=== PATIENT | male | born 1950 | race Caucasian/White ===

== ENCOUNTER 2017-10-25 11:18 | Emergency (ER) | payer MEDICARE ==
[2017-10-25 12:11] LABS: Hemoglobin 14.7 g/dL (14.0-18.0); Mean Corpuscular HGB CONC 34.3 g/dL (32.0-36.0); Mean Corpuscular Hemoglobin 34.5 pg (27.0-31.0); Mean Platelet Volume 6.7 fL (7.4-10.4); Platelet Count 216 thou/uL (130-400); RBC Distribution Width 11.9 % (11.5-14.5); Red Blood Cell (RBC) Count 4.26 mill/uL (4.70-6.10); White Blood Cell (WBC) Count 5.3 thou/uL (4.8-10.8)
[2017-10-25 12:29] LABS: ALT (SGPT) 52 U/L (8-55); AST (SGOT) 54 U/L (5-34); Albumin 4.1 g/dL (3.4-4.8); Alkaline Phosphatase 128 U/L (40-150); Anion Gap 13 mmol/L (10-20); BUN (Urea Nitrogen) 9 mg/dL (8.4-25.7); Bilirubin, Total 0.4 mg/dL (0.2-1.2); Calc. Creatinine Clearance 0 mL/min (70-130); Calcium 9.4 mg/dL (7.8-10.44); Carbon Dioxide 24 mmol/L (23-31); Chloride 93 mmol/L (98-107); Estimated GFR-MDRD 83; Globulin 3.2 g/dL (2.4-3.5); Glucose 189 mg/dL (80-115); Magnesium 1.8 mg/dL (1.6-2.6); Potassium 4.7 mmol/L (3.5-5.1); Protein, Total 7.3 g/dL (5.8-8.1); Sodium 125 mmol/L (136-145)
[2017-10-25 12:52] LABS: Lymphocytes 16 % (21-51); MDiff Complete? YES; Metamyelocyte 1 % (0-0); Monocytes 14 % (0-10); Neutrophil 69 % (42-75); PLT Morphology Comment Appears Adequate
== END 2017-10-25 14:40 | disposition home or self-care (01) ==
LOC: ERS 11:18
DX: E87.1 Hypo-osmolality and hyponatremia (principal); G62.9 Polyneuropathy, unspecified; E78.5 Hyperlipidemia, unspecified; I10 Essential (primary) hypertension; F41.9 Anxiety disorder, unspecified; F17.210 Nicotine dependence, cigarettes, uncomplicated; Z71.6 Tobacco abuse counseling
CPT/HCPCS: 36415; 80053; 83735; 84100; 85025; 99406

== ENCOUNTER 2018-05-11 00:42 | Inpatient (IN) | payer MEDICARE ==
[2018-05-11] MEDS ORDERED: Albuterol Sulfate 2.5 mg/3 ml Neb ONE ×2 (01:03→01:23)
[2018-05-11] MEDS ORDERED: Sodium Chloride 0.9% 100 ML ONE (01:07)
[2018-05-11] MEDS ORDERED: cefTRIAXone\\ROCEPHIN 2 GM VIAL ONE (01:07)
[2018-05-11] MEDS ORDERED: Azithromycin 500 MG VIAL ONE (01:07)
[2018-05-11 01:20] LABS: #Basophils 0.1 thou/uL (0.0-0.2); #Eosinphils 0.1 thou/uL (0.0-0.7); #Lymphocytes 1.9 thou/uL (1.20-3.40); #Monocytes 1.1 thou/uL (0.11-0.59); #Neutrophils 4.1 thou/uL (1.40-6.50); %Lymphocytes 25.8 % (21.0-51.0); %Monocytes 14.7 % (0.0-10.0); %Neutrophils 57.5 % (42.0-75.0); Hemoglobin 13.9 g/dL (14.0-18.0); Mean Corpuscular HGB CONC 33.2 g/dL (32.0-36.0); Mean Corpuscular Hemoglobin 33.2 pg (27.0-31.0); Mean Corpuscular Volume 99.9 fL (78.0-98.0); Mean Platelet Volume 7.8 fL (7.4-10.4); Platelet Count 311 thou/uL (130-400); RBC Distribution Width 11.7 % (11.5-14.5); White Blood Cell (WBC) Count 7.2 thou/uL (4.8-10.8)
[2018-05-11] MEDS ORDERED: Magnesium 2 GM/50 ML BAG (IN WATER) ONE (01:30)
[2018-05-11] MEDS ORDERED: methylPREDNISolone Sod Succ/PF 125 MG/2 ML VIAL ONE (01:30)
[2018-05-11 01:38] LABS: ALT (SGPT) 24 U/L (8-55); AST (SGOT) 27 U/L (5-34); Alkaline Phosphatase 88 U/L (40-150); Anion Gap 12 mmol/L (10-20); BUN (Urea Nitrogen) 11 mg/dL (8.4-25.7); Bilirubin, Total 0.6 mg/dL (0.2-1.2); Calc. Creatinine Clearance 0 mL/min (70-130); Calcium 9.2 mg/dL (7.8-10.44); Carbon Dioxide 26 mmol/L (23-31); Chloride 91 mmol/L (98-107); Estimated GFR-MDRD 79; Globulin 3.5 g/dL (2.4-3.5); Glucose 156 mg/dL (80-115); Potassium 4.1 mmol/L (3.5-5.1); Protein, Total 7.5 g/dL (5.8-8.1); Sodium 125 mmol/L (136-145)
[2018-05-11 01:43] LABS: CKMB 3.8 ng/mL (0-6.6)
[2018-05-11 01:45] LABS: Troponin I 6.238 ng/mL (< 0.028)
[2018-05-11] MEDS ORDERED: Furosemide 20 MG/2 ML VIAL ONE (01:55)
[2018-05-11] MEDS ORDERED: Enoxaparin Sodium 80 MG/0.8 ML SYRINGE ONE (02:02)
[2018-05-11] MEDS ORDERED: Enoxaparin Sodium 100 MG/ML SYRINGE ONE (02:06)
[2018-05-11] MEDS ORDERED: Albuterol Sulfate 2.5 mg/0.5 ml Neb ONE (02:13)
[2018-05-11] MEDS ORDERED: Sodium Chloride For Inhalation 0.9% 3 ML NEB ONE (02:20)
[2018-05-11] MEDS ORDERED: Dextrose 50% Abboject 50 ML SYRINGE SLOW IVP PRN (02:47)
[2018-05-11] MEDS ORDERED: Dextrose 5% in Water 1,000 ML IV PRN (02:47)
[2018-05-11] MEDS ORDERED: Ondansetron PF 4 MG/2 ML Vial IVP PRN (02:56)
[2018-05-11] MEDS ORDERED: Acetaminophen 325 MG TAB PO PRN (02:56)
[2018-05-11] MEDS ORDERED: Ondansetron ODT 4 MG TAB PO PRN (02:56)
[2018-05-11] MEDS ORDERED: Nicotine 14 MG PATCH TD SCH (03:00)
[2018-05-11 03:45] VITALS: BMI 28.3
--- NOTE | 2018-05-11 04:38 | HP ---
CHIEF COMPLAINT: Shortness of breath. HISTORY OF PRESENT ILLNESS: This is a 68-year-old male with past medical history of hyperlipidemia, hypertension, diabetes mellitus type 2, presenting with shortness of breath, chest discomfort and lower leg extremity numbness. Per patient, he has been having shortness of breath for the past 10 days and he states that his shortness of breath has been getting progressively worse and also patient has been stating that he has been having associated symptoms of left lower extremity numbness and patient has been dragging his foot while he walks. Per the patient, he has never had this type of symptoms in the past. The patient states that he last saw his primary care doctor 6 months ago and workup that was done for him was normal. The patient states that PCP is Dr. Davies. Per the patient, when he started having his symptoms of lower extremity numbness, shortness of breath, he contacted his primary care doctor and primary care doctor advised the patient to come to the ED. Per electronic medical records, the patient has been eating a lot of salts, patient does not take care of himself. Per the , the patient is noncompliant with some of his medications. The patient denies any fever, dizziness, chills, palpitations , abdominal pain; however, admits to shortness of breath for the past 10 days, chest discomfort and numbness in the left lower extremity. REVIEW OF SYSTEMS: Positive for shortness of breath, chest discomfort, left lower extremity numbness. Otherwise as documented in the HPI, all other systems reviewed and are negative PAST MEDICAL HISTORY: Hyperlipidemia, diabetes mellitus type 2, hypertension. FAMILY HISTORY: Reviewed and noncontributory. PAST SURGICAL HISTORY: No surgical history. PSYCHIATRIC HISTORY: Anxiety. SOCIAL HISTORY: The patient lives at home with . The patient is a chronic drinker. Per patient, he quit drinking 10 days ago. The patient drinks more than 10 drinks per day. The patient is also currently a tobacco smoker. The patient chews tobacco. The patient states that he quit smoking 10 days ago. The patient denies any illicit drug use. ALLERGIES: No known drug allergies. CURRENT MEDICATIONS: Per , patient takes lisinopril, atenolol. The patient is supposed to take atorvastatin, but patient does not take it and patient does not take his metformin. PHYSICAL EXAMINATION: VITAL SIGNS: Blood pressure is 167/84, pulse of 88, respiratory rate of 16, temperature of 98.6, oxygen saturation of 96 on room air. GENERAL: The patient is sitting in bed in mild distress. The patient has a nasal cannula on and patient is satting at 94 on 2 liters. The patient is able to speak in full sentences. The patient is not using accessory muscles to breathe. HEENT: Normocephalic, atraumatic. Pupils are equally round and reactive to light. Extraocular movements are intact. No scleral icterus. No conjunctival pallor. Mucous membranes are moist. Trachea is midline. Full range of motion. NECK: Supple. LUNGS: The patient has wheezes bilaterally at the anterior lung colón and posterior lung colón. The patient also has some rales that can be appreciated in the posterior lung colón at the bases bilaterally. CARDIOVASCULAR: The patient is tachycardic. No murmurs can be appreciated. ABDOMEN: Soft, nontender, nondistended. No peritoneal signs, no rigidity, no guarding. Positive bowel sounds in all quadrants. EXTREMITIES: Upper extremity, patient has good upper extremity strength and good radial pulses bilaterally. Lower extremity, patient has a rash noted at the posterior aspect around the heel, which looked as psoriasis. There are some scaly white lesions noted and some erythema around and at the knees, the white scaly lesions. The patient has 2+ pitting edema. The patient is having difficulty with range of motion at the ankle region; however, patient is able to move lower extremities bilaterally. NEUROLOGIC: Cranial nerves II-XII grossly intact. No neurologic deficits noted. SKIN: Refer to description of the lower extremity. PSYCHIATRIC: Normal affect. Alert and oriented x3. LABORATORY DATA: Chest x-ray shows bilateral pleural effusion and patchy infiltrates noted. WBC 7.2, hemoglobin is 13.9, hematocrit is 41.9, platelet count is 311. Sodium 125, potassium is 4.1, chloride is 91, carbon dioxide 26, anion gap of 12, BUN is 11, creatinine is 0.95, GFR is 79, glucose is 159, lactic acid of 2.1, calcium of 9.2, AST of 27, ALT of 24, alkaline phosphatase is 88. Troponin is 6.238. BNP is 2196. ASSESSMENT AND PLAN: This is a 68-year-old male being admitted for: 1. New onset acute congestive heart failure. The patient has been given Lasix in the ED. We are going to continue patient on Lasix. We have consulted Cardiology, we will follow up with their recommendations. We will start the patient on congestive heart failure protocol. 2. Shortness of breath likely due to overloaded state. The patient has infiltrated bilaterally on chest x-ray. The patient has been given Lasix. We will continue to diurese the patient. We will continue to monitor the patient. We will give DuoNeb treatments. We will give Solu-Medrol. We will put BiPAP p.r.n. to be given when patient is desaturating. We are going to admit the patient to the [facility] to be observed closely. We have consulted Pulmonology to see the patient. We will follow up with their recommendations. 3. Non ST elevation myocardial infarction. The patient had a troponin of 6.1. At this point, we are going to treat the patient for non ST elevation myocardial infarction. We have consulted Cardiology. We will continue patient on current management. 4. Hyponatremia, most likely due to hypervolemic state. The patient has acute congestive heart failure, most likely causing patient to have hyponatremia. At this point, the patient is being diuresed. We will continue to monitor the patient's sodium closely. We will follow up in the morning electrolytes. 5. History of diabetes mellitus type 2. We will do insulin sliding scale. 6. Hyperlipidemia. We will continue patient on atorvastatin. 7. Hypertension. We will monitor patient's blood pressure closely. We will give the patient blood pressure medications as needed. 8. Deep venous thrombosis and gastrointestinal prophylaxis. The patient is currently on therapeutic Lovenox. We will continue to monitor the patient. NEENAD
[2018-05-11 04:53] LABS: ALT (SGPT) 23 U/L (8-55); AST (SGOT) 22 U/L (5-34); Albumin 3.7 g/dL (3.4-4.8); Alkaline Phosphatase 79 U/L (40-150); Anion Gap 14 mmol/L (10-20); BUN (Urea Nitrogen) 11 mg/dL (8.4-25.7); Bilirubin, Total 0.4 mg/dL (0.2-1.2); Calc. Creatinine Clearance 105 mL/min (70-130); Calcium 8.7 mg/dL (7.8-10.44); Carbon Dioxide 26 mmol/L (23-31); Cardiac Risk 3.7 (Less than 4.5); Chloride 91 mmol/L (98-107); Cholesterol 139 mg/dl (< 200 Desired); Estimated GFR-MDRD 87; Globulin 3.2 g/dL (2.4-3.5); Glucose 176 mg/dL (80-115); HDL Cholesterol 38 mg/dL (>60 Neg Risk); LDL Cholesterol, Calculated 88 mg/dL; Magnesium 1.8 mg/dL (1.6-2.6); Potassium 4.2 mmol/L (3.5-5.1); Protein, Total 6.9 g/dL (5.8-8.1); Sodium 127 mmol/L (136-145); Triglycerides 67 mg/dL (Less than 150)
[2018-05-11 04:59] LABS: #Lymphocytes 0.4 thou/uL (1.20-3.40); #Monocytes 0.4 thou/uL (0.11-0.59); #Neutrophils 7.2 thou/uL (1.40-6.50); %Eosinophils 0.3 % (0.0-10.0); %Lymphocytes 4.9 % (21.0-51.0); %Monocytes 4.7 % (0.0-10.0); Critical Call Chem Troponin I RESULT DECREASING; Mean Corpuscular HGB CONC 33.7 g/dL (32.0-36.0); Mean Corpuscular Hemoglobin 33.5 pg (27.0-31.0); Mean Corpuscular Volume 99.3 fL (78.0-98.0); Mean Platelet Volume 8.1 fL (7.4-10.4); Platelet Count 271 thou/uL (130-400); RBC Distribution Width 11.7 % (11.5-14.5); Red Blood Cell (RBC) Count 3.88 mill/uL (4.70-6.10); Troponin I 4.554 ng/mL (< 0.028)
[2018-05-11 05:18] LABS: Lactic Acid 1.8 mmol/L (0.5-2.2)
[2018-05-11] MEDS: Nicotine 14 MG PATCH TD SCH (05:40)
[2018-05-11] MEDS: Furosemide 40 MG/4 ML VIAL SLOW IVP SCH ×2 (05:43→13:14)
[2018-05-11] MEDS: Nitroglycerin 2% Ointment 1 INCH/1 GM Packet TOP SCH ×3 (05:44→22:23)
[2018-05-11] MEDS: HumaLOG 300 UNITS/3 ML VIAL SC PRN (06:00)
[2018-05-11] MEDS ORDERED: cefTRIAXone\\ROCEPHIN 1 GM in Sodium Chloride 0.9% 100 ML IVPB SCH (07:00)
--- NOTE | 2018-05-11 07:48 | RAD ---
CHEST 1 VIEW: Date: 05/11/18 INDICATION: History of shortness of breath, chest pain. COMPARISON: None. FINDINGS: There is cardiomegaly with prominent perihilar interstitial and air space opacities. There are small bilateral pleural effusions. No pneumothorax is evident. No acute osseous abnormality is evident. IMPRESSION: Cardiomegaly with pulmonary vascular congestion, perihilar opacities, and bilateral pleural effusions , suspicious for CHF. Prominent perihilar infiltrates from pneumonia is not excluded. Recommend mendoza nued radiographic follow-up. POS: HEIDE
[2018-05-11] MEDS ORDERED: Azithromycin 500 MG in Sodium Chloride 0.9% 250 ML 250 ML IVPB SCH (08:00)
[2018-05-11 08:51] LABS: Troponin I 4.879 ng/mL (< 0.028)
--- NOTE | 2018-05-11 09:19 | RAD ---
PORTABLE CHEST 1 VIEW: Date: 05/11/18 Time: 0524 hours HISTORY: Congestive heart failure. FINDINGS/IMPRESSION: Comparison made with exam at 0058 hours from the same date. There has been interval worsening of pulmonary vascular congestion since the earlier exam. POS: LANDRY
[2018-05-11] MEDS: Clopidogrel Bisulfate 75 MG TAB PO SCH (09:55)
[2018-05-11] MEDS: Aspirin 325 MG TAB PO SCH (09:55)
[2018-05-11] MEDS: Enoxaparin Sodium 100 MG/ML SYRINGE SC SCH ×2 (09:55→20:37)
[2018-05-11] MEDS: Lisinopril 10 MG TAB PO SCH (09:56)
--- NOTE | 2018-05-11 16:11 | PDOC.EVN ---
Event Note - Event Note Event Note: Pt seen & examined.Chart reviewed.care discussed wpt and at bedside.care discussed w RN Smokes like a chimey and drinks 14-18 beers daily. FH of Stroke in both parents One brother had PPM. Cont diuresis. Cont BID lovenox and ASA,plavix,BB,JESSICA-I..Await ECHO results.Cardiology consulted cont nebs,steroids,ABx. HD stable. Will fiordaliza need cardiac Catheterization
[2018-05-11] MEDS ORDERED: Communication Order-Pharmacy FS SCH (16:15)
[2018-05-11] MEDS: Carvedilol 3.125 MG TAB PO SCH (17:38)
[2018-05-11] MEDS: Atorvastatin Calcium 40 MG TAB PO SCH (20:37)
--- NOTE | 2018-05-11 21:39 | CON ---
DATE OF CONSULTATION: 05/11/2018 DATE OF ADMISSION: 05/11/2018 INDICATION FOR CONSULTATION: A 68-year-old patient with a history of congestive heart failure, new o nset. HISTORY OF PRESENT ILLNESS: This is a very unfortunate 68-year-old gentleman who has had no signific ant cardiac history in the past, but does have risk factors of coronary artery disease, which include hypertension, diabetes, hyperlipidemia, significant tobacco abuse. He smoked he said all of his lif e and he has also drank heavily. He drinks up to a case of beers or 30 beers a day sometimes and smo ked 1.5 to 2 packs a day. He stopped smoking about 10 days ago. He has been drinking heavily the ni ght before on Wednesday night. He went to bed and Wednesday morning when he woke up, he was having chest pain. He just thought he felt badly and thought he was coming down with something, but did not repo rt to the hospital, but then he developed shortness of breath, which continued to worsen. He then pr esented to the emergency room and was admitted to the hospital, where he was found to have positive c ardiac enzymes. They have been trending downwards. It appears that he has suffered a myocardial inf arction on Wednesday and waited about 10 days before coming to the hospital. He has had EKGs, which vidhi wed evidence of a large anterior myocardial infarction. Echocardiogram shows ejection fraction of ab out 10%-15%. The entire anterior wall, apex, and septum are akinetic and ejection fraction is about 10%-15%. He has been given diuresis and has actually diuresed quite a bit and is feeling better. He denied any lower extremity edema. His chest x-ray did show what appeared to be acute pulmonary cindi a. At this time, he is very comfortable. He denies any chest pain or shortness of breath, but does feel fatigued or tired and when he tried to do things even in and around the room, he does feel fatig ued. PAST MEDICAL HISTORY: Significant for the diabetes type 2, hypertension, and dyslipidemia. He has s ome degree of claudication, but it is not significant. He has had no other significant operations or illnesses. FAMILY HISTORY: Noncontributory. ALLERGIES: None. MEDICATIONS AT HOME: He was taking medicines for he said for his hypertension. He was taking lisino pril 20 mg b.i.d., aspirin 81 mg a day, citalopram, and atenolol 25 mg a day. At this time, he has been given azithromycin. He is on ceftriaxone for possible pneumonia angel ears to be heart failure. He has been given prednisolone. He is on nitroglycerin paste. He has a N icoderm patch. He is on aspirin 325 mg a day, atorvastatin 40 mg q.p.m. He has been given Plavix 75 mg a day; as well as Lovenox, he is on a therapeutic dose of 90 mg b.i.d. Lasix is 40 mg b.i.d. He is on albuterol inhalers, lisinopril 10 mg a day. He is on insulin with a sliding scale. LABORATORY DATA: Shows a troponin I on admission of 6.23, which has trended down to 4.5 and now 4.8. His MB was 3.8. BNP was 2196. His WBC was 8, hemoglobin is 13, creatinine is 0.88 with a BUN of 1 1. Sodium is 127, blood sugar was 176. EKG shows a sinus rhythm with evidence of a probable large anterior myocardial infarction with decrea sed R-wave progression in V1 through V5 with evidence of what appears to be chronic ST changes or archie vation in the lateral leads, most likely compatible with aneurysmal type formation and T-wave inversi ons in I and aVL. REVIEW OF SYSTEMS: Twelve-point review of systems is unremarkable except as noted in the history of the present illness except for some discomfort in his legs if he over exerts himself. SOCIAL HISTORY: Please note that he does drink and smoke heavily. 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 PHYSICAL EXAMINATION: GENERAL: Reveals an elderly gentleman who is in no acute distress. He is alert. He is oriented. VITAL SIGNS: Blood pressure 91/40, respiratory rate 20, heart rates in the 80s and shows a sinus rhy thm. He is afebrile. HEENT: Shows the head to be normocephalic and atraumatic. I cannot hear any bruits. CHEST: Actually appears to be clear to auscultation, but no rales, rhonchi, or wheezing are noted at this time. CARDIOVASCULAR: Reveals a regular rhythm. He has S1 and S2. I cannot hear any significant S3 or S4 at this time. ABDOMEN: Soft and nontender. Positive bowel sounds are present. EXTREMITIES: No clubbing, cyanosis, or edema. Pedal pulses are present, but are decreased. NEUROLOGIC: The patient appears to be fully intact. SKIN: Warm and dry. PSYCHOSOCIAL: He appears to be normal. Echocardiogram as noted showed ejection fraction of 10%-15% with anterior wall, septum, and apex to b e completely akinetic. The left atrium was moderately dilated. He also has some mild aortic valve s clerosis and [id number] mitral valve regurgitation. Ejection fraction of 15%-20%. IMPRESSION: 1. The patient probably suffered a myocardial infarction 10 days ago at home on a Wednesday and did not seek medical treatment until now. It is unlikely that there will be any viable myocardium in this a guera. He has suffered a large anterior myocardial infarction is my suspicion. Once he is stable in t he next 1-2 days, he will need to be taken to the cardiac catheterization lab to undergo cardiac cath eterization for evaluation of the remaining coronary arteries to see whether or not he is at risk of further myocardial infarction. I did not see that he is on beta-blockers at this time. His heart ra te is not significant. I will start him on a low dose of Coreg to see whether or not he tolerates th is. We will continue the diuretics as well as JESSICA inhibitors. When he is discharged, he will most c ertainly will need to either have LifeVest and then he will need to have repeat echocardiogram in abo ut 3 months to determine whether or not ejection fraction has improved with medical management. If n ot, he will need to undergo an implantation of a permanent device. 2. Cardiomyopathy, which is as noted above. 3. Recent anterior myocardial infarction. We will continue to monitor this and as noted, will need to have cardiac catheterization. 4. Hyponatremia. We will need to fluid restrict him and then hopefully the sodium will correct itse lf. 5. Type 2 diabetes. He is on a sliding scale. This will be dealt with by the primary care physicia ns. 6. Ethanol abuse. I have strongly encouraged him to stop drinking altogether as also the alcohol is toxic to the myocardium. 7. Tobacco abuse. He was also strongly encouraged to stop smoking altogether. We would be more [place] n happy to continue to follow the patient with you, but he will need to undergo cardiac catheterizati on as a method to determine the degree of his coronary artery disease and the possible extent of the damage caused by the recent myocardial infarction.
--- NOTE | 2018-05-11 22:03 | CON ---
DATE OF CONSULTATION: 05/11/2018 HISTORY OF PRESENT ILLNESS: Mr. Lebron is a 68-year-old male. He has history of hypertension. He says he takes his blood pressure medicine and has not noticed blood pressure being out of control. For the last week, he is complaining of a cough and chest congestion. He denies ever being in the hospital for this and denies ever being told he has congestive heart fail ure. He is a smoker and he also chews tobacco. He denies having anginal type chest pain, but says his chest has been uncomfortable during this entir e time. PAST MEDICAL HISTORY: Remarkable for lipid disorder, hypertension, and anxiety. SOCIAL HISTORY: As mentioned, he is a smoker and chews tobacco. He also drinks every day, sometimes significant amounts. ALLERGIES: Has no reported drug allergies. MEDICATIONS: Prior to admission, he was on aspirin, citalopram, atenolol and lisinopril. PHYSICAL EXAMINATION: GENERAL: He is in no distress. Surprisingly, he was lying about 30 degrees and totally comfortable. HEENT: He is afebrile, heart rate is 90, respiratory rate is 20, oximetry is 96 on room air, blood p ressure 91/40. HEENT: Pupils are equal. Sclerae are anicteric. NECK: Supple, no lymphadenopathy. LUNGS: Remarkable for crackles, really audible diffusely posteriorly. HEART: Regular rhythm. No S3. ABDOMEN: Soft and nontender. EXTREMITIES: Without clubbing, cyanosis or edema. LABORATORY DATA AND IMAGING: White count 8, hemoglobin 13, platelets 271. Sodium 127, potassium 4.2 , chloride 91, bicarbonate 26, BUN 11, creatinine 0.8. Troponin was 4.8. Liver enzymes were normal. BNP was 2196. Chest radiograph shows diffuse alveolar infiltrates. Intake and output is negative 970 mL. IMPRESSION AND PLAN: Diffuse infiltrates consistent with congestive heart failure. I doubt he has p neumonia. He will need to be worked up with a positive troponin and also will probably need to have his coronar ies looked out. He certainly could have an ischemic cardiomyopathy or could just simply have an alcohol-induced cardi omyopathy. His steroid dosing can be decreased tomorrow. We can probably simplify antibiotics tomorrow. I woul d recommend repeating a chest radiograph in the morning. This is a 50-minute consult, 50% of the time was spent coordinating care on the unit.
[2018-05-12] MEDS: Azithromycin 500 MG in Sodium Chloride 0.9% 250 ML 250 ML IVPB SCH (00:25)
[2018-05-12] MEDS: cefTRIAXone\\ROCEPHIN 1 GM in Sodium Chloride 0.9% 100 ML IVPB SCH (01:38)
[2018-05-12] MEDS: Furosemide 40 MG/4 ML VIAL SLOW IVP SCH ×2 (06:06→13:59)
[2018-05-12] MEDS: Carvedilol 3.125 MG TAB PO SCH ×2 (06:06→17:28)
[2018-05-12] MEDS: Nitroglycerin 2% Ointment 1 INCH/1 GM Packet TOP SCH ×3 (06:07→21:49)
[2018-05-12] MEDS: Lisinopril 10 MG TAB PO SCH (06:07)
[2018-05-12] MEDS: Nicotine 14 MG PATCH TD SCH (06:18)
--- NOTE | 2018-05-12 09:02 | RAD ---
AP VIEW CHEST: HISTORY: Ventilator-dependent patient. FINDINGS: AP view chest was obtained on 05/12/2018. Comparison is made to previous exam from 05/11/2018. AP view chest demonstrates pulmonary vascular congestion. There is diffuse airspace opacity seen thr oughout the lungs. Prominent interstitial markings are also seen. No evidence of nasogastric or endotracheal tube seen. Bilateral pleural effusions noted. No signifi cant interval change is seen since the previous exam. IMPRESSION: Pulmonary vascular congestion and bilateral pleural effusions. Radiographic appearance of the chest is stable. POS: [facility]
[2018-05-12] MEDS ORDERED: Lisinopril 10 MG TAB PO SCH (09:04)
[2018-05-12] MEDS ORDERED: Lidocaine 1% (PF) 30 ML VIAL ONE (09:13)
[2018-05-12 09:42] LABS: Anion Gap 17 mmol/L (10-20); BUN (Urea Nitrogen) 12 mg/dL (8.4-25.7); Calc. Creatinine Clearance 106 mL/min (70-130); Calcium 8.7 mg/dL (7.8-10.44); Carbon Dioxide 23 mmol/L (23-31); Chloride 91 mmol/L (98-107); Estimated GFR-MDRD 89; Glucose 165 mg/dL (80-115); Potassium 5.8 mmol/L (3.5-5.1); Sodium 125 mmol/L (136-145)
[2018-05-12] MEDS: Aspirin 325 MG TAB PO SCH (09:42)
[2018-05-12] MEDS: Lisinopril 2.5 MG TAB PO SCH (09:42)
[2018-05-12] MEDS: Clopidogrel Bisulfate 75 MG TAB PO SCH (09:42)
--- NOTE | 2018-05-12 09:46 | PRG ---
DATE OF SERVICE: 05/12/2018 He feels much better. PHYSICAL EXAMINATION: VITAL SIGNS: He is afebrile, heart rate 82, respiratory rate 17, oximetry is 97 on room air, blood p ressure 180/72. LUNGS: Crackles at his bases. His chest exam is improved. HEART: Regular rhythm. He has a grade 2/6 systolic murmur. ABDOMEN: Soft and nontender. EXTREMITIES: Without clubbing, cyanosis, or edema. Echocardiogram showed an ejection fraction of 15-20%. He had mild to moderate mitral regurgitation with a dilated left atrium. Chest radiograph reviewed by me shows improvement of his pulmonary edema. LABORATORY DATA: There is no new lab today. IMPRESSION: 1. Congestive heart failure associated with myocardial infarction. 2. Heavy alcohol abuse. 3. Heavy tobacco use. PLAN: Cardiac catheterization is planned by the color receiver. He is clinically stable at this time.
[2018-05-12] MEDS ORDERED: Sodium Chloride 0.9% 200 ML IV SCH (10:26)
[2018-05-12] MEDS ORDERED: traMADol HCl 50 MG TAB PO PRN (10:26)
[2018-05-12] MEDS ORDERED: Acetaminophen/Codeine 30-300mg Tablet PO PRN ×2 (10:26)
[2018-05-12] MEDS ORDERED: Nitroglycerin 0.4 MG TAB (25 Tab Bottle) SL PRN (10:26)
[2018-05-12] MEDS ORDERED: Iopamidol 370 76% 100 ML VIAL ONE (13:27)
--- NOTE | 2018-05-12 14:44 | PDOC.PN ---
- Subjective Encounter Start Date: 05/12/18 Encounter Start Time: 19:31 Subjective: s/p cardiac Cath earlier today and feels well -: no CP/SOB - Objective Resuscitation Status: Resuscitation Status FULL:Full Resuscitation MAR Reviewed: Yes Vital Signs & Weight: Vital Signs (12 hours) Temp Pulse Resp BP BP BP BP 05/12/18 13:55 115 H 16 05/12/18 12:00 05/12/18 11:18 97.8 F 96 15 113/79 05/12/18 10:26 87 18 108/87 05/12/18 09:42 92 05/12/18 08:00 05/12/18 07:34 98.3 F 92 17 108/72 05/12/18 06:25 102 H 20 05/12/18 06:07 112/71 05/12/18 03:56 98.4 F 93 20 103/69 Pulse Ox 05/12/18 13:55 93 L 05/12/18 12:00 91 L 05/12/18 11:18 90 L 05/12/18 10:26 05/12/18 09:42 05/12/18 08:00 97 05/12/18 07:34 97 05/12/18 06:25 95 05/12/18 06:07 05/12/18 03:56 92 L Weight Weight 194 lb 12.8 oz I&O: 05/11/18 05/12/18 05/13/18 06:59 06:59 06:59 Intake Total 30 700 Output Total 1000 2700 Balance -970 -2000 Result Diagrams: 05/11/18 04:18 05/12/18 05:30 Additional Labs: Accuchecks 05/12/18 05/12/18 05/11/18 11:16 05:20 20:38 POC Glucose 149 H 169 H 226 H 05/11/18 17:42 POC Glucose 168 H Microbiology 05/11/18 01:06 Venous blood - Left Arm Blood Culture - Preliminary Specimen has been received and culture in progress. No Growth to date. 05/11/18 00:57 Venous blood - Right Arm Blood Culture - Preliminary Specimen has been received and culture in progress. No Growth to date. Laboratory Tests 05/11/18 05/11/18 05/11/18 00:57 04:18 04:18 Troponin I 6.238 H* 4.554 H* Triglycerides 67 Cholesterol 139 LDL Cholesterol, Calc 88 HDL Cholesterol 38 05/11/18 08:10 Troponin I 4.879 H* Triglycerides Cholesterol LDL Cholesterol, Calc HDL Cholesterol Phys Exam - Physical Examination Constitutional: NAD HEENT: PERRLA, moist MMs, sclera anicteric, oral pharynx no lesions Neck: no nodes, no JVD, supple, full ROM Respiratory: no wheezing, no rales, no rhonchi, clear to auscultation bilateral Cardiovascular: RRR, no significant murmur, no rub Gastrointestinal: soft, non-tender, no distention, positive bowel sounds Musculoskeletal: no edema, pulses present Neurological: non-focal, normal sensation, moves all 4 limbs Psychiatric: normal affect, A&O x 3 Skin: no rash Dx/Plan (1) NSTEMI (non-ST elevated myocardial infarction) Code(s): I21.4 - NON-ST ELEVATION (NSTEMI) MYOCARDIAL INFARCTION Status: Acute Comment: large Anterior MO accd to Cath (2) Acute systolic CHF (congestive heart failure) Code(s): I50.21 - ACUTE SYSTOLIC (CONGESTIVE) HEART FAILURE Status: Acute (3) Hyponatremia Code(s): E87.1 - HYPO-OSMOLALITY AND HYPONATREMIA Status: Acute Comment: Likley due to Beer potomania and CHF.Suspect Chronic (4) Hyperkalemia Code(s): E87.5 - HYPERKALEMIA Status: Acute (5) COPD (chronic obstructive pulmonary disease) Status: Acute (6) Alcohol abuse Code(s): F10.10 - ALCOHOL ABUSE, UNCOMPLICATED Status: Chronic (7) Tobacco abuse Code(s): Z72.0 - TOBACCO USE Status: Chronic (8) Cardiomyopathy Code(s): I42.9 - CARDIOMYOPATHY, UNSPECIFIED Status: Chronic (9) HTN (hypertension) Code(s): I10 - ESSENTIAL (PRIMARY) HYPERTENSION Status: Chronic (10) DM2 (diabetes mellitus, type 2) Status: Chronic (11) HLD (hyperlipidemia) Code(s): E78.5 - HYPERLIPIDEMIA, UNSPECIFIED Status: Chronic - Plan continue antibiotics, PT/OT, respiratory therapy, incentive spirometry, out of bed/ambulate, DVT proph w/SCDs Change solumedrol to BID. taper .change ABx to PO after last dose today -: cont diuresis -: reduce Lisinopril as BP low.DC Nitro paste and increase lisinopril tomorrow -: cont ASA,plavix,BB,statin.LifeVest to be fitted -: HD stable. * . labs in am Review of Systems - Review of Systems Constitutional: weakness ENT: negative: Ear Pain, Ear Discharge, Nose Pain, Nose Discharge, Nose Congestion, Mouth Pain, Mouth Swelling, Throat Pain, Throat Swelling, Other Respiratory: negative: Cough, Dry, Shortness of Breath, Hemoptysis, SOB with Excertion, Pleuritic Pain, Sputum, Wheezing Cardiovascular: negative: chest pain, palpitations, orthopnea, paroxysmal nocturnal dyspnea, edema, light headedness, other Gastrointestinal: negative: Nausea, Vomiting, Abdominal Pain, Diarrhea, Constipation, Melena, Hematochezia, Other Genitourinary: negative: Dysuria, Frequency, Incontinence, Hematuria, Retention , Other Musculoskeletal: negative: Neck Pain, Shoulder Pain, Arm Pain, Back Pain, Hand Pain, Leg Pain, Foot Pain, Other Skin: negative: Rash, Lesions, Av, Bruising, Other Neurological: negative: Weakness, Numbness, Incoordination, Change in Speech, Confusion, Seizures, Other - Medications/Allergies Allergies/Adverse Reactions: Allergies Allergy/AdvReac Type Severity Reaction Status Date / Time No Known Allergies Allergy Verified 05/11/18 03:45 Medications: Current Medications Acetaminophen (Tylenol) 650 mg PO Q4H PRN PRN Reason: Headache/Fever/Mild Pain (1-3) Acetaminophen/Codeine Phosphate (Tylenol #3) 1 tab PO Q4H PRN PRN Reason: Mild Pain (1-3) Acetaminophen/Codeine Phosphate (Tylenol #3) 2 tab PO Q4H PRN PRN Reason: Moderate Pain (4-6) Albuterol/Ipratropium (Duoneb) 3 ml NEB [id number] [facility] Last Admin: 05/12/18 13:55 Dose: 3 ml Aspirin (Aspirin) 325 mg PO DAILY [facility] Last Admin: 05/12/18 09:42 Dose: Not Given Atorvastatin Calcium (Lipitor) 40 mg PO HS [facility] Last Admin: 05/11/18 20:37 Dose: 40 mg Carvedilol (Coreg) 1.566 mg PO BID-[facility] Last Admin: 05/12/18 06:06 Dose: 1.566 mg Clopidogrel Bisulfate (Plavix) 75 mg PO QAM [facility] Last Admin: 05/12/18 09:42 Dose: Not Given Dextrose/Water (Dextrose 50%) 25 gm SLOW IVP PRN PRN PRN Reason: Hypoglycemia Furosemide (Lasix) 40 mg SLOW IVP 0600,1400 [facility] Last Admin: 05/12/18 13:59 Dose: 40 mg Glucagon (Glucagon) 1 mg IM PRN PRN PRN Reason: Hypoglycemia Dextrose/Water (D5w) 1,000 mls @ 0 mls/hr IV .Q0M PRN PRN Reason: Hypoglycemia Azithromycin 500 mg/ Sodium (Chloride) 250 mls @ 250 mls/hr IVPB Q24HR [facility] Last Admin: 05/12/18 00:25 Dose: 250 mls Ceftriaxone Sodium 1 gm/ (Sodium Chloride) 100 mls @ 200 mls/hr IVPB Q24HR [facility] Last Admin: 05/12/18 01:38 Dose: 100 mls Insulin Human Lispro (Humalog) 0 units SC .MILD SLIDING SCALE PRN PRN Reason: Mild Correctional Scale Last Admin: 05/11/18 06:00 Dose: 2 unit Lisinopril (Zestril) 2.5 mg PO DAILY [facility] Last Admin: 05/12/18 09:42 Dose: Not Given Methylprednisolone Sodium Succinate (Solu-Medrol) 40 mg IVP Q6HR [facility] Last Admin: 05/12/18 12:13 Dose: 40 mg Miscellaneous Medication (Pharmacy To Dose) 1 each IVPB ASDIR [facility] Nicotine (Nicoderm Patch) 14 mg TD 0600 [facility] Last Admin: 05/12/18 06:18 Dose: Not Given Nitroglycerin (Nitro-Bid 2% Ointment) 0.5 inch TOP Q8HR [facility] Last Admin: 05/12/18 13:59 Dose: 0.5 inch Nitroglycerin (Nitrostat) 0.4 mg SL Q5MIN PRN PRN Reason: Chest Pain Ondansetron HCl (Zofran Odt) 4 mg PO Q6H PRN PRN Reason: Nausea/Vomiting Ondansetron HCl (Zofran) 4 mg IVP Q6H PRN PRN Reason: Nausea/Vomiting Sodium Chloride (Flush - Normal Saline) 10 ml IVF Q12HR [facility] Last Admin: 05/12/18 09:42 Dose: Not Given Sodium Chloride (Flush - Normal Saline) 10 ml IVF PRN PRN PRN Reason: Saline Flush Last Admin: 05/12/18 06:11 Dose: 10 ml Tramadol HCl (Ultram) 50 mg PO Q6H PRN PRN Reason: Moderate Pain (4-6)
[2018-05-12 15:06] LABS: Hemoglobin A1c 5.3 % (4.0-6.0)
--- NOTE | 2018-05-12 17:21 | PDOC.CTH ---
Cardiology Progress Note - Subjective Pt. was seen and eval. by me. No new events overnight. Cardiac catheterization this AM indicated evidence of a large Anterior KY which occurred approx. 10 days ago per the pts's history of the events. The LAD was subtotal in the prox,- mid. area and heavy calcifications and atherosclerosis was present. I donot think he would benefit from attempting to reopen this artery. There is some flow down the severely stenosed and diseased vessel but there is no movement of the anterior wall. The RCA and L-circ. have 30-50% stenosis and will be managed bymedical treatment. He denies any chest pain or SOB. - Objective Vital Signs Temp Pulse Pulse Pulse Resp BP BP 05/12/18 16:00 05/12/18 15:22 97.8 F 110 H 22 H 05/12/18 14:57 108 H 117 H 123/81 05/12/18 13:55 115 H 16 05/12/18 12:00 05/12/18 11:18 97.8 F 96 15 05/12/18 10:26 87 18 108/87 05/12/18 09:42 92 05/12/18 08:00 05/12/18 07:34 98.3 F 92 17 05/12/18 06:25 102 H 20 05/12/18 06:07 112/71 BP BP BP Pulse Ox Pulse Ox Pulse Ox 05/12/18 16:00 97 05/12/18 15:22 128/82 97 05/12/18 14:57 128/82 97 96 05/12/18 13:55 93 L 05/12/18 12:00 91 L 05/12/18 11:18 113/79 90 L 05/12/18 10:26 05/12/18 09:42 05/12/18 08:00 97 05/12/18 07:34 108/72 97 05/12/18 06:25 95 05/12/18 06:07 Weight 194 lb 12.8 oz 05/11/18 05/12/18 05/13/18 06:59 06:59 06:59 Intake Total 30 700 Output Total 1000 2700 Balance -970 -2000 - Physical Examination General/Neuro: alert & oriented x3 Neck: carotid US brisk Lungs: CTA Heart: RRR Abdomen: NT/ND Extremities: + edema B - Labs Result Diagrams: 05/11/18 04:18 05/12/18 05:30 Troponin/CKMB CK-MB (CK-2) 3.8 ng/mL (0-6.6) 05/11/18 00:57 Troponin I 4.879 ng/mL (< 0.028) H* 05/11/18 08:10 - Assessment/Plan 1. s/p large anterior KY. Diffuse disease in LAD. Poor target for intervention. Since it has been 10 days since the KY it is unlikely that any myocardium supplied by this vessel is viable. Continue medical treatment for the remaining arteries. 2. Hyponatremia. Fluid restrict. 3. CMY- s/p KY. Life-Vest is indicated. He will wear tis for 90 days and if no improvement in the EF then an implantable AICD may be appropriate. 4. CHF- improved after diuretics. He is asymptomatic at this time. Continue diuretics,Jewel-I,Betablockers. Consider coumadin due to the large anterior KY to decrease the risk of LV thrombus. 5. Tobacco abue: absolutely must stop. 6. ETOH abuse: highly advisable to stop . 7. DMII- [facility] service. Review of Systems - Review of Systems Respiratory: reports: no symptoms reported Cardiac (ROS): reports: no symptoms reported ABD/GI: reports: no symptoms reported : reports: no symptoms reported Musculoskeletal: reports: no symptoms reported Neurological: reports: no symptoms reported
[2018-05-12] MEDS: HumaLOG 300 UNITS/3 ML VIAL SC PRN (17:24)
[2018-05-12] MEDS: Atorvastatin Calcium 40 MG TAB PO SCH (20:01)
[2018-05-13] MEDS: Azithromycin 500 MG in Sodium Chloride 0.9% 250 ML 250 ML IVPB SCH (00:43)
[2018-05-13] MEDS: cefTRIAXone\\ROCEPHIN 1 GM in Sodium Chloride 0.9% 100 ML IVPB SCH (01:46)
[2018-05-13 05:25] LABS: Anion Gap 12 mmol/L (10-20); BUN (Urea Nitrogen) 18 mg/dL (8.4-25.7); Calc. Creatinine Clearance 105 mL/min (70-130); Calcium 8.7 mg/dL (7.8-10.44); Carbon Dioxide 28 mmol/L (23-31); Chloride 91 mmol/L (98-107); Estimated GFR-MDRD 90; Glucose 143 mg/dL (80-115); Potassium 4.3 mmol/L (3.5-5.1); Sodium 127 mmol/L (136-145)
[2018-05-13] MEDS: Furosemide 40 MG/4 ML VIAL SLOW IVP SCH ×2 (05:41→13:00)
[2018-05-13] MEDS: Nitroglycerin 2% Ointment 1 INCH/1 GM Packet TOP SCH ×2 (05:42→13:00)
[2018-05-13] MEDS: Nicotine 14 MG PATCH TD SCH (05:42)
[2018-05-13] MEDS: Carvedilol 3.125 MG TAB PO SCH ×2 (08:50→16:13)
[2018-05-13] MEDS: Clopidogrel Bisulfate 75 MG TAB PO SCH (08:52)
[2018-05-13] MEDS: Aspirin 325 MG TAB PO SCH (08:52)
[2018-05-13] MEDS: Lisinopril 2.5 MG TAB PO SCH (08:52)
[2018-05-13] MEDS ORDERED: Amoxicillin/Potassium Clav 875 MG TAB PO SCH (09:00)
--- NOTE | 2018-05-13 14:38 | PDOC.PN ---
- Subjective Encounter Start Date: 05/13/18 Encounter Start Time: 11:45 Subjective: feels better,no chest pain/SOB - Objective Resuscitation Status: Resuscitation Status FULL:Full Resuscitation MAR Reviewed: Yes Vital Signs & Weight: Vital Signs (12 hours) Temp Pulse Resp BP BP Pulse Ox 05/13/18 11:07 98.5 F 88 18 116/72 94 L 05/13/18 08:10 92 L 05/13/18 08:04 108 H 12 05/13/18 07:14 98.5 F 98 16 127/71 93 L 05/13/18 03:45 98.5 F 87 20 108/60 92 L Weight Weight 191 lb 12.8 oz I&O: 05/12/18 05/13/18 05/14/18 06:59 06:59 06:59 Intake Total 700 2625 Output Total 2700 3225 Balance -1999 -600 Result Diagrams: 05/11/18 04:18 05/13/18 04:29 Additional Labs: Accuchecks 05/13/18 05/12/18 05/12/18 05:33 21:34 17:15 POC Glucose 156 H 129 H 156 H Phys Exam - Physical Examination Constitutional: NAD HEENT: PERRLA, moist MMs, sclera anicteric, oral pharynx no lesions Neck: no nodes, no JVD, supple, full ROM Respiratory: no wheezing, no rales, no rhonchi, clear to auscultation bilateral Cardiovascular: RRR, no significant murmur, no rub Gastrointestinal: soft, non-tender, no distention, positive bowel sounds Musculoskeletal: no edema, pulses present Neurological: non-focal, normal sensation, moves all 4 limbs Psychiatric: normal affect, A&O x 3 Skin: no rash Dx/Plan (1) NSTEMI (non-ST elevated myocardial infarction) Code(s): I21.4 - NON-ST ELEVATION (NSTEMI) MYOCARDIAL INFARCTION Status: Acute Comment: large Anterior MS accd to Cath (2) Acute systolic CHF (congestive heart failure) Code(s): I50.21 - ACUTE SYSTOLIC (CONGESTIVE) HEART FAILURE Status: Acute (3) Hyponatremia Code(s): E87.1 - HYPO-OSMOLALITY AND HYPONATREMIA Status: Acute Comment: Likley due to Beer potomania and CHF.Suspect Chronic (4) Hyperkalemia Code(s): E87.5 - HYPERKALEMIA Status: Acute (5) COPD (chronic obstructive pulmonary disease) Status: Acute (6) Alcohol abuse Code(s): F10.10 - ALCOHOL ABUSE, UNCOMPLICATED Status: Chronic (7) Tobacco abuse Code(s): Z72.0 - TOBACCO USE Status: Chronic (8) Cardiomyopathy Code(s): I42.9 - CARDIOMYOPATHY, UNSPECIFIED Status: Chronic (9) HTN (hypertension) Code(s): I10 - ESSENTIAL (PRIMARY) HYPERTENSION Status: Chronic (10) DM2 (diabetes mellitus, type 2) Status: Chronic (11) HLD (hyperlipidemia) Code(s): E78.5 - HYPERLIPIDEMIA, UNSPECIFIED Status: Chronic - Plan continue antibiotics, PT/OT, DVT proph w/SCDs change abx to PO.taper steroid. -: lifevest today.cont diuresis. change to po -: cont ASA,bb,plavix,juan a-i,statin -: dc home later today if ok w cardiology * . Review of Systems - Review of Systems Constitutional: negative: fever, chills, sweats, weakness, malaise, other ENT: negative: Ear Pain, Ear Discharge, Nose Pain, Nose Discharge, Nose Congestion, Mouth Pain, Mouth Swelling, Throat Pain, Throat Swelling, Other Respiratory: negative: Cough, Dry, Shortness of Breath, Hemoptysis, SOB with Excertion, Pleuritic Pain, Sputum, Wheezing Cardiovascular: negative: chest pain, palpitations, orthopnea, paroxysmal nocturnal dyspnea, edema, light headedness, other Gastrointestinal: negative: Nausea, Vomiting, Abdominal Pain, Diarrhea, Constipation, Melena, Hematochezia, Other Genitourinary: negative: Dysuria, Frequency, Incontinence, Hematuria, Retention , Other Musculoskeletal: negative: Neck Pain, Shoulder Pain, Arm Pain, Back Pain, Hand Pain, Leg Pain, Foot Pain, Other Skin: negative: Rash, Lesions, Av, Bruising, Other Neurological: negative: Weakness, Numbness, Incoordination, Change in Speech, Confusion, Seizures, Other - Medications/Allergies Allergies/Adverse Reactions: Allergies Allergy/AdvReac Type Severity Reaction Status Date / Time No Known Allergies Allergy Verified 05/11/18 03:45 Medications: Current Medications Acetaminophen (Tylenol) 650 mg PO Q4H PRN PRN Reason: Headache/Fever/Mild Pain (1-3) Acetaminophen/Codeine Phosphate (Tylenol #3) 1 tab PO Q4H PRN PRN Reason: Mild Pain (1-3) Acetaminophen/Codeine Phosphate (Tylenol #3) 2 tab PO Q4H PRN PRN Reason: Moderate Pain (4-6) Albuterol/Ipratropium (Duoneb) 3 ml NEB [id number] [facility] Last Admin: 05/13/18 08:04 Dose: 3 ml Amoxicillin/Clavulanate Potassium (Augmentin) 875 mg PO Q12HR [facility] Last Admin: 05/13/18 10:01 Dose: 875 mg Aspirin (Aspirin) 325 mg PO DAILY [facility] Last Admin: 05/13/18 08:52 Dose: 325 mg Atorvastatin Calcium (Lipitor) 40 mg PO HS [facility] Last Admin: 05/12/18 20:01 Dose: 40 mg Carvedilol (Coreg) 1.566 mg PO BID-WM [facility] Last Admin: 05/13/18 08:50 Dose: 1.566 mg Clopidogrel Bisulfate (Plavix) 75 mg PO QAM [facility] Last Admin: 05/13/18 08:52 Dose: 75 mg Dextrose/Water (Dextrose 50%) 25 gm SLOW IVP PRN PRN PRN Reason: Hypoglycemia Furosemide (Lasix) 40 mg SLOW IVP 0600,1400 [facility] Last Admin: 05/13/18 13:00 Dose: 40 mg Glucagon (Glucagon) 1 mg IM PRN PRN PRN Reason: Hypoglycemia Dextrose/Water (D5w) 1,000 mls @ 0 mls/hr IV .Q0M PRN PRN Reason: Hypoglycemia Insulin Human Lispro (Humalog) 0 units SC .MILD SLIDING SCALE PRN PRN Reason: Mild Correctional Scale Last Admin: 05/12/18 17:24 Dose: 2 unit Lisinopril (Zestril) 2.5 mg PO DAILY [facility] Last Admin: 05/13/18 08:52 Dose: 2.5 mg Methylprednisolone Sodium Succinate (Solu-Medrol) 40 mg IVP 0800,2000 [facility] Last Admin: 05/13/18 08:50 Dose: 40 mg Nicotine (Nicoderm Patch) 14 mg TD 0600 [facility] Last Admin: 05/13/18 05:42 Dose: Not Given Nitroglycerin (Nitro-Bid 2% Ointment) 0.5 inch TOP Q8HR [facility] Last Admin: 05/13/18 13:00 Dose: 0.5 inch Nitroglycerin (Nitrostat) 0.4 mg SL Q5MIN PRN PRN Reason: Chest Pain Ondansetron HCl (Zofran Odt) 4 mg PO Q6H PRN PRN Reason: Nausea/Vomiting Ondansetron HCl (Zofran) 4 mg IVP Q6H PRN PRN Reason: Nausea/Vomiting Sodium Chloride (Flush - Normal Saline) 10 ml IVF Q12HR [facility] Last Admin: 05/13/18 08:53 Dose: 10 ml Sodium Chloride (Flush - Normal Saline) 10 ml IVF PRN PRN PRN Reason: Saline Flush Last Admin: 05/12/18 06:11 Dose: 10 ml Tramadol HCl (Ultram) 50 mg PO Q6H PRN PRN Reason: Moderate Pain (4-6)
[2018-05-13 16:13] VITALS: BP 107/62; TEMP 98.4
--- NOTE | 2018-05-13 16:22 | PRG ---
DATE OF SERVICE: 05/13/2018 SUBJECTIVE: Bernardino Cowan is in no distress. He is having a LifeVest fitted. PHYSICAL EXAMINATION: VITAL SIGNS: Stable. LUNGS: Clear. HEART: Regular rhythm. ABDOMEN: Soft. IMPRESSION: Cardiomyopathy, status post myocardial infarction. He needs to see me in 4-6 weeks. At that time, we will repeat a chest radiograph. At that time, would also recommend pulmonary function test. He sounds like he really is committed to not smoking and drinking after he leaves the hospital. I del rosario ve explained to him that he just cannot do this anymore if he wants to get further down the road. Hi s is in the room as well and I answered all of her questions. I will see him in 4-6 weeks.
--- NOTE | 2018-05-13 23:39 | DIS ---
DATE OF ADMISSION: 05/11/2018 DATE OF DISCHARGE: 05/13/2018 CONDITION AT THE TIME OF DISCHARGE: Stable and improved. DISCHARGE DISPOSITION: Home. PRIMARY CARE PHYSICIAN: Dr. Jalen Davies. DISCHARGE DIAGNOSES: 1. New diagnosis of acute on chronic systolic congestive heart failure, NYHA class 3. 2. Non-ST elevation myocardial infarction. 3. Hyponatremia secondary to beer potomania versus congestive heart failure suspected chronic. 4. Chronic obstructive pulmonary disease suspected. 5. Chronic alcohol abuse. 6. Chronic tobacco abuse. 7. Cardiomyopathy, likely ischemic, with EF of 10%-15%. 8. Hypertension. 9. Dyslipidemia. INHOUSE CONSULTATIONS: 1. Cardiology, Dr. Valencia. 2. Pulmonary Medicine, Dr. Shay. PROCEDURES DONE IN THE HOSPITAL: 1. Transthoracic echocardiogram, which shows EF of 15%-20% with anterior septum and apical akinesis with left atrial dilatation and moderate tricuspid regurgitation. 2. Cardiac catheterization which shows almost complete akinesis of the anterior wall with suspected large anterior GA. LAD subtotal in the proximal and mid area and heavy calcification and atheroscler osis was present. RCA leftward with 30%-50% stenosis. 3. Fitting of the LifeVest. DISCHARGE MEDICATIONS: New medications; aspirin 81 mg daily, Medrol Dosepak, sublingual nitroglyceri n as needed for chest pain, nicotine patch 14 mg daily, nebulizers, DuoNebs q.4 hourly p.r.n., lisino pril 2.5 mg daily, Lasix 40 mg daily, Plavix 75 mg daily, Coreg 1.566 mg p.o. b.i.d., Lipitor 40 mg d aily, aspirin 325 mg daily, Augmentin 875 p.o. b.i.d. for 5 days and resume Celexa 20 mg daily. HOSPITAL COURSE: Mr. Cowan is a very pleasant 68-year-old male with known history of hypertension an d dyslipidemia who was a heavy smoker and heavy alcoholic, presented to the emergency room with compl aints of chest pain. He has not sought medical attention in multiple years. Upon presentation, he w as found to have non-ST elevation myocardial infarction with cardiac enzyme elevation. Troponin of 6 .235. BNP of 2196. Chest x-ray was consistent with bilateral pleural effusion and edema. He was ad mitted with a presumptive diagnosis of non-ST elevation GA and acute CHF. Diuresis was started. Cesar enox b.i.d. along with aspirin, Plavix, and beta vladimir and JESSICA inhibitor and statin were started ti me. Nebulizers were started. Empiric antibiotics were started. Cardiology and Pulmonary Medicine w ere consulted. Please see admission history and physical for further details. HOSPITAL COURSE: The patient had improvement in his symptoms of medical intervention and underwent e cho and cardiac catheterization. He was found to have severe cardiomyopathy, likely ischemic in natu re with complete and akinesis of the anterior wall and suspected a large anterior GA about few days a go. He was not amenable to any stenting or any bypass surgery. He will be medically managed. LifeV est was arranged by Cardiology. He was tapered off of his antibiotics and IV steroids and he will follow up with Dr. Shay in the out patient setting who saw him in the hospital for possible COPD with extensive tobacco abuse history. The patient was extensively counseled against tobacco and alcohol and he is very receptive. Otherwise, he remained hemodynamically stable with an uneventful hospital course. He was started on multiple new medications and they were adjusted based on his blood pressure and heart rate response a s above. He will follow up with cardiac rehabilitation, Cardiology and Pulmonary Medicine in the out patient setting. He was seen and examined prior to discharge and LifeVest has been fitted. Please s ee hospitalist progress note from today's date for further detail including [id number] interaction. Discharge plan was discussed with the patient who verbalized understanding. Total time spent 35 minutes.
== END 2018-05-13 17:54 | disposition home or self-care (01) | DRG 280 ==
LOC: ERS 00:42 → IMCU/EMU 01:58 → 2NO 05-12 20:36
PROVIDERS: ADMIT Internal Medicine; ATTEND Internal Medicine
PROC: 4A023N7 Measurement of Cardiac Sampling and Pressure, Left Heart, Percutaneous Approach (ICD-10-PCS; principal; 2018-05-11)
PROC: B2111ZZ Fluoroscopy of Multiple Coronary Arteries using Low Osmolar Contrast (ICD-10-PCS; 2018-05-11)
DX: I22.2 Subsequent non-ST elevation (NSTEMI) myocardial infarction (principal); I50.21 Acute systolic (congestive) heart failure; E87.1 Hypo-osmolality and hyponatremia; I21.9 Acute myocardial infarction, unspecified; F17.290 Nicotine dependence, other tobacco product, uncomplicated; I11.0 Hypertensive heart disease with heart failure; J44.9 Chronic obstructive pulmonary disease, unspecified; I25.5 Ischemic cardiomyopathy; E78.5 Hyperlipidemia, unspecified; F10.10 Alcohol abuse, uncomplicated; E11.9 Type 2 diabetes mellitus without complications; E87.5 Hyperkalemia
CPT/HCPCS: 36415; 36416; 71045; 80048; 80053; 80061; 82553; 83036; 83605; 83735; 83880; 84443; 84484; 85025; 87040; 87149; 93005; 93306; 93458; 93798; 94640; 94760; 96365; 96368; 96372; 96375; C1769; J0456; J0696; J1644; J1650; J1940; J2001; J2920; J2930; J7050; J7611; J7620

== ENCOUNTER 2018-06-03 20:57 | Emergency (ER) | payer MEDICARE ==
--- NOTE | 2018-06-03 21:41 | RAD ---
ONE VIEW CHEST: HISTORY: Past medical history of ventilator dependent patient. COMPARISON: 05/12/2018 FINDINGS: Persistent cardiomegaly and pulmonary vascular prominence. Persistent prominence of the interstitium . Small right-sided effusion is suspected. No pneumothorax or osseous abnormalities. IMPRESSION: Congestive heart failure. POS: LANDRY
[2018-06-03] MEDS ORDERED: Nitroglycerin 2% Ointment 1 INCH/1 GM Packet ONE (21:50)
[2018-06-03] MEDS ORDERED: Furosemide 40 MG/4 ML VIAL ONE (21:50)
[2018-06-03 22:05] LABS: #Basophils 0.1 thou/uL (0.0-0.2); #Eosinphils 0.2 thou/uL (0.0-0.7); #Lymphocytes 1.7 thou/uL (1.20-3.40); #Monocytes 0.7 thou/uL (0.11-0.59); #Neutrophils 3.6 thou/uL (1.40-6.50); %Basophils 1.5 % (0.0-1.0); %Eosinophils 3.7 % (0.0-10.0); %Lymphocytes 26.3 % (21.0-51.0); %Monocytes 11.5 % (0.0-10.0); Hemoglobin 12.9 g/dL (14.0-18.0); Mean Corpuscular HGB CONC 34.3 g/dL (32.0-36.0); Mean Corpuscular Hemoglobin 32.7 pg (27.0-31.0); Mean Corpuscular Volume 95.3 fL (78.0-98.0); Mean Platelet Volume 7.8 fL (7.4-10.4); Platelet Count 189 thou/uL (130-400); RBC Distribution Width 11.4 % (11.5-14.5); Red Blood Cell (RBC) Count 3.95 mill/uL (4.70-6.10); White Blood Cell (WBC) Count 6.3 thou/uL (4.8-10.8)
[2018-06-03 22:26] LABS: ALT (SGPT) 18 U/L (8-55); AST (SGOT) 16 U/L (5-34); Albumin 3.8 g/dL (3.4-4.8); Alkaline Phosphatase 108 U/L (40-150); Anion Gap 13 mmol/L (10-20); BUN (Urea Nitrogen) 15 mg/dL (8.4-25.7); Bilirubin, Total 0.5 mg/dL (0.2-1.2); CK (CPK) 97 U/L (30-200); Calc. Creatinine Clearance 0 mL/min (70-130); Carbon Dioxide 25 mmol/L (23-31); Chloride 97 mmol/L (98-107); Estimated GFR-MDRD 88; Globulin 3.1 g/dL (2.4-3.5); Glucose 116 mg/dL (80-115); Potassium 3.8 mmol/L (3.5-5.1); Protein, Total 6.9 g/dL (5.8-8.1); Sodium 131 mmol/L (136-145)
[2018-06-03 22:30] LABS: CKMB 2.1 ng/mL (0-6.6); Troponin I 0.217 ng/mL (< 0.028)
[2018-06-04 00:41] LABS: Troponin I 0.226 ng/mL (< 0.028)
== END 2018-06-04 01:00 | disposition home or self-care (01) ==
LOC: ERS 20:57
DX: I11.0 Hypertensive heart disease with heart failure (principal); I50.9 Heart failure, unspecified; E78.5 Hyperlipidemia, unspecified; F41.9 Anxiety disorder, unspecified; F17.220 Nicotine dependence, chewing tobacco, uncomplicated
CPT/HCPCS: 36415; 71045; 80053; 82553; 83880; 84484; 85025; 93005; 96374; J1940

== ENCOUNTER 2018-11-13 07:09 | Inpatient (IN) | payer MEDICARE, SELFPAY ==
[2018-11-13 07:29] LABS: #Eosinphils 0.1 thou/uL (0.0-0.7); #Lymphocytes 0.9 thou/uL (1.20-3.40); #Monocytes 0.4 thou/uL (0.11-0.59); #Neutrophils 1.9 thou/uL (1.40-6.50); %Eosinophils 3.2 % (0.0-10.0); %Lymphocytes 27.7 % (21.0-51.0); %Monocytes 11.6 % (0.0-10.0); %Neutrophils 56.5 % (42.0-75.0); Mean Corpuscular HGB CONC 35.5 g/dL (32.0-36.0); Mean Corpuscular Hemoglobin 32.1 pg (27.0-31.0); Mean Corpuscular Volume 90.2 fL (78.0-98.0); Mean Platelet Volume 7.4 fL (7.4-10.4); Platelet Count 191 thou/uL (130-400); RBC Distribution Width 12.1 % (11.5-14.5); Red Blood Cell (RBC) Count 3.44 mill/uL (4.70-6.10); White Blood Cell (WBC) Count 3.3 thou/uL (4.8-10.8)
[2018-11-13 07:41] LABS: INR-International Normal Ratio 1.2; PTT 31.2 SEC (22.9-36.1); Prothrombin Time 15.3 SEC (12.0-14.7)
[2018-11-13 07:54] LABS: ALT (SGPT) 9 U/L (8-55); AST (SGOT) 12 U/L (5-34); Albumin 3.2 g/dL (3.4-4.8); Alkaline Phosphatase 80 U/L (40-150); Anion Gap 9 mmol/L (10-20); BUN (Urea Nitrogen) 6 mg/dL (8.4-25.7); Bilirubin, Total 0.8 mg/dL (0.2-1.2); Calc. Creatinine Clearance 0 mL/min (70-130); Calcium 7.6 mg/dL (7.8-10.44); Carbon Dioxide 24 mmol/L (23-31); Chloride 101 mmol/L (98-107); Estimated GFR-MDRD Greater than 90; Globulin 2.2 g/dL (2.4-3.5); Glucose 101 mg/dL (80-115); Potassium 3.3 mmol/L (3.5-5.1); Protein, Total 5.4 g/dL (5.8-8.1); Sodium 131 mmol/L (136-145)
--- NOTE | 2018-11-13 07:55 | CT ---
CT brain. HISTORY: Altered mental status. Comparison made to previous exam from 07/26/2009. Noncontrast enhanced images of the brain demonstrate the brain to be unremarkable. No evidence of int racranial masses, hemorrhages or strokes seen. Ventricles are of normal size. A large amount of soft tissue thickening and fullness seen in the oral and nasopharynx. The patient has been intubated. IMPRESSION: No evidence of acute intracranial abnormality seen.
[2018-11-13 08:07] LABS: Bilirubin Negative (Negative); Blood, Urine Negative (Negative); Clarity CLEAR (Clear); Glucose, Urine (Dipstick) Negative (Negative); Leukocyte Negative (Negative); Nitrite Negative (Negative); Protein, Urine (Dipstick) Trace mg/dL (Neg-Trace); Specific Gravity, Urine 1.009 (1.002-1.036); Urobilinogen 0.2 mg/dL (0.2-1.0); pH, Urine 6.5 (5.0-9.0)
--- NOTE | 2018-11-13 08:16 | RAD ---
AP view chest. HISTORY: Unresponsiveness altered mental status. AP view chest obtained on 11/13/2018. Comparison made to previous exam from 06/03/2018. AP view chest demonstrates intubation of the patient. NG tube is in good position. Cardiomegaly seen. Mild pulmonary vascular congestion seen. No evidence of effusions, pneumonia or pneumothorax seen. IMPRESSION: Cardiomegaly and pulmonary vascular congestion.
[2018-11-13 08:17] LABS: CKMB 1.2 ng/mL (0-6.6)
[2018-11-13 08:19] LABS: Actual Bicarbonate (HCO3a) 22.8 mEq/L (22-28); Analyzer IN Cardio ER; CO2 Tension 39.5 mmHg (35.0-45.0); Calcium, Ionized 1.12 mmol/L (1.12-1.30); Carboxyhemoglobin (COHb) 0.3 gm% (0.0-3.0); Hemoglobin (Hb) 12.5 g/dL (14.0-18.0); O2 Tension (PaO2) 97.9 mmHg (> 80.0); pH, Arterial 7.38 (7.35-7.45)
[2018-11-13 08:27] LABS: ALV-art Gradient 66.625 (0-20); Puncture Site RRA
[2018-11-13 08:53] LABS: Amphetamine Not Detected (NotDetected); Barbiturates Screen Not Detected (NotDetected); Benzodiazepine Screen Detected (NotDetected); Cocaine Metabolite Screen Not Detected (NotDetected); Medtox Control Line Valid? VALID (VALID); Medtox Reader # READER 1; Methadone Not Detected (NotDetected); Methamphetamine Not Detected (NotDetected); Opiate Screen Not Detected (NotDetected); Phencyclidine (PCP) Not Detected (NotDetected); THC/Cannabinoid Screen Not Detected (NotDetected); Tricyclic Screen Not Detected (NotDetected)
[2018-11-13 08:54] LABS: Oxycodone Screen Not Detected (NotDetected)
[2018-11-13] MEDS ORDERED: Propofol 1,000 MG/100 ML VIAL IV ONE (08:54)
[2018-11-13] MEDS ORDERED: Enoxaparin Sodium 60 MG/0.6 ML SYRINGE ONE (08:55)
[2018-11-13] MEDS ORDERED: Aspirin 300 MG Suppository ONE (08:55)
[2018-11-13] MEDS ORDERED: Enoxaparin Sodium 30 MG/0.3 ML SYRINGE ONE (08:55)
[2018-11-13 08:59] LABS: Acetaminophen Less than 6.0 mcg/mL (10.0-30.0); Alcohol 20 mg/dL (Less than 10); Salicylate Less than 8.0 mg/dL (15.0-30.0)
[2018-11-13] MEDS ORDERED: Ondansetron PF 4 MG/2 ML Vial IVP PRN (09:00)
[2018-11-13] MEDS ORDERED: Ondansetron ODT 4 MG TAB SL PRN (09:00)
[2018-11-13] MEDS ORDERED: Sodium Chloride 0.9% 1,000 ML IV SCH (09:00)
[2018-11-13] MEDS ORDERED: CCU Electrolyte Replacement 1 EACH IVPB SCH (10:40)
[2018-11-13] MEDS ORDERED: Acetaminophen 650 MG Suppository PR PRN (10:40)
[2018-11-13] MEDS ORDERED: Propofol BOLUS 1,000 MG/100 ML VIAL IV PRN (10:44)
[2018-11-13] MEDS ORDERED: DISCONTINUE PREVIOUS NARCOTIC PAIN MEDICATIONS AND BENZODIAZEPINES FS SCH (10:44)
[2018-11-13] MEDS ORDERED: Lorazepam 2 MG/ML VIAL SLOW IVP PRN (10:44)
[2018-11-13] MEDS ORDERED: fentaNYL Citrate/PF 2,000 MCG in Sodium Chloride 0.9% 60 ML IV SCH (10:44)
[2018-11-13] MEDS ORDERED: Fentanyl BOLUS 250 ML IVPB PRN (10:44)
[2018-11-13] MEDS ORDERED: Propofol 1,000 MG/100 ML VIAL IV PRN (10:44)
[2018-11-13] MEDS ORDERED: Morphine 2 MG/ML SYRINGE SLOW IVP PRN (10:44)
[2018-11-13] MEDS: Sodium Chloride 0.9% 1,000 ML IV SCH (11:00)
[2018-11-13] MEDS ORDERED: Potassium Chloride 40 MEQ in Sodium Chloride 0.9% 250 ML 250 ML IVPB PRN (11:12)
[2018-11-13] MEDS ORDERED: CCU ELECTROLYTE REPLACEMENT PROTOCOL FS PRN (11:12)
[2018-11-13] MEDS ORDERED: Potassium Chloride 20 MEQ TAB PO PRN (11:12)
[2018-11-13] MEDS ORDERED: Magnesium Oxide 400 MG TAB PO PRN ×2 (11:12)
[2018-11-13] MEDS ORDERED: PHOS-NAK 1 PKT PACK PO PRN ×2 (11:12)
[2018-11-13] MEDS ORDERED: Magnesium 2 GM/50 ML 2 GM in Premix Bag 1 BAG IVPB PRN (11:12)
[2018-11-13] MEDS ORDERED: Potassium Phosphate 9 MMOL in Sodium Chloride 0.9% 100 ML IVPB PRN (11:12)
[2018-11-13] MEDS ORDERED: Potassium Chloride 40 MEQ in Premix Bag 1 BAG IVPB PRN (11:12)
[2018-11-13] MEDS ORDERED: Potassium Phosphate 12 MMOL in Sodium Chloride 0.9% 250 ML 250 ML IV PRN (11:12)
[2018-11-13] MEDS ORDERED: Potassium Phosphate 15 MMOL in Sodium Chloride 0.9% 250 ML 250 ML IV PRN (11:12)
[2018-11-13 11:14] LABS: Magnesium 1.5 mg/dL (1.6-2.6); Phosphorus 3.4 mg/dL (2.3-4.7)
[2018-11-13 11:20] LABS: Troponin I 0.102 ng/mL (< 0.028)
--- NOTE | 2018-11-13 11:51 | HP ---
CHIEF COMPLAINT: Found unresponsive. HISTORY OF PRESENT ILLNESS: This is a 68-year-old male with history of severe ischemic cardiomyopathy with an EF estimated at 15% to 20% during last hospitalization in May 2018, COPD, chronic alcohol and tobacco use, history of MA and systolic congestive heart failure class 3, who presents to the emergency room due to being found unresponsive. All history is obtained from the emergency room physician as family is currently unavailable. Dr. Leger reports that the patient was found outside unresponsive, and in the emergency room, there was concern for protecting his airway, at which point he was intubated. The details of what happened are unknown, by report the patient does have a prescription for Xanax, and urine drug screen shows benzodiazepines and alcohol level is 20. In the emergency room, the patient received etomidate 20 mg IV, rocuronium 100 mg IV, normal saline 500 mL, Diprivan, Lovenox 1 mg/kg, aspirin 650 mg rectal. PAST MEDICAL HISTORY: 1. Ischemic cardiomyopathy, last evaluated in the inpatient setting in May 2018. 2. Chronic systolic congestive heart failure with an EF estimated at 15% to 20% , [place] Heart Association class 3. 3. History of NSTEMI. 4. COPD. 5. Chronic alcohol and tobacco use. 6. Hypertension. 7. Dyslipidemia. PAST SURGICAL HISTORY: Based on chart review from May 11, 2018 is negative. SOCIAL HISTORY: Based on chart review, the patient lives with his . At that time was a chronic drinker with more than 10 drinks per day, but had quit 10 days prior to the hospitalization. Also history of tobacco use. REVIEW OF SYSTEMS: Unobtainable. FAMILY HISTORY: Unobtainable. ALLERGIES: PER CHART REVIEW, NEGATIVE. MEDICATIONS: Per last discharge summary are; 1. Aspirin 81 mg daily. 2. DuoNebs every 4 hours as needed. 3. Lisinopril 2.5 mg daily. 4. Lasix 40 mg daily. 5. Plavix 75 mg daily. 6. Coreg 3.125 mg b.i.d. 7. Lipitor 40 mg daily. 8. Aspirin 325 mg daily. 9. Celexa 20 mg daily. PHYSICAL EXAMINATION: VITAL SIGNS: Blood pressure 127/79, pulse 79 in the emergency room, and saturation was 100% with bag valve mask. GENERAL: The patient is intubated and sedated. Does respond some to suctioning of oral secretions. NECK: Supple and nontender. LYMPHATICS: No palpable cervical or supraclavicular lymphadenopathy. LUNGS: Clear to auscultation bilateral. No audible wheezing, rhonchi, or rales. HEART: Normal S1, S2. Regular rate and rhythm. No significant murmurs. ABDOMEN: Soft with present bowel sounds. Nondistended. EXTREMITIES: No pitting edema. VASCULAR: 2+ dorsalis pedis pulses. NEURO: Unable to adequately assess. PSYCH: Unable to adequately assess. SKIN: No visible rashes. LABORATORY DATA: Reviewed. CBC: 3.3, 11.0, 31.1, 191. Chemistry: 131, 3.3, 101, 24, 6, 0.7, 101. Calcium 7.6. T bilirubin 0.8, AST 12, ALT 9, alkaline phosphatase 80, total protein 5.4, albumin 3.2. Troponin 0.08, BNP 410, CK-MB 1.2. Urine is normal. Urine drug screen shows present benzodiazepine and plasma alcohol of 20, negative acetaminophen and salicylates. EKG, personally reviewed, normal axis, MD interval of 214, QT corrected 488, abnormal R-wave progression, and inverted T-waves. Brain CT personally reviewed, negative. Chest x-ray personally reviewed, shows cardiomegaly and pulmonary vascular congestion. IMPRESSION: 1. Found unresponsive, unable to protect his airway with present alcohol and benzodiazepine, unknown circumstances surrounding this. The patient is intubated and stable. 2. History of ischemic cardiomyopathy, systolic congestive heart failure with EF estimated at 15% to 20% by echo, at risk of arrhythmia. 3. Prolonged QT interval. 4. Hypertension, unknown control. 5. Dyslipidemia. 6. History of chronic alcohol and tobacco use. PLAN: 1. Consultation with Dr. Leyva, management of the vent. 2. Cardiology consultation. We will repeat echocardiogram to look for any significant change, monitor on telemetry and maintain his usual beta vladimir therapy, statin, and low-dose JESSICA inhibitor. Interrogate life vest and trend troponins. 3. Given the full-dose Lovenox, we will continue low dose aspirin. We will hold Plavix for now, await opinion of Cardiology. 4. Gentle IV fluids with the goal of avoiding volume overload given his known low EF. 5. Avoid medications that can prolong the QT interval. 6. DVT prophylaxis. He is fully anticoagulated. 7. GI prophylaxis. We will use IV famotidine. 8. Code status is presumed full. Conversation will need to take place with the patient's family for clarification. 9. The patient is at high risk and significant risk given age, comorbidities, and current presentation. Addendum after the above dictation - history obtained from patient's later in the day. She reports he has been depressed, they are under financial strain and at risk of losing their home. She reports he told her he could take too much of his xanax to end his life earlier in the week. She carries his medication, did not ever think he would intentionally harm himself, and she was unable to find the bottle earlier today. She states he has been physically doing well, working his usual job. He restarted drinking 8 beers per night in July, and last night had 14 beers. She has not witnessed any f/c/n/v/ swelling in his legs/shocks from the external defibrillator. He has an appointment for insertion of defibrillator on November [address] Voss. She found him this morning sitting and mumbling, incoherent, and 911 was called. Job ID: [id number] MTDD
[2018-11-13 12:02] VITALS: BMI 25.0
--- NOTE | 2018-11-13 12:02 | CON ---
DATE OF CONSULTATION: HISTORY OF PRESENT ILLNESS: Bernardino Cowan is a 68-year-old gentleman, who has been in this hospital before. He has had cardiomyopathy. Last EF was 20%. History, he says that he was found down at home by his . Apparently, he has history of heavy alcohol intake. He smokes. Drinks up to 10 beers as per the history. His blood pressure was 88/40 when he arrived. He has some ST-segment changes on the EKG. He was intubated. He is now in the ICU. Alcohol is apparently up to 10 drinks a day. Smokes. He has seen Dr. Shay in office in the past. PAST MEDICAL HISTORY: Additional past medical history, congestive cardiomyopathy, he has a LifeVest. High cholesterol and hyperlipidemia. PAST SURGICAL HISTORY: Previous surgery is finger surgery. Otherwise, no other surgical procedures to speak off. MEDICATIONS: His home medicines presumably has included; 1. Zestril 2.5. 2. Nebulizer. 3. Plavix 75. 4. Celexa 20. 5. Coreg twice a day. 6. Lipitor 40. 7. Aspirin. is to bring a current list. ALLERGIES: NONE. SOCIAL AND FAMILY HISTORY: Otherwise unobtainable. REVIEW OF SYSTEMS: Negative. PHYSICAL EXAMINATION: VITAL SIGNS: Pulse 77, blood pressure 120/80, and saturations 100%, respiratory rate 14. He is on Diprivan. CHEST: Decreased breath sounds. No wheezing. CARDIAC: Normal S1 and S2. No gallops. ABDOMEN: Soft. No masses. LABORATORY DATA: White count 3000, H and H 11 and 33, and platelet count is normal. INR is normal. His lytes show sodium 131 and potassium 3.3. BNP is 410. CT head was done, which was negative. IMPRESSION: 1. Status post encephalopathy. 2. Hypertension. 3. Cardiomyopathy. 4. Alcohol abuse. 5. Tobacco abuse. 6. Electrolyte imbalance. PLAN: Labs been ordered; cortisone, magnesium, and phosphorus. Continue vent support. Continue present neb treatments. We will notify Dr. Shay. Wean when stable. Await input from Cardiology. This is a 45-minute critical care time. Job ID: [id number]
[2018-11-13 14:20] LABS: Troponin I 0.092 ng/mL (< 0.028)
--- NOTE | 2018-11-13 15:40 | CON ---
DATE OF CONSULTATION: 11/13/2018 INDICATION FOR CONSULTATION: A 68-year-old gentleman, with a history of cardiomyopathy, found unresponsive. HISTORY OF PRESENT ILLNESS: This very unfortunate 68-year-old gentleman, was seen by me back in April of 2018, was found to have severe decrease in left ventricular systolic function, ejection fraction 10% to 15%. This was felt to be due to possible alcohol use and alcoholic cardiomyopathy. He was treated medically. He was sent home with a LifeVest. He switched to Dr. Lopez, who now takes care of his cardiac problems. His ejection fraction has continued to be significantly decreased. He did have an echocardiogram at the end of July and this according to the family was still significantly decreased. He was scheduled to undergo an AICD implant in the interim. He has been having financial problems at home and had talked to his about committing suicide and also suggested she do the same since they could not pay the house payments. He had been on Xanax in the past, but had not been taken for the last couple of years. The states she kept the Xanax in her handbag in a bottle.This morning, he apparently got up early, went outside around 6 o'clock, when she did not hear him come back, she went to look for him. He was slumped over next to the steps and was unresponsive. He did not stop breathing according to the . He was brought to the emergency room. She believes that he took all Xanax and now she cannot find the bottle with the Xanax . He may have intentionally taken an overdose of his Xanax and his drug screen was positive for benzodiazepines. Also, previously he was drinking alcohol heavily, and unfortunately he never stopped . Once he left the hospital, he was still drinking up to eight beers a day but yesterday due to stress, he actually went to the store, bought more beer and drank about 14 beers last night and apparently this AM took the Xanax. At this time, he is on the ventilator. Otherwise, he appears to be relatively stable. He has also been given propofol. His said that he had been doing much better. He actually said himself, he thought his heart was getting better and was questioning whether or not he would undergo the defibrillator was felt that he thought that perhaps he should have another echocardiogram prior to proceeding with the defibrillator. He denied any chest pain. His cardiac catheterization was performed in April , the ejection fraction was 10% to 15%. He had a subtotally occluded left anterior descending artery with anterior wall akinesis. He had a 30% right coronary artery proximal stenosis and a 30% left circumflex stenosis, I believe the proximal LAD was at 99% occluded, but was not completely occluded. It was felt that he most likely has suffered an old anterior myocardial infarction. Given the basis of that, it is unlikely the ejection fraction is going to improve. PAST MEDICAL HISTORY: Significant for the coronary artery disease, cardiomyopathy, type 2 diabetes, hypertension, dyslipidemia, and mild peripheral vascular disease. FAMILY HISTORY: Noncontributory. ALLERGIES: NONE. MEDICATIONS: His medications prior to admission should have included; 1. Aspirin. 2. Lisinopril 2.5 mg a day. 3. Lasix. 4. Plavix. 5. Coreg. 6. Lipitor. 7. Celexa. 8. DuoNeb. I will try to review the records from the office and see whether or not Dr. Lopez has adjusted his medications on the last visit, which would be back in August. REVIEW OF SYSTEMS: Unobtainable. The , who is at the bedside says that he has been doing quite well. Did not have any recent complaints. PHYSICAL EXAMINATION: GENERAL: Reveals an elderly gentleman, who is on the ventilator. He is intubated. He is sedated with propofol at this time. VITAL SIGNS: His blood pressure was originally about 80/60. However, when the patient was placed in Trendelenburg, blood pressure was 120/78, heart rate is in the 70s, respiratory rate 14, and O2 saturations 100%. HEENT: Reveals head to be normocephalic and atraumatic. Carotid pulses are present. I did not hear any significant bruits. CHEST: Clear to auscultation without rales, rhonchi, or wheezing. CARDIOVASCULAR: Regular rhythm with normal S1 and S2. I do not hear an S3 or an S4. There were no significant murmurs, heaves, thrills, bruits, or rubs. GI: Abdominal exam is soft and nontender. Positive bowel sounds are present. EXTREMITIES: Showed no clubbing, cyanosis, or edema. Pedal pulses are present. NEUROLOGIC: The patient is sedated on the ventilator. SKIN: Warm and dry. DIAGNOSTIC DATA: His EKG shows a sinus rhythm with evidence of old anterior myocardial infarction with continued ST-T wave changes. Otherwise, there were no acute ST-segment changes noted otherwise. He has what appears to be an ectopic atrial rhythm with an inverted P waves in some of the leads. LABORATORY DATA: As noted, he was positive for benzodiazepine as well as alcohol. His hemoglobin was 11.0 with a WBC of 3.3. Sodium was 131, BUN was 6 with a creatinine of 0.7, and blood sugar was 101. Cardiac enzymes were slightly elevated at 0.08 and then increased up to 0.1. BNP was 410. INR is 1.2. Alcohol level was 20. IMPRESSION AND PLAN: 1. A 68-year-old gentleman with a history of cardiomyopathy, severe decrease in left ventricular systolic function, who was scheduled in the near future to undergo an automatic implantable cardioverter-defibrillator implant after he was found to have a cardiomyopathy end of April 2018, and has history of severe coronary artery disease and most likely suffered a silent myocardial infarction prior to his admission in April.. 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 He continues to drink unfortunately. We will repeat the echocardiogram for better evaluation of ejection fraction at this time. However , it is unlikely that would have improved. 2. History of alcohol and drug and benzodiazepine use with possible attempted suicide. He will need to be seen by [facility], once he is out of the hospital and further discussion will be concerning his congestive heart failure also with his continued alcohol use and benzodiazepines. 3. History of alcohol use. This will need to be addressed in this patient. He most likely will have to get some benefit from counseling. 4. History of hyponatremia. He continues to have hyponatremia. Sodium is 131. Further care of the patient will be by Dr. Lopez when he reviews the echocardiogram and visits with the patient tomorrow and to whether or not he has had any anoxic brain injury after he was found unresponsive by the family. Job ID: [id number] [facility]
[2018-11-13] MEDS: Carvedilol 3.125 MG TAB PO SCH (17:58)
[2018-11-13] MEDS: Enoxaparin Sodium 100 MG/ML SYRINGE SC SCH (19:55)
[2018-11-13] MEDS: Famotidine/PF 20 mg/2ml Vial SLOW IVP SCH (19:55)
[2018-11-13] MEDS: Atorvastatin Calcium 40 MG TAB PO SCH (19:55)
[2018-11-14] MEDS: Sodium Chloride 0.9% 1,000 ML IV SCH (04:34)
[2018-11-14 05:37] LABS: Hypochromia SLIGHT = 6-15 cells (100X) (0-5/hpf); Lymphocytes 12 % (21-51); MDiff Complete? YES; Mean Corpuscular HGB CONC 34.1 g/dL (32.0-36.0); Mean Corpuscular Hemoglobin 31.2 pg (27.0-31.0); Mean Corpuscular Volume 91.7 fL (78.0-98.0); Mean Platelet Volume 7.8 fL (7.4-10.4); Monocytes 3 % (0-10); Neutrophil 84 % (42-75); Platelet Count 187 thou/uL (130-400); Platelet Morphology Comment Appears Adequate; RBC Distribution Width 12.5 % (11.5-14.5); Reactive Lymphocytes 1 % (0-10); Red Blood Cell (RBC) Count 3.85 mill/uL (4.70-6.10); White Blood Cell (WBC) Count 7.3 thou/uL (4.8-10.8)
[2018-11-14 05:38] LABS: ALT (SGPT) 9 U/L (8-55); AST (SGOT) 13 U/L (5-34); Albumin 3.5 g/dL (3.4-4.8); Alkaline Phosphatase 86 U/L (40-150); Anion Gap 10 mmol/L (10-20); BUN (Urea Nitrogen) 7 mg/dL (8.4-25.7); Bilirubin, Total 0.9 mg/dL (0.2-1.2); Calc. Creatinine Clearance 119 mL/min (70-130); Calcium 8.6 mg/dL (7.8-10.44); Carbon Dioxide 25 mmol/L (23-31); Chloride 106 mmol/L (98-107); Estimated GFR-MDRD Greater than 90; Globulin 2.5 g/dL (2.4-3.5); Glucose 100 mg/dL (80-115); Potassium 3.9 mmol/L (3.5-5.1); Sodium 137 mmol/L (136-145)
[2018-11-14 06:59] LABS: Actual Bicarbonate (HCO3a) 25.4 mEq/L (22-28); Base Excess (BEa) 1.4 mEq/L (-2.0 to +3.0); CO2 Tension 38.4 mmHg (35.0-45.0); Carboxyhemoglobin (COHb) 1.1 gm% (0.0-3.0); Hemoglobin (Hb) 12.6 g/dL (14.0-18.0); Potassium - ABG Lab 3.88 mmol/L (3.70-5.30); pH, Arterial 7.44 (7.35-7.45)
[2018-11-14 07:00] LABS: Puncture Site RB
--- NOTE | 2018-11-14 07:51 | RAD ---
Chest one view HISTORY: Dyspnea. Follow-up. COMPARISON: 11/13/2018. FINDINGS: Cardiac silhouette is magnified by projection. Pulmonary vasculature are less engorged than on the prior study. Mediastinum is midline with aortic calcification. Lines and tubes appear unchanged in position. No evidence of pneumothorax. telecommunicator leads overlie the chest. IMPRESSION: Interval decrease in pulmonary vascular prominence. No new abnormalities are demonstrated .
[2018-11-14] MEDS: Carvedilol 3.125 MG TAB PO SCH ×2 (07:59→18:46)
[2018-11-14] MEDS: Enoxaparin Sodium 100 MG/ML SYRINGE SC SCH ×2 (08:46→21:30)
[2018-11-14] MEDS: Famotidine/PF 20 mg/2ml Vial SLOW IVP SCH ×2 (08:47→21:30)
[2018-11-14] MEDS: Lisinopril 2.5 MG TAB PO SCH (08:47)
[2018-11-14] MEDS: Aspirin 81 mg Enteric Coated Tablet PO SCH (08:48)
--- NOTE | 2018-11-14 12:16 | PDOC.PN ---
- Subjective Encounter Start Date: 11/14/18 Encounter Start Time: 11:30 Subjective: Patient extubated. Reports he took large amount of Xanax, states "I was -: probably trying to kill myself." One possible previous attempt years ago. -: Depressed due to financial troubles, about to lose his house, alcohol abuse - Objective Resuscitation Status - Order Detail: 11/13/18 10:40 Resuscitation Status Routine Resuscitation Status: FULL: Full Resuscitation Discussed with: Currently intubated, will need discussion with family as they are available MAR Reviewed: Yes Vital Signs & Weight: Vital Signs (12 hours) Temp Pulse Resp BP Pulse Ox 11/14/18 11:05 86 18 100 11/14/18 10:46 82 120/76 11/14/18 10:40 100 11/14/18 10:00 14 11/14/18 08:47 80 131/86 11/14/18 08:00 98.8 F 14 100 11/14/18 06:47 80 116/74 100 11/14/18 06:00 14 11/14/18 04:00 14 11/14/18 03:00 98.1 F 11/14/18 02:17 81 122/76 11/14/18 02:00 14 11/14/18 00:18 86 14 100 Weight Weight 193 lb 9.054 oz Most Recent Monitor Data Heart Rate from ECG 84 NIBP 125/79 NIBP BP-Mean 94 Respiration from ECG 22 SpO2 100 I&O: 11/13/18 11/14/18 11/15/18 06:59 06:59 06:59 Intake Total 1496 255 Output Total 3345 500 Balance -1849 -245 Result Diagrams: 11/14/18 04:31 11/14/18 04:31 Phys Exam - Physical Examination Constitutional: NAD HEENT: moist MMs Respiratory: no wheezing, no rales, no rhonchi Cardiovascular: RRR, no significant murmur Gastrointestinal: soft, positive bowel sounds Musculoskeletal: no edema Neurological: non-focal, moves all 4 limbs Psychiatric: A&O x 3 Deviation from normal: depressed Dx/Plan (1) Acute respiratory failure with hypoxia and hypercapnia Code(s): J96.01 - ACUTE RESPIRATORY FAILURE WITH HYPOXIA; J96.02 - ACUTE RESPIRATORY FAILURE WITH HYPERCAPNIA Status: Acute Comment: extubated now, likely due to alcohol and Xanax overdose (2) Suicide attempt by benzodiazepine overdose Code(s): T42.4X2A - POISONING BY BENZODIAZEPINES, INTENTIONAL SELF-HARM, INIT Status: Suspected Comment: suicide attempt with Xanax, needs MR once medically cleared (3) Cardiomyopathy Code(s): I42.9 - CARDIOMYOPATHY, UNSPECIFIED Status: Chronic Qualifiers: Cardiomyopathy type: ischemic Qualified Code(s): I25.5 - Ischemic cardiomyopathy Comment: likley alcoholic component as well (4) Chronic CHF (congestive heart failure) Code(s): I50.9 - HEART FAILURE, UNSPECIFIED Status: Chronic Qualifiers: Heart failure type: combined systolic and diastolic Qualified Code(s): I50.42 - Chronic combined systolic (congestive) and diastolic (congestive) heart failure Comment: Stage 3 (5) Alcohol abuse Code(s): F10.10 - ALCOHOL ABUSE, UNCOMPLICATED Status: Chronic (6) DM2 (diabetes mellitus, type 2) Status: Chronic (7) HLD (hyperlipidemia) Code(s): E78.5 - HYPERLIPIDEMIA, UNSPECIFIED Status: Chronic (8) HTN (hypertension) Code(s): I10 - ESSENTIAL (PRIMARY) HYPERTENSION Status: Chronic (9) Tobacco abuse Code(s): Z72.0 - TOBACCO USE Status: Chronic (10) CAD (coronary artery disease) Code(s): I25.10 - ATHSCL HEART DISEASE OF [place] CORONARY ARTERY W/O ANG PCTRS Status: Chronic Qualifiers: Coronary Disease-Associated Artery/Lesion type: [place] artery - Plan cont current plan of care, respiratory therapy, DVT proph w/lovenox, DVT proph w /SCDs start diet, d/c hallman and attempt void * . - Discharge Day Encounter end time: 11:45
--- NOTE | 2018-11-14 14:54 | PRG ---
DATE OF SERVICE: 11/14/2018 SUBJECTIVE: Mr. Cowan is a 68-year-old male. His tells me they have been having financial problems lately. She actually became concerned about his mental health state and took the alprazolam tablets that he takes infrequently away from him and put them in her purse. She thinks he cut into her purse and took multiple Xanax tablets intentionally trying to harm himself. She found him slumped over sitting in a chair at home when he subsequently was intubated. Wednesday, he drank beer all day long, drinking a total 14 beers she said. At 7:19 yesterday morning, his plasma alcohol was 20. I suspect this is all left over from Wednesday night. Discussed the depressant affects of alcohol, not to mention the effects on his cardiomyopathy. On most days, he drinks 8 beers a day. Chest x-ray on presentation did not show congestive heart failure. When I examined him today, he was awake and alert. OBJECTIVE: VITAL SIGNS: His vital signs have been stable all night. He is afebrile. Heart rate is 110, blood pressure 102/57, respiratory rate was in the teens, and minute volume was 8 L a minute. HEAD AND NECK: Unremarkable. LUNGS: Clear. HEART: Regular rhythm. S1 and S2 are normal. ABDOMEN: Soft and nontender. EXTREMITIES: Without asymmetry or edema. LABORATORY DATA: Sodium 137, potassium 3.9, chloride 106, bicarb 25, BUN 7, and creatinine 0.76. A pH 7.3, CO2 of 12, and pO2 of 187. A pH 7.44, CO2 of 38, and pO2 of 108. IMPRESSION AND PLAN: Intentional alprazolam overdose leading to respiratory depression. He passed spontaneous breathing trial. He subsequently has been extubated. [facility] will need to be involved in his care. I have explained to his that his cardiomyopathy had nothing to do with his requirement for intubation. He probably should be seen by his director of family service center for at least few days. CRITICAL CARE TIME: 35 minutes. Job ID: [id number]
[2018-11-14] MEDS: Atorvastatin Calcium 40 MG TAB PO SCH (21:30)
[2018-11-14] MEDS: Nicotine 21 MG PATCH TOP SCH (21:38)
[2018-11-15] MEDS: Sodium Chloride 0.9% 1,000 ML IV SCH (03:45)
[2018-11-15 06:47] LABS: Band 3 % (5-11); Lymphocytes 17 % (21-51); MDiff Complete? YES; Mean Corpuscular Hemoglobin 30.4 pg (27.0-31.0); Mean Corpuscular Volume 92.2 fL (78.0-98.0); Mean Platelet Volume 7.8 fL (7.4-10.4); Monocytes 13 % (0-10); Neutrophil 60 % (42-75); Platelet Count 188 thou/uL (130-400); Platelet Morphology Comment Appears Adequate; RBC Distribution Width 12.6 % (11.5-14.5); Reactive Lymphocytes 5 % (0-10); Red Blood Cell (RBC) Count 4.28 mill/uL (4.70-6.10); White Blood Cell (WBC) Count 7.3 thou/uL (4.8-10.8)
[2018-11-15 06:56] LABS: ALT (SGPT) 11 U/L (8-55); AST (SGOT) 15 U/L (5-34); Albumin 3.9 g/dL (3.4-4.8); Alkaline Phosphatase 94 U/L (40-150); Anion Gap 12 mmol/L (10-20); BUN (Urea Nitrogen) 7 mg/dL (8.4-25.7); Bilirubin, Total 1.1 mg/dL (0.2-1.2); Calc. Creatinine Clearance 99 mL/min (70-130); Calcium 9.3 mg/dL (7.8-10.44); Carbon Dioxide 26 mmol/L (23-31); Chloride 103 mmol/L (98-107); Estimated GFR-MDRD 83; Globulin 2.9 g/dL (2.4-3.5); Glucose 125 mg/dL (80-115); Potassium 4.2 mmol/L (3.5-5.1); Protein, Total 6.8 g/dL (5.8-8.1); Sodium 137 mmol/L (136-145)
[2018-11-15] MEDS: Furosemide 40 MG TAB PO SCH (07:26)
[2018-11-15] MEDS: Carvedilol 3.125 MG TAB PO SCH ×4 (07:26→20:21)
--- NOTE | 2018-11-15 08:46 | RAD ---
PORTABLE CHEST: History: Respiratory distress. Comparison: 11-14-18 FINDINGS: Endotracheal and NG tubes have been removed. Heart size is borderline. Chronic lung changes are seen. IMPRESSION: Interval removal of endotracheal and NG tube. Otherwise stable chest. POS: [facility]
--- NOTE | 2018-11-15 08:50 | PDOC.PN ---
- Subjective Encounter Start Date: 11/15/18 Encounter Start Time: 12:00 Subjective: Patient denies complaints. Still feeling depressed and suicidal. No SOB. -: No fever. - Objective Resuscitation Status - Order Detail: 11/13/18 10:40 Resuscitation Status Routine Resuscitation Status: FULL: Full Resuscitation Discussed with: Currently intubated, will need discussion with family as they are available MAR Reviewed: Yes Vital Signs & Weight: Vital Signs (12 hours) Temp Pulse Resp Pulse Ox 11/15/18 07:49 119 H 16 11/15/18 04:00 98.2 F 11/15/18 00:00 98.2 F 11/14/18 23:10 91 16 100 Weight Weight 193 lb 3.2 oz Most Recent Monitor Data Heart Rate from ECG 112 NIBP 151/113 NIBP BP-Mean 125 Respiration from ECG 24 SpO2 100 I&O: 11/14/18 11/15/18 11/16/18 06:59 06:59 06:59 Intake Total 1496 2436 50 Output Total 3345 2550 Balance -1849 -114 50 Result Diagrams: 11/15/18 05:56 11/15/18 05:56 Radiology Reviewed by me: Yes (CXR with chronic changes, no infiltrates) Phys Exam - Physical Examination Constitutional: NAD HEENT: moist MMs Respiratory: no wheezing, no rales, no rhonchi Cardiovascular: RRR Gastrointestinal: soft, positive bowel sounds Neurological: non-focal, moves all 4 limbs Psychiatric: A&O x 3 Deviation from normal: depressed affect Dx/Plan (1) Acute respiratory failure with hypoxia and hypercapnia Code(s): J96.01 - ACUTE RESPIRATORY FAILURE WITH HYPOXIA; J96.02 - ACUTE RESPIRATORY FAILURE WITH HYPERCAPNIA Status: Acute Comment: extubated now, likely due to alcohol and Xanax overdose (2) Suicide attempt by benzodiazepine overdose Code(s): T42.4X2A - POISONING BY BENZODIAZEPINES, INTENTIONAL SELF-HARM, INIT Status: Suspected Comment: suicide attempt with Xanax, medically cleared so ok for [facility] evaluation (3) Cardiomyopathy Code(s): I42.9 - CARDIOMYOPATHY, UNSPECIFIED Status: Chronic Qualifiers: Cardiomyopathy type: ischemic Qualified Code(s): I25.5 - Ischemic cardiomyopathy Comment: likley alcoholic component as well, plan for defibrillator placement (4) Chronic CHF (congestive heart failure) Code(s): I50.9 - HEART FAILURE, UNSPECIFIED Status: Chronic Qualifiers: Heart failure type: combined systolic and diastolic Qualified Code(s): I50.42 - Chronic combined systolic (congestive) and diastolic (congestive) heart failure Comment: Stage 3 (5) Alcohol abuse Code(s): F10.10 - ALCOHOL ABUSE, UNCOMPLICATED Status: Chronic Comment: [facility] protocol (6) DM2 (diabetes mellitus, type 2) Status: Chronic (7) HLD (hyperlipidemia) Code(s): E78.5 - HYPERLIPIDEMIA, UNSPECIFIED Status: Chronic (8) HTN (hypertension) Code(s): I10 - ESSENTIAL (PRIMARY) HYPERTENSION Status: Chronic (9) Tobacco abuse Code(s): Z72.0 - TOBACCO USE Status: Chronic (10) CAD (coronary artery disease) Code(s): I25.10 - ATHSCL HEART DISEASE OF [place] CORONARY ARTERY W/O ANG PCTRS Status: Chronic Qualifiers: Coronary Disease-Associated Artery/Lesion type: [place] artery - Plan cont current plan of care MR robert unless patient going to get defibrillator done during this -: hospitalization * . - Discharge Day Encounter end time: 12:10
[2018-11-15] MEDS ORDERED: Diazepam 5 MG TAB PO PRN (08:53)
[2018-11-15] MEDS ORDERED: Thiamine HCl 200 MG/2 ML VIAL IM SCH (09:00)
[2018-11-15] MEDS: Enoxaparin Sodium 100 MG/ML SYRINGE SC SCH ×3 (09:00→20:24)
[2018-11-15] MEDS ORDERED: Diazepam 5 MG TAB PO SCH (09:00)
[2018-11-15] MEDS: Folic Acid 1 MG TAB PO SCH ×2 (09:00→15:01)
[2018-11-15] MEDS: Famotidine/PF 20 mg/2ml Vial SLOW IVP SCH (09:00)
[2018-11-15] MEDS: Multivitamin W/ Minerals 1 TAB PO SCH ×2 (09:00→15:06)
[2018-11-15] MEDS: Lisinopril 2.5 MG TAB PO SCH ×2 (09:00→15:02)
[2018-11-15] MEDS: Aspirin 81 mg Enteric Coated Tablet PO SCH ×2 (09:00→15:06)
--- NOTE | 2018-11-15 13:27 | PRG ---
DATE OF SERVICE: 11/15/2018 I am seeing Mr. Cowan at our [facility] as an electrophysiology followup at Dr. Lopez's request. SUBJECTIVE AND HOSPITAL COURSE: Mr. Cowan is doing well today. He has been admitted for noncardiac reason - overdosed on Xanax. Currently, he denies PND , orthopnea, or lower extremity edema. No fever, chills, or cough. No stroke-like symptoms. No neurological deficits, and rest of 12-point system otherwise unremarkable. PAST MEDICAL HISTORY: Including a chronic systolic congestive heart failure with ischemic cardiomyopathy, myocardial infarction in May 2018, who had a persistent reduced LVEF. He also has some history of hyperlipidemia, COPD , and EtOH/tobacco abuse. SOCIAL HISTORY: As above. FAMILY HISTORY: Not contributory. OBJECTIVE: VITAL SIGNS: Blood pressure 132/83, heart rate 88, respirations 19. The patient is afebrile. GENERAL: Alert and oriented man, in no apparent distress. NECK: Supple. Jugular veins not distended. CHEST: Coarse with crackles. HEART: Heart sounds are regular to rate and rhythm. No murmur or gallop. ABDOMEN: Benign. Bowel sounds positive. EXTREMITIES: Lower extremity without edema, clubbing, or cyanosis. Pulses are adequate. NEUROLOGIC: The patient is nonfocal. MUSCULOSKELETAL: Without joint swelling or deformity. SKIN: Without rash. DATABASE: EKG reveals sinus rhythm with rates of 94 beats per minute, poor anterior R-wave progression, QRS duration 106 milliseconds, lateral T-wave inversions. Second EKG reveals sinus tachycardia at 113 beats per minute. Telemetry strips reveals a sinus rhythm, sinus tachycardia. No ventricular ectopy at this time. ASSESSMENT AND PLAN: Mr. Cowan is a pleasant 68-year-old man with prior history of congestive heart failure, ischemic cardiomyopathy, myocardial infarction, who has severe reduced left ventricular ejection fraction. He was recently seen in my office on the 02 of November Electrophysiology standpoint, and we planned to do an ICD as an outpatient. Now he had been admitted with above issues. As we did discuss the patient with Dr. Lopez, he clearly meets the criteria for prophylactic ICD implant. Due to his social circumstances, it would be reasonable to consider proceeding with an ICD implant earlier as planned in outpatient. Again, we discussed the procedure , risks, benefits, he understands the risk of infection, bleeding, pneumothorax, tamponade, device malfunction recall. We will proceed with the ICD implant while inpatient. Thank you again for allowing me to participate in the care of this patient. Job ID: [id number] [facility]
--- NOTE | 2018-11-15 13:39 | PRG ---
DATE OF SERVICE: 11/15/2018 SUBJECTIVE: Mr. Cowan was stable overnight postextubation. He told a friend last evening that he had a plan to do this again and he would succeed. OBJECTIVE: VITAL SIGNS: Heart rate 119, respiratory rate 16, blood pressure 151/113. All of his other blood pressures have been normal, so I suspect this is an average blood pressure. LUNGS: Clear. HEART: Regular rate and rhythm. S1 and S2, normal. ABDOMEN: Soft and nontender. EXTREMITIES: Without edema. LABORATORY DATA: White count 7.3, hemoglobin 13, platelets 188. Electrolytes are normal. BUN 7, creatinine 0.9. Liver enzymes are normal. IMPRESSION: Intentional alprazolam overdose representing a suicide attempt. He has informed a friend that he plans to do this again. He has not told his that. He is medically clear for [facility] evaluation. I would think that he may be someone, who needs more than just outpatient followup. I would suspect that he would benefit from inpatient psychiatric management even if it was involuntary. He will stay in a monitored environment because of the risks of him harming himself. Job ID: [id number]
[2018-11-15] MEDS: Atorvastatin Calcium 40 MG TAB PO SCH (20:21)
[2018-11-16] MEDS: Nicotine 21 MG PATCH TOP SCH ×3 (00:23→21:10)
[2018-11-16] MEDS: Sodium Chloride 0.9% 1,000 ML IV SCH ×2 (00:41→20:57)
[2018-11-16 05:04] LABS: Eosinophils 1 % (0-10); Hemoglobin 11.7 g/dL (14.0-18.0); Hypochromia SLIGHT = 6-15 cells (100X) (0-5/hpf); Lymphocytes 28 % (21-51); MDiff Complete? YES; Mean Corpuscular HGB CONC 32.5 g/dL (32.0-36.0); Mean Corpuscular Volume 92.4 fL (78.0-98.0); Monocytes 16 % (0-10); Neutrophil 55 % (42-75); Platelet Count 184 thou/uL (130-400); Platelet Morphology Comment Appears Adequate; RBC Distribution Width 12.6 % (11.5-14.5); White Blood Cell (WBC) Count 5.6 thou/uL (4.8-10.8)
[2018-11-16 05:11] LABS: ALT (SGPT) 9 U/L (8-55); AST (SGOT) 15 U/L (5-34); Albumin 3.5 g/dL (3.4-4.8); Alkaline Phosphatase 88 U/L (40-150); Anion Gap 11 mmol/L (10-20); BUN (Urea Nitrogen) 8 mg/dL (8.4-25.7); Bilirubin, Total 0.7 mg/dL (0.2-1.2); Calc. Creatinine Clearance 104 mL/min (70-130); Calcium 9.1 mg/dL (7.8-10.44); Carbon Dioxide 29 mmol/L (23-31); Cardiac Risk 2.7 (Less than 4.5); Chloride 105 mmol/L (98-107); Cholesterol 106 mg/dl (< 200 Desired); Estimated GFR-MDRD 88; Globulin 2.7 g/dL (2.4-3.5); Glucose 109 mg/dL (80-115); HDL Cholesterol 40 mg/dL (>60 Neg Risk); LDL Cholesterol, Calculated 53 mg/dL; Potassium 3.8 mmol/L (3.5-5.1); Protein, Total 6.2 g/dL (5.8-8.1); Sodium 141 mmol/L (136-145); Triglycerides 66 mg/dL (Less than 150)
--- NOTE | 2018-11-16 05:11 | RAD ---
XR Chest 1 View Portable HISTORY: Respiratory distress COMPARISON: 11/15/2018 study FINDINGS: Heart size is enlarged with atherosclerotic changes of aorta. The lungs show chronic change . IMPRESSION: Cardiomegaly with chronic lung change.
[2018-11-16] MEDS: Furosemide 40 MG TAB PO SCH (07:45)
[2018-11-16] MEDS ORDERED: Propofol 1,000 MG/100 ML VIAL IV ONE (07:52)
[2018-11-16] MEDS ORDERED: Fentanyl 100 MCG/2 ML VIAL ONE (07:52)
[2018-11-16] MEDS: Lisinopril 2.5 MG TAB PO SCH (09:38)
[2018-11-16] MEDS: Enoxaparin Sodium 100 MG/ML SYRINGE SC SCH (09:38)
[2018-11-16] MEDS: Carvedilol 3.125 MG TAB PO SCH ×2 (09:39→15:52)
[2018-11-16] MEDS: Magnesium Oxide 400 MG TAB PO SCH (09:39)
[2018-11-16] MEDS: Multivitamin W/ Minerals 1 TAB PO SCH (09:39)
[2018-11-16] MEDS: Aspirin 81 mg Enteric Coated Tablet PO SCH (09:39)
[2018-11-16] MEDS: Folic Acid 1 MG TAB PO SCH (09:43)
[2018-11-16] MEDS: Thiamine 100 MG TAB PO SCH (09:43)
[2018-11-16] MEDS ORDERED: Iopamidol 370 76% 50 ML VIAL FS ONE (10:21)
--- NOTE | 2018-11-16 12:42 | PDOC.PN ---
- Subjective Encounter Start Date: 11/16/18 Encounter Start Time: 13:40 Subjective: Patient had AICD placed this AM. Feeling more upbeat today. Speaking -: about resources to possibly help with house foreclosure. Per Dr. Shay's -: note yest patient did tell a friend that he was going to attempt suic again - Objective Resuscitation Status - Order Detail: 11/13/18 10:40 Resuscitation Status Routine Resuscitation Status: FULL: Full Resuscitation Discussed with: Currently intubated, will need discussion with family as they are available MAR Reviewed: Yes Vital Signs & Weight: Vital Signs (12 hours) Temp Pulse BP Pulse Ox 11/16/18 10:00 98.3 F 11/16/18 09:38 93 129/87 11/16/18 08:00 157/63 H 97 11/16/18 07:00 98.4 F 11/16/18 04:00 98.7 F 131/80 Weight Weight 193 lb 4.8 oz Most Recent Monitor Data Heart Rate from ECG 92 NIBP 139/97 NIBP BP-Mean 111 Respiration from ECG 4 SpO2 98 I&O: 11/15/18 11/16/18 11/17/18 06:59 06:59 06:59 Intake Total 2436 1530 300 Output Total 2550 2850 840 Balance -114 -1320 -540 Result Diagrams: 11/16/18 03:50 11/16/18 03:50 Phys Exam - Physical Examination Constitutional: NAD HEENT: moist MMs Respiratory: no wheezing, no rales, no rhonchi left upper chest with AICD in place, incision c/d/i Cardiovascular: RRR Gastrointestinal: soft, positive bowel sounds Neurological: non-focal, moves all 4 limbs Psychiatric: normal affect, A&O x 3 Dx/Plan (1) Acute respiratory failure with hypoxia and hypercapnia Code(s): J96.01 - ACUTE RESPIRATORY FAILURE WITH HYPOXIA; J96.02 - ACUTE RESPIRATORY FAILURE WITH HYPERCAPNIA Status: Acute Comment: extubated now, likely due to alcohol and Xanax overdose (2) Suicide attempt by benzodiazepine overdose Code(s): T42.4X2A - POISONING BY BENZODIAZEPINES, INTENTIONAL SELF-HARM, INIT Status: Suspected Comment: suicide attempt with Xanax, will be medically clear tomorrow for [facility] to place (3) Cardiomyopathy Code(s): I42.9 - CARDIOMYOPATHY, UNSPECIFIED Status: Chronic Qualifiers: Cardiomyopathy type: ischemic Qualified Code(s): I25.5 - Ischemic cardiomyopathy Comment: josé miguelley alcoholic component as well, AICD placed this AM (4) Chronic CHF (congestive heart failure) Code(s): I50.9 - HEART FAILURE, UNSPECIFIED Status: Chronic Qualifiers: Heart failure type: combined systolic and diastolic Qualified Code(s): I50.42 - Chronic combined systolic (congestive) and diastolic (congestive) heart failure Comment: Stage 3 (5) Alcohol abuse Code(s): F10.10 - ALCOHOL ABUSE, UNCOMPLICATED Status: Chronic Comment: [facility] protocol (6) DM2 (diabetes mellitus, type 2) Status: Chronic (7) HLD (hyperlipidemia) Code(s): E78.5 - HYPERLIPIDEMIA, UNSPECIFIED Status: Chronic (8) HTN (hypertension) Code(s): I10 - ESSENTIAL (PRIMARY) HYPERTENSION Status: Chronic (9) Tobacco abuse Code(s): Z72.0 - TOBACCO USE Status: Chronic (10) CAD (coronary artery disease) Code(s): I25.10 - ATHSCL HEART DISEASE OF [place] CORONARY ARTERY W/O ANG PCTRS Status: Chronic Qualifiers: Coronary Disease-Associated Artery/Lesion type: [place] artery - Plan cont current plan of care MR eval and placement tomorrow. States he feels better but not -: certain can trust this due to his statements earlier in hospitalization -: about intention to commit suicide again when he gets home. * . - Discharge Day Encounter end time: 13:50
--- NOTE | 2018-11-16 16:19 | PRG ---
DATE OF SERVICE: 11/16/2018 Mr. Cowan has been evaluated by [facility] for inpatient therapy. blood pressure 129/108 and 131/101 earlier, heart rate is 102, respiratory rate 15, oximetry is 98%. Lungs, heart, and abdomen are unchanged. LABORATORY DATA: White count 5.6, hemoglobin 11.7, platelets 184. Electrolytes are normal. IMPRESSION: Status post suicide attempt with ongoing suicidal ideation. PLAN: Transfer to an inpatient psychiatric facility when a bed becomes available. Job ID: [id number]
[2018-11-16] MEDS ORDERED: PROPOFOL 200 MG/20 ML VIAL ONE (16:25)
[2018-11-16] MEDS: ceFAZolin 1 GM/D5W 1 GM in Premix Bag 1 BAG IVPB SCH (20:55)
[2018-11-16] MEDS: Atorvastatin Calcium 40 MG TAB PO SCH (20:57)
[2018-11-17] MEDS: ceFAZolin 1 GM/D5W 1 GM in Premix Bag 1 BAG IVPB SCH (04:14)
[2018-11-17 05:13] LABS: Eosinophils 3 % (0-10); Hemoglobin 11.4 g/dL (14.0-18.0); Lymphocytes 27 % (21-51); MDiff Complete? YES; Mean Corpuscular HGB CONC 34.7 g/dL (32.0-36.0); Mean Corpuscular Volume 92.2 fL (78.0-98.0); Monocytes 13 % (0-10); Neutrophil 57 % (42-75); Platelet Count 173 thou/uL (130-400); Platelet Morphology Comment Appears Adequate; RBC Distribution Width 12.7 % (11.5-14.5); Red Blood Cell (RBC) Count 3.55 mill/uL (4.70-6.10); White Blood Cell (WBC) Count 5.9 thou/uL (4.8-10.8)
[2018-11-17 05:24] LABS: ALT (SGPT) 13 U/L (8-55); AST (SGOT) 21 U/L (5-34); Albumin 3.6 g/dL (3.4-4.8); Alkaline Phosphatase 81 U/L (40-150); Anion Gap 9 mmol/L (10-20); BUN (Urea Nitrogen) 8 mg/dL (8.4-25.7); Bilirubin, Total 0.9 mg/dL (0.2-1.2); Calc. Creatinine Clearance 111 mL/min (70-130); Carbon Dioxide 27 mmol/L (23-31); Chloride 103 mmol/L (98-107); Estimated GFR-MDRD Greater than 90; Globulin 2.7 g/dL (2.4-3.5); Glucose 116 mg/dL (80-115); Potassium 3.4 mmol/L (3.5-5.1); Protein, Total 6.3 g/dL (5.8-8.1); Sodium 136 mmol/L (136-145)
--- NOTE | 2018-11-17 07:58 | RAD ---
Portable chest: HISTORY: CCU follow-up COMPARISON: 11/16/2018 FINDINGS:Cardiomegaly. Lung colón remain clear. AICD lead is now noted overlying right ventricle. IMPRESSION: No acute finding
[2018-11-17] MEDS ORDERED: Carvedilol 6.25 MG TAB PO SCH (08:00)
[2018-11-17] MEDS: Thiamine 100 MG TAB PO SCH (09:17)
[2018-11-17] MEDS: Cephalexin 250 MG CAP PO SCH ×4 (09:17→21:16)
[2018-11-17] MEDS: Multivitamin W/ Minerals 1 TAB PO SCH (09:18)
[2018-11-17] MEDS: Lisinopril 2.5 MG TAB PO SCH (09:18)
[2018-11-17] MEDS: Folic Acid 1 MG TAB PO SCH (09:18)
[2018-11-17] MEDS: Furosemide 40 MG TAB PO SCH (09:19)
[2018-11-17] MEDS: Magnesium Oxide 400 MG TAB PO SCH (09:19)
[2018-11-17] MEDS: Diazepam 5 MG TAB PO PRN ×2 (09:19→21:15)
[2018-11-17] MEDS: Aspirin 81 mg Enteric Coated Tablet PO SCH (09:19)
--- NOTE | 2018-11-17 09:22 | PDOC.PN ---
- Subjective Encounter Start Date: 11/17/18 Encounter Start Time: 12:30 Subjective: No complaints. No current SI. Some soreness at surgery site only. - Objective Resuscitation Status - Order Detail: 11/13/18 10:40 Resuscitation Status Routine Resuscitation Status: FULL: Full Resuscitation Discussed with: Currently intubated, will need discussion with family as they are available MAR Reviewed: Yes Vital Signs & Weight: Vital Signs (12 hours) Temp Pulse Resp BP Pulse Ox 11/17/18 09:19 101/86 11/17/18 09:18 110 H 101/86 11/17/18 07:59 142/90 H 11/17/18 07:00 98.3 F 11/17/18 06:59 97 11/17/18 06:56 105 H 19 97 11/17/18 04:00 98.1 F 106/68 11/17/18 00:30 73 16 96 11/17/18 00:00 98.1 F 152/95 H Weight Weight 178 lb 9.191 oz Most Recent Monitor Data Heart Rate from ECG 102 NIBP 137/82 NIBP BP-Mean 100 Respiration from ECG 2 SpO2 93 I&O: 11/16/18 11/17/18 11/18/18 06:59 06:59 06:59 Intake Total 1530 2120 Output Total 2850 2730 0 Balance -1320 -610 0 Result Diagrams: 11/17/18 04:09 11/17/18 04:09 Phys Exam - Physical Examination Constitutional: NAD HEENT: moist MMs Respiratory: no wheezing, no rales, no rhonchi Cardiovascular: RRR, no significant murmur Gastrointestinal: soft, positive bowel sounds Neurological: non-focal Psychiatric: normal affect, A&O x 3 Dx/Plan (1) Acute respiratory failure with hypoxia and hypercapnia Code(s): J96.01 - ACUTE RESPIRATORY FAILURE WITH HYPOXIA; J96.02 - ACUTE RESPIRATORY FAILURE WITH HYPERCAPNIA Status: Acute Comment: extubated now, likely due to alcohol and Xanax overdose (2) Suicide attempt by benzodiazepine overdose Code(s): T42.4X2A - POISONING BY BENZODIAZEPINES, INTENTIONAL SELF-HARM, INIT Status: Suspected Comment: suicide attempt with Xanax, will be medically clear for [facility] placement today (3) Cardiomyopathy Code(s): I42.9 - CARDIOMYOPATHY, UNSPECIFIED Status: Chronic Qualifiers: Cardiomyopathy type: ischemic Qualified Code(s): I25.5 - Ischemic cardiomyopathy Comment: fiordaliza alcoholic component as well, AICD placed 11/16/18 (4) Chronic CHF (congestive heart failure) Code(s): I50.9 - HEART FAILURE, UNSPECIFIED Status: Chronic Qualifiers: Heart failure type: combined systolic and diastolic Qualified Code(s): I50.42 - Chronic combined systolic (congestive) and diastolic (congestive) heart failure Comment: Stage 3 (5) Alcohol abuse Code(s): F10.10 - ALCOHOL ABUSE, UNCOMPLICATED Status: Chronic Comment: [facility] protocol (6) DM2 (diabetes mellitus, type 2) Status: Chronic (7) HLD (hyperlipidemia) Code(s): E78.5 - HYPERLIPIDEMIA, UNSPECIFIED Status: Chronic (8) HTN (hypertension) Code(s): I10 - ESSENTIAL (PRIMARY) HYPERTENSION Status: Chronic (9) Tobacco abuse Code(s): Z72.0 - TOBACCO USE Status: Chronic (10) CAD (coronary artery disease) Code(s): I25.10 - ATHSCL HEART DISEASE OF [place] CORONARY ARTERY W/O ANG PCTRS Status: Chronic Qualifiers: Coronary Disease-Associated Artery/Lesion type: [place] artery - Plan cont current plan of care Patient much improved as far as his depression. Not certain can trust this -: completely has he told a friend he was going to try to commit suicide again -: when he gets home. Will have [facility] reevaluated today and likely inpatient -: psych placement needed. Will need Keflex for 7 days postop AICD. * . - Discharge Day Encounter end time: 12:40
--- NOTE | 2018-11-17 11:31 | PRG ---
DATE OF SERVICE: 11/17/2018 SUBJECTIVE: Mr. Cowan has no new complaints. OBJECTIVE: VITAL SIGNS: Afebrile. Blood pressure 139/65, heart rate 95 currently. He is in sinus rhythm. LUNGS: Clear. HEART: Regular rhythm. ABDOMEN: Soft and nontender. EXTREMITIES: Without edema. IMPRESSION: 1. Status post intentional Xanax overdose. 2. Congestive heart failure. 3. Status post placement of defibrillator. 4. Severe depression with ongoing suicidal ideation. 5. Ongoing heavy alcohol intake. It has been explained multiple times that this may affect his heart. 6. Status post mechanical ventilation this admission for respiratory failure associated with alprazolam overdose. 7. Awaiting re-evaluation by [facility] for consideration for inpatient treatment. Job ID: [id number]
--- NOTE | 2018-11-17 11:59 | PDOC.CTH ---
Cardiology Progress Note - Subjective EP PROGRESS NOTE: 11/17/18 Seen as follow up s/p ICD for chronic systolic heart failure. No cardiac complaints this AM. minimal pain/tenderness at implant site. - Objective Vital Signs Temp Pulse Resp BP Pulse Ox 11/17/18 09:19 101/86 11/17/18 09:18 110 H 101/86 11/17/18 08:00 98.3 F 98 11/17/18 07:59 142/90 H 11/17/18 07:00 98.3 F 11/17/18 06:59 97 11/17/18 06:56 105 H 19 97 11/17/18 04:00 98.1 F 106/68 11/17/18 00:30 73 16 96 11/17/18 00:00 98.1 F 152/95 H Weight 178 lb 9.191 oz 11/16/18 11/17/18 11/18/18 06:59 06:59 06:59 Intake Total 1530 2120 480 Output Total 2850 2730 970 Balance -1320 -610 -490 - Physical Examination General/Neuro: alert & oriented x3, NAD Neck: carotid US brisk, no JVD present Lungs: CTA, unlabored respirations Heart: PMI normal, RRR Abdomen: NT/ND, soft Other PE findings: L subclavian ICD implant. Incision CDI - Telemetry Telemetry Rhythm: SR - Labs Result Diagrams: 11/17/18 04:09 11/17/18 04:09 Troponin/CKMB CK-MB (CK-2) 1.2 ng/mL (0-6.6) 11/13/18 07:19 Troponin I 0.092 ng/mL (< 0.028) H 11/13/18 13:28 - Assessment/Plan 1. Cardiomyopathy, ischemic - s/p S-ICD implant 11/16/18 2. ICD - CXR checked this AM. No pneumothorax. Shows lead over RV. Stable - Post implant cephalexin x 7 days Ok for DC by EP once medically cleared. Continue standard HF management Continue cephalexin. 2 week wound check with [facility] office will be arranged.
[2018-11-17] MEDS ORDERED: Senokot S 8.6-50 MG TAB PO PRN (12:53)
--- NOTE | 2018-11-17 14:52 | PQF ---
CLINICAL DOCUMENTATION IMPROVEMENT CLARIFICATION FORM: ICD-10 Updated PLEASE DO AN ADDENDUM TO THE PROGRESS NOTE WITH ANY DOCUMENTATION UPDATES OR ADDITIONS AND CARRY THROUGH TO DC SUMMARY. THANK YOU. DATE: 11/17/2018 ATTN: Dr. Henson Please exercise your independent, professional judgment in responding to the clarification form. Clinical indicators are provided on the bottom of this form for your review Please check appropriate box(s): [ X ] Encephalopathy: Type: [ X ] Acute [ ] Subacute [ ] Chronic Etiology: [ ] Metabolic [ ] Toxic [ X ] Drug induced: _Xanax overdose [ ] Unspecified [ ] Other (please specify) [ ] Other diagnosis [ ] Unable to determine In addition, please specify: Present on Admission (POA): [ X ] Yes [ ] No [ ] Unable to determine For continuity of documentation, please document condition throughout progress notes and discharge summary. Thank You. CLINICAL INDICATORS - SIGNS / SYMPTOMS / LABS H&P 11/13: Urine drug screen shows benzodiazepine and plasma alcohol of 20 Found unresponsive, unable to protect his airway with present alcohol and benzodiazepine 11/13 (Leyva) Status post encephalopathy 11/14 (Shay) Intentional alprazolam overdose leading to respiratory depression. RISKS: Pn 11/14: Acute respiratory failure with hypoxia and hypercapnia. Suicide attempt by benzodiazepine overdose. TREATMENT: H&P: unable to protect his airway with present alcohol and benzodiazepine, The pt is intubated MAR: 11/13 Order NS IV 50 mls/hr Thank you, Meeta (This form is maintained as a part of the permanent medical record) 2014 [employer]. All Rights Reserved Meeta Hilton RN, BSN [email or web address] Office: [phone] [facility]
[2018-11-17] MEDS: Carvedilol 6.25 MG TAB PO SCH (21:15)
[2018-11-17] MEDS: Docusate 100 MG CAP PO SCH (21:15)
[2018-11-17] MEDS: Atorvastatin Calcium 40 MG TAB PO SCH (21:15)
[2018-11-17] MEDS: Nicotine 21 MG PATCH TOP SCH (21:23)
[2018-11-18] MEDS: Diazepam 5 MG TAB PO PRN (01:30)
[2018-11-18 06:15] LABS: ALT (SGPT) 34 U/L (8-55); AST (SGOT) 46 U/L (5-34); Albumin 3.9 g/dL (3.4-4.8); Alkaline Phosphatase 88 U/L (40-150); Anion Gap 11 mmol/L (10-20); BUN (Urea Nitrogen) 9 mg/dL (8.4-25.7); Bilirubin, Total 0.7 mg/dL (0.2-1.2); Calc. Creatinine Clearance 86 mL/min (70-130); Calcium 9.6 mg/dL (7.8-10.44); Carbon Dioxide 29 mmol/L (23-31); Chloride 102 mmol/L (98-107); Estimated GFR-MDRD 77; Glucose 109 mg/dL (80-115); Potassium 3.9 mmol/L (3.5-5.1); Protein, Total 6.9 g/dL (5.8-8.1); Sodium 138 mmol/L (136-145)
[2018-11-18 06:25] LABS: Band 9 % (5-11); Eosinophils 2 % (0-10); Lymphocytes 19 % (21-51); MDiff Complete? YES; Mean Corpuscular Hemoglobin 31.6 pg (27.0-31.0); Mean Corpuscular Volume 92.8 fL (78.0-98.0); Mean Platelet Volume 7.8 fL (7.4-10.4); Monocytes 22 % (0-10); Neutrophil 48 % (42-75); Platelet Count 175 thou/uL (130-400); RBC Distribution Width 12.6 % (11.5-14.5); White Blood Cell (WBC) Count 5.9 thou/uL (4.8-10.8)
--- NOTE | 2018-11-18 07:59 | RAD ---
CHEST 1 VIEW: Date: 11/18/18 INDICATION: Daily CCU examination. COMPARISON: Prior exam dated 11/17/18. FINDINGS: Cardiomegaly is stable. AICD is unchanged. Chronic lung changes are stable. No pleural effusion or pn eumothorax is evident. IMPRESSION: Stable exam. POS: BH
[2018-11-18] MEDS: Folic Acid 1 MG TAB PO SCH (08:43)
[2018-11-18] MEDS: Cephalexin 250 MG CAP PO SCH ×4 (08:43→20:42)
[2018-11-18] MEDS: Furosemide 40 MG TAB PO SCH (08:43)
[2018-11-18] MEDS: Thiamine 100 MG TAB PO SCH (08:44)
[2018-11-18] MEDS: Docusate 100 MG CAP PO SCH ×2 (08:44→20:42)
[2018-11-18] MEDS: Aspirin 81 mg Enteric Coated Tablet PO SCH (08:44)
[2018-11-18] MEDS: Magnesium Oxide 400 MG TAB PO SCH (08:44)
[2018-11-18] MEDS: Carvedilol 6.25 MG TAB PO SCH ×3 (08:44→20:41)
[2018-11-18] MEDS: Lisinopril 5 MG TAB PO SCH (08:44)
[2018-11-18] MEDS: Multivitamin W/ Minerals 1 TAB PO SCH (08:44)
--- NOTE | 2018-11-18 15:34 | PRG ---
DATE OF SERVICE: 11/18/2018 SUBJECTIVE: Apparently, Mr. Cowan was turned down by had too many medical problems. He actually has nothing that needs acute medical management. He has a chronic systolic cardiomyopathy and now has the defibrillator in place and is not requiring day-to-day adjustment of medications. If he was not suicidal, he would have been discharged the day after his defibrillator was placed. OBJECTIVE: VITAL SIGNS: Blood pressure 114/67, heart rate is 81, respiratory rate is in the 20s. HEENT: Pupils are equal. NECK: Supple. LUNGS: Clear. HEART: Regular rhythm. ABDOMEN: Soft and nontender. EXTREMITIES: Without clubbing, cyanosis, or edema. LABORATORY DATA: White count 5.9, hemoglobin 12.0, platelets 175. Electrolytes are normal, creatinine is 0.98. IMPRESSION AND PLAN: 1. Chronic systolic cardiomyopathy, status post defibrillator placement. 2. Status post suicide attempt with alprazolam. He is stable for discharge in my opinion. Hopefully, we can get him into a psychiatric facility. Job ID: [id number]
[2018-11-18] MEDS: Atorvastatin Calcium 40 MG TAB PO SCH (20:41)
[2018-11-18] MEDS: Nicotine 21 MG PATCH TOP SCH (21:04)
[2018-11-18] MEDS ORDERED: Acetaminophen 325 MG TAB PO PRN (21:39)
[2018-11-18] MEDS ORDERED: tiZANidine HCl 4 MG TAB PO SCH (21:45)
[2018-11-19] MEDS: Carvedilol 6.25 MG TAB PO SCH ×3 (08:06→20:41)
[2018-11-19] MEDS: Cephalexin 250 MG CAP PO SCH ×4 (08:06→20:41)
[2018-11-19] MEDS: Lisinopril 5 MG TAB PO SCH (08:06)
[2018-11-19] MEDS: Aspirin 81 mg Enteric Coated Tablet PO SCH (08:07)
[2018-11-19] MEDS: Multivitamin W/ Minerals 1 TAB PO SCH (08:07)
[2018-11-19] MEDS: Magnesium Oxide 400 MG TAB PO SCH (08:07)
[2018-11-19] MEDS: Furosemide 40 MG TAB PO SCH (08:07)
[2018-11-19] MEDS: Docusate 100 MG CAP PO SCH ×2 (08:07→20:41)
[2018-11-19] MEDS: Thiamine 100 MG TAB PO SCH (08:07)
[2018-11-19] MEDS: Folic Acid 1 MG TAB PO SCH (08:08)
[2018-11-19 08:14] LABS: ALT (SGPT) 65 U/L (8-55); AST (SGOT) 65 U/L (5-34); Albumin 4.1 g/dL (3.4-4.8); Alkaline Phosphatase 93 U/L (40-150); Anion Gap 11 mmol/L (10-20); BUN (Urea Nitrogen) 8 mg/dL (8.4-25.7); Bilirubin, Total 0.8 mg/dL (0.2-1.2); Calc. Creatinine Clearance 103 mL/min (70-130); Calcium 9.7 mg/dL (7.8-10.44); Carbon Dioxide 30 mmol/L (23-31); Chloride 98 mmol/L (98-107); Estimated GFR-MDRD 89; Globulin 3.1 g/dL (2.4-3.5); Glucose 120 mg/dL (80-115); Potassium 4.3 mmol/L (3.5-5.1); Protein, Total 7.2 g/dL (5.8-8.1); Sodium 135 mmol/L (136-145)
--- NOTE | 2018-11-19 08:21 | PDOC.PN ---
- Subjective Encounter Start Date: 11/18/18 Encounter Start Time: 10:00 Subjective: pt up in chair no complains - Objective Resuscitation Status - Order Detail: 11/13/18 10:40 Resuscitation Status Routine Resuscitation Status: FULL: Full Resuscitation Discussed with: Currently intubated, will need discussion with family as they are available Vital Signs & Weight: Vital Signs (12 hours) Temp Pulse Resp BP BP Pulse Ox 11/19/18 08:06 83 106/69 11/19/18 06:27 97 11/19/18 05:06 97.7 F 83 16 106/69 100 11/19/18 00:00 97.8 F 81 16 93/57 L 97 11/18/18 20:41 130/82 Weight Weight 190 lb Most Recent Monitor Data Heart Rate from ECG 119 NIBP 161/113 NIBP BP-Mean 129 Respiration from ECG 21 SpO2 99 I&O: 11/18/18 11/19/18 11/20/18 06:59 06:59 06:59 Intake Total 1160 1540 Output Total 2700 1220 Balance -1540 320 Result Diagrams: 11/18/18 04:23 11/19/18 07:10 Phys Exam - Physical Examination Respiratory: no wheezing, no rales, no rhonchi, wheezing present, clear to auscultation bilateral Cardiovascular: RRR, no significant murmur, no rub, gallop, irregular Gastrointestinal: soft, non-tender, no distention, positive bowel sounds Musculoskeletal: no edema, pulses present, edema present Dx/Plan (1) Acute respiratory failure with hypoxia and hypercapnia Code(s): J96.01 - ACUTE RESPIRATORY FAILURE WITH HYPOXIA; J96.02 - ACUTE RESPIRATORY FAILURE WITH HYPERCAPNIA Status: Acute Comment: extubated now, likely due to alcohol and Xanax overdose (2) Suicide attempt by benzodiazepine overdose Code(s): T42.4X2A - POISONING BY BENZODIAZEPINES, INTENTIONAL SELF-HARM, INIT Status: Suspected Comment: suicide attempt with Xanax, will be medically clear for [facility] placement today (3) Acute systolic CHF (congestive heart failure) Code(s): I50.21 - ACUTE SYSTOLIC (CONGESTIVE) HEART FAILURE Status: Acute (4) COPD (chronic obstructive pulmonary disease) Status: Acute (5) Hyperkalemia Code(s): E87.5 - HYPERKALEMIA Status: Acute (6) Hyponatremia Code(s): E87.1 - HYPO-OSMOLALITY AND HYPONATREMIA Status: Acute Comment: Likley due to Beer potomania and CHF.Suspect Chronic - Plan s/p icd implant 11/16, continue keflex for 7 days -: MR did evaluate pt and pt waiting for inpatient psy -: pt transferred out of icu * . Review of Systems - Review of Systems Respiratory: negative: Cough, Dry, Shortness of Breath, Hemoptysis, SOB with Excertion, Pleuritic Pain, Sputum, Wheezing Cardiovascular: negative: chest pain, palpitations, orthopnea, paroxysmal nocturnal dyspnea, edema, light headedness, other Gastrointestinal: negative: Nausea, Vomiting, Abdominal Pain, Diarrhea, Constipation, Melena, Hematochezia, Other - Medications/Allergies Allergies/Adverse Reactions: Allergies Allergy/AdvReac Type Severity Reaction Status Date / Time No Known Allergies Allergy Verified 05/11/18 03:45 Medications: Current Medications Acetaminophen (Tylenol) 650 mg DC Q4H PRN PRN Reason: Headache/Fever/Mild Pain (1-3) Acetaminophen (Tylenol) 650 mg PO Q6H PRN PRN Reason: Pain Aspirin (Ecotrin) 81 mg PO DAILY [facility] Last Admin: 11/19/18 08:07 Dose: 81 mg Atorvastatin Calcium (Lipitor) 40 mg PO HS [facility] Last Admin: 11/18/18 20:41 Dose: 40 mg Carvedilol (Coreg) 6.25 mg PO TID [facility] Last Admin: 11/19/18 08:06 Dose: 6.25 mg Cephalexin (Keflex) 500 mg PO QID [facility] Stop: 11/23/18 21:01 Last Admin: 11/19/18 08:06 Dose: 500 mg Diazepam (Valium) 5 mg PO Q4H PRN PRN Reason: FOR ASE 10 OR GREATER Last Admin: 11/18/18 01:30 Dose: 5 mg Docusate Sodium (Colace) 100 mg PO BID [facility] Last Admin: 11/19/18 08:07 Dose: 100 mg Folic Acid (Folvite) 1 mg PO DAILY [facility] Last Admin: 11/19/18 08:08 Dose: 1 mg Furosemide (Lasix) 40 mg PO DAILY-AC [facility] Last Admin: 11/19/18 08:07 Dose: 40 mg Potassium Chloride 40 meq/ (Sodium Chloride) 270 mls @ 135 mls/hr IVPB ASDIR PRN PRN Reason: FOR SERUM K+ 2.5 - 3.5 Last Admin: 11/13/18 15:27 Dose: 270 mls Potassium Chloride 40 meq/ (Device) 100 mls @ 50 mls/hr IVPB ASDIR PRN PRN Reason: FOR SERUM K+ 2.5 - 3.5 Magnesium Sulfate 1 gm/ Sodium (Chloride) 102 mls @ 102 mls/hr IV PRN PRN PRN Reason: MAG LEVEL 1.4 - 2.0 Last Admin: 11/13/18 15:27 Dose: 102 mls Magnesium Sulfate 2 gm/ Device 50 mls @ 50 mls/hr IVPB ASDIR PRN PRN Reason: MAGNESIUM < 1.4 Potassium Phosphate 9 mmol/ (Sodium Chloride) 103 mls @ 25.75 mls/hr IVPB ASDIR PRN PRN Reason: Phosphate 1.0-1.8 Potassium Phosphate 12 mmol/ (Sodium Chloride) 254 mls @ 63.5 mls/hr IV ASDIR PRN PRN Reason: Serum phosphate 0.5-0.9 Potassium Phosphate 15 mmol/ (Sodium Chloride) 255 mls @ 63.75 mls/hr IV ASDIR PRN PRN Reason: Serum Phos < 0.5 Iron/Minerals/Multivitamins (Theragran M) 1 tab PO DAILY [facility] Last Admin: 11/19/18 08:07 Dose: 1 tab Lisinopril (Zestril) 5 mg PO DAILY [facility] Last Admin: 11/19/18 08:06 Dose: 5 mg Magnesium Oxide (Magnesium Oxide) 400 mg PO BIDPRN PRN PRN Reason: FOR SERUM MAG 1.4 - 2.0 Magnesium Oxide (Magnesium Oxide) 800 mg PO PRN PRN PRN Reason: FOR SERUM MAG < 1.4 Magnesium Oxide (Magnesium Oxide) 400 mg PO DAILY [facility] Last Admin: 11/19/18 08:07 Dose: 400 mg Miscellaneous (Ase Protocol) 1 each FS ASDIR MEDARDO Miscellaneous Medication (Ccu Electrolyte Replacement) 1 each IVPB ASDIR MEDARDO Miscellaneous Medication (Phos-Nak) 1 pkt PO TIDPRN PRN PRN Reason: FOR PHOS LEVEL 1.0 - 1.8 Miscellaneous Medication (Phos-Nak) 2 pkt PO TIDPRN PRN PRN Reason: FOR PHOS LEVEL 0.5 - 1.0 Nicotine (Nicoderm Patch) 21 mg TOP Q24HR [facility] Last Admin: 11/18/18 21:04 Dose: Not Given Ccu Electrolyte (Replacement Protocol) 0 each FS PRN PRN PRN Reason: FOR ELECTROLYTE REPLACEMENT Potassium Chloride (K-Dur) 40 meq PO ASDIR PRN PRN Reason: FOR SERUM K+ 2.5 - 3.5 Last Admin: 11/17/18 05:45 Dose: 40 meq Potassium Chloride (Klor-Con) 40 meq PER TUBE ASDIR PRN PRN Reason: FOR SERUM K+ 2.5-3.5 Senna/Docusate Sodium (Senokot S) 2 tab PO BID PRN PRN Reason: Constipation Last Admin: 11/17/18 15:50 Dose: 2 tab Sodium Chloride (Flush - Normal Saline) 10 ml IVF Q12HR [facility] Last Admin: 11/19/18 08:08 Dose: 10 ml Sodium Chloride (Flush - Normal Saline) 10 ml IVF PRN PRN PRN Reason: Saline Flush Sodium Chloride (Flush - Normal Saline) 10 ml IVF PRN PRN PRN Reason: Saline Flush Thiamine HCl (Thiamine) 100 mg PO DAILY [facility] Last Admin: 11/19/18 08:07 Dose: 100 mg
[2018-11-19 08:38] LABS: Band 1 % (5-11); Eosinophils 4 % (0-10); Hemoglobin 12.2 g/dL (14.0-18.0); Lymphocytes 17 % (21-51); MDiff Complete? YES; Mean Corpuscular HGB CONC 34.8 g/dL (32.0-36.0); Mean Corpuscular Hemoglobin 31.6 pg (27.0-31.0); Mean Corpuscular Volume 90.9 fL (78.0-98.0); Monocytes 9 % (0-10); Neutrophil 67 % (42-75); Platelet Count 172 thou/uL (130-400); RBC Distribution Width 12.4 % (11.5-14.5); Reactive Lymphocytes 1 % (0-10); Red Blood Cell (RBC) Count 3.84 mill/uL (4.70-6.10); White Blood Cell (WBC) Count 6.2 thou/uL (4.8-10.8)
--- NOTE | 2018-11-19 14:27 | PDOC.PN ---
- Subjective Encounter Start Date: 11/19/18 Encounter Start Time: 10:00 Subjective: pt up in bed no complains - Objective Resuscitation Status - Order Detail: 11/13/18 10:40 Resuscitation Status Routine Resuscitation Status: FULL: Full Resuscitation Discussed with: Currently intubated, will need discussion with family as they are available Vital Signs & Weight: Vital Signs (12 hours) Temp Pulse Resp BP BP Pulse Ox 11/19/18 08:19 97.7 F 101 H 18 137/89 95 11/19/18 08:06 83 106/69 11/19/18 06:27 97 11/19/18 05:06 97.7 F 83 16 106/69 100 Weight Weight 190 lb Most Recent Monitor Data Heart Rate from ECG 119 NIBP 161/113 NIBP BP-Mean 129 Respiration from ECG 21 SpO2 99 I&O: 11/18/18 11/19/18 11/20/18 06:59 06:59 06:59 Intake Total 1160 1540 Output Total 2700 1220 Balance -1540 320 Result Diagrams: 11/19/18 07:10 11/19/18 07:10 Phys Exam - Physical Examination Respiratory: no wheezing, no rales, no rhonchi, wheezing present, clear to auscultation bilateral Cardiovascular: RRR, no significant murmur, no rub, gallop, irregular Gastrointestinal: soft, non-tender, no distention, positive bowel sounds Dx/Plan (1) Acute respiratory failure with hypoxia and hypercapnia Code(s): J96.01 - ACUTE RESPIRATORY FAILURE WITH HYPOXIA; J96.02 - ACUTE RESPIRATORY FAILURE WITH HYPERCAPNIA Status: Acute Comment: extubated now, likely due to alcohol and Xanax overdose (2) Suicide attempt by benzodiazepine overdose Code(s): T42.4X2A - POISONING BY BENZODIAZEPINES, INTENTIONAL SELF-HARM, INIT Status: Suspected Comment: suicide attempt with Xanax, will be medically clear for [facility] placement today (3) Acute systolic CHF (congestive heart failure) Code(s): I50.21 - ACUTE SYSTOLIC (CONGESTIVE) HEART FAILURE Status: Acute (4) COPD (chronic obstructive pulmonary disease) Status: Acute (5) Hyperkalemia Code(s): E87.5 - HYPERKALEMIA Status: Acute (6) Hyponatremia Code(s): E87.1 - HYPO-OSMOLALITY AND HYPONATREMIA Status: Acute Comment: Likley due to Beer potomania and CHF.Suspect Chronic - Plan pt awaiting for inpatient psy placement -: will continue to montior -: pt requested tizanidine * . Review of Systems - Review of Systems Respiratory: negative: Cough, Dry, Shortness of Breath, Hemoptysis, SOB with Excertion, Pleuritic Pain, Sputum, Wheezing Cardiovascular: negative: chest pain, palpitations, orthopnea, paroxysmal nocturnal dyspnea, edema, light headedness, other - Medications/Allergies Allergies/Adverse Reactions: Allergies Allergy/AdvReac Type Severity Reaction Status Date / Time No Known Allergies Allergy Verified 05/11/18 03:45 Medications: Current Medications Acetaminophen (Tylenol) 650 mg [place] Q4H PRN PRN Reason: Headache/Fever/Mild Pain (1-3) Acetaminophen (Tylenol) 650 mg PO Q6H PRN PRN Reason: Pain Aspirin (Ecotrin) 81 mg PO DAILY [facility] Last Admin: 11/19/18 08:07 Dose: 81 mg Atorvastatin Calcium (Lipitor) 40 mg PO HS [facility] Last Admin: 11/18/18 20:41 Dose: 40 mg Carvedilol (Coreg) 6.25 mg PO TID [facility] Last Admin: 11/19/18 14:21 Dose: 6.25 mg Cephalexin (Keflex) 500 mg PO QID [facility] Stop: 11/23/18 21:01 Last Admin: 11/19/18 14:21 Dose: 500 mg Diazepam (Valium) 5 mg PO Q4H PRN PRN Reason: FOR ASE 10 OR GREATER Last Admin: 11/18/18 01:30 Dose: 5 mg Docusate Sodium (Colace) 100 mg PO BID [facility] Last Admin: 11/19/18 08:07 Dose: 100 mg Folic Acid (Folvite) 1 mg PO DAILY [facility] Last Admin: 11/19/18 08:08 Dose: 1 mg Furosemide (Lasix) 40 mg PO DAILY-AC [facility] Last Admin: 11/19/18 08:07 Dose: 40 mg Potassium Chloride 40 meq/ (Sodium Chloride) 270 mls @ 135 mls/hr IVPB ASDIR PRN PRN Reason: FOR SERUM K+ 2.5 - 3.5 Last Admin: 11/13/18 15:27 Dose: 270 mls Potassium Chloride 40 meq/ (Device) 100 mls @ 50 mls/hr IVPB ASDIR PRN PRN Reason: FOR SERUM K+ 2.5 - 3.5 Magnesium Sulfate 1 gm/ Sodium (Chloride) 102 mls @ 102 mls/hr IV PRN PRN PRN Reason: MAG LEVEL 1.4 - 2.0 Last Admin: 11/13/18 15:27 Dose: 102 mls Magnesium Sulfate 2 gm/ Device 50 mls @ 50 mls/hr IVPB ASDIR PRN PRN Reason: MAGNESIUM < 1.4 Potassium Phosphate 9 mmol/ (Sodium Chloride) 103 mls @ 25.75 mls/hr IVPB ASDIR PRN PRN Reason: Phosphate 1.0-1.8 Potassium Phosphate 12 mmol/ (Sodium Chloride) 254 mls @ 63.5 mls/hr IV ASDIR PRN PRN Reason: Serum phosphate 0.5-0.9 Potassium Phosphate 15 mmol/ (Sodium Chloride) 255 mls @ 63.75 mls/hr IV ASDIR PRN PRN Reason: Serum Phos < 0.5 Iron/Minerals/Multivitamins (Theragran M) 1 tab PO DAILY [facility] Last Admin: 11/19/18 08:07 Dose: 1 tab Lisinopril (Zestril) 5 mg PO DAILY [facility] Last Admin: 11/19/18 08:06 Dose: 5 mg Magnesium Oxide (Magnesium Oxide) 400 mg PO BIDPRN PRN PRN Reason: FOR SERUM MAG 1.4 - 2.0 Magnesium Oxide (Magnesium Oxide) 800 mg PO PRN PRN PRN Reason: FOR SERUM MAG < 1.4 Magnesium Oxide (Magnesium Oxide) 400 mg PO DAILY [facility] Last Admin: 11/19/18 08:07 Dose: 400 mg Miscellaneous (Ase Protocol) 1 each FS ASDIR [facility] Miscellaneous Medication (Ccu Electrolyte Replacement) 1 each IVPB ASDIR [facility] Miscellaneous Medication (Phos-Nak) 1 pkt PO TIDPRN PRN PRN Reason: FOR PHOS LEVEL 1.0 - 1.8 Miscellaneous Medication (Phos-Nak) 2 pkt PO TIDPRN PRN PRN Reason: FOR PHOS LEVEL 0.5 - 1.0 Nicotine (Nicoderm Patch) 21 mg TOP Q24HR [facility] Last Admin: 11/18/18 21:04 Dose: Not Given Ccu Electrolyte (Replacement Protocol) 0 each FS PRN PRN PRN Reason: FOR ELECTROLYTE REPLACEMENT Potassium Chloride (K-Dur) 40 meq PO ASDIR PRN PRN Reason: FOR SERUM K+ 2.5 - 3.5 Last Admin: 11/17/18 05:45 Dose: 40 meq Potassium Chloride (Klor-Con) 40 meq PER TUBE ASDIR PRN PRN Reason: FOR SERUM K+ 2.5-3.5 Senna/Docusate Sodium (Senokot S) 2 tab PO BID PRN PRN Reason: Constipation Last Admin: 11/17/18 15:50 Dose: 2 tab Sodium Chloride (Flush - Normal Saline) 10 ml IVF Q12HR [facility] Last Admin: 11/19/18 08:08 Dose: 10 ml Sodium Chloride (Flush - Normal Saline) 10 ml IVF PRN PRN PRN Reason: Saline Flush Sodium Chloride (Flush - Normal Saline) 10 ml IVF PRN PRN PRN Reason: Saline Flush Thiamine HCl (Thiamine) 100 mg PO DAILY [facility] Last Admin: 11/19/18 08:07 Dose: 100 mg
[2018-11-19] MEDS: Atorvastatin Calcium 40 MG TAB PO SCH (20:40)
[2018-11-19] MEDS: Nicotine 21 MG PATCH TOP SCH (20:41)
[2018-11-19] MEDS: tiZANidine HCl 4 MG TAB PO PRN (23:29)
[2018-11-20 06:17] LABS: ALT (SGPT) 41 U/L (8-55); AST (SGOT) 32 U/L (5-34); Albumin 3.7 g/dL (3.4-4.8); Alkaline Phosphatase 79 U/L (40-150); Anion Gap 11 mmol/L (10-20); BUN (Urea Nitrogen) 10 mg/dL (8.4-25.7); Bilirubin, Total 0.8 mg/dL (0.2-1.2); Calc. Creatinine Clearance 108 mL/min (70-130); Calcium 9.4 mg/dL (7.8-10.44); Carbon Dioxide 27 mmol/L (23-31); Chloride 102 mmol/L (98-107); Estimated GFR-MDRD Greater than 90; Globulin 2.6 g/dL (2.4-3.5); Glucose 102 mg/dL (80-115); Potassium 3.7 mmol/L (3.5-5.1); Protein, Total 6.3 g/dL (5.8-8.1); Sodium 136 mmol/L (136-145)
[2018-11-20 07:48] LABS: Band 1 % (5-11); Eosinophils 3 % (0-10); Hemoglobin 10.7 g/dL (14.0-18.0); Lymphocytes 36 % (21-51); MDiff Complete? YES; Mean Corpuscular HGB CONC 34.9 g/dL (32.0-36.0); Mean Corpuscular Hemoglobin 31.8 pg (27.0-31.0); Mean Corpuscular Volume 91.1 fL (78.0-98.0); Mean Platelet Volume 8.1 fL (7.4-10.4); Monocytes 14 % (0-10); Neutrophil 46 % (42-75); Platelet Count 160 thou/uL (130-400); RBC Distribution Width 12.4 % (11.5-14.5); Red Blood Cell (RBC) Count 3.38 mill/uL (4.70-6.10)
[2018-11-20] MEDS: Thiamine 100 MG TAB PO SCH (08:36)
[2018-11-20] MEDS: Docusate 100 MG CAP PO SCH ×2 (08:36→21:48)
[2018-11-20] MEDS: Aspirin 81 mg Enteric Coated Tablet PO SCH (08:36)
[2018-11-20] MEDS: Magnesium Oxide 400 MG TAB PO SCH (08:37)
[2018-11-20] MEDS: Folic Acid 1 MG TAB PO SCH (08:37)
[2018-11-20] MEDS: Cephalexin 250 MG CAP PO SCH ×4 (08:37→21:48)
[2018-11-20] MEDS: Carvedilol 6.25 MG TAB PO SCH ×3 (08:37→21:48)
[2018-11-20] MEDS: Multivitamin W/ Minerals 1 TAB PO SCH (08:37)
[2018-11-20] MEDS: Furosemide 40 MG TAB PO SCH (08:37)
[2018-11-20] MEDS: Lisinopril 5 MG TAB PO SCH (08:39)
--- NOTE | 2018-11-20 15:23 | PDOC.PN ---
- Subjective Encounter Start Date: 11/20/18 Encounter Start Time: 09:00 Subjective: pt up in bed no complains - Objective Resuscitation Status - Order Detail: 11/13/18 10:40 Resuscitation Status Routine Resuscitation Status: FULL: Full Resuscitation Discussed with: Currently intubated, will need discussion with family as they are available Vital Signs & Weight: Vital Signs (12 hours) Temp Pulse Resp BP BP Pulse Ox 11/20/18 13:46 119/72 11/20/18 09:13 97.8 F 76 18 119/72 95 11/20/18 08:39 78 100/64 11/20/18 08:37 100/64 11/20/18 04:00 97.8 F 78 20 100/64 95 Weight Weight 185 lb 7 oz Most Recent Monitor Data Heart Rate from ECG 119 NIBP 161/113 NIBP BP-Mean 129 Respiration from ECG 21 SpO2 99 I&O: 11/19/18 11/20/18 11/21/18 06:59 06:59 06:59 Intake Total 1540 1760 Output Total 1220 Balance 320 1760 Result Diagrams: 11/20/18 04:38 11/20/18 04:38 Phys Exam - Physical Examination Respiratory: no wheezing, no rales, no rhonchi, wheezing present, clear to auscultation bilateral Cardiovascular: RRR, no significant murmur, no rub, gallop, irregular Gastrointestinal: soft, non-tender, no distention, positive bowel sounds Musculoskeletal: no edema, pulses present, edema present Dx/Plan (1) Acute respiratory failure with hypoxia and hypercapnia Code(s): J96.01 - ACUTE RESPIRATORY FAILURE WITH HYPOXIA; J96.02 - ACUTE RESPIRATORY FAILURE WITH HYPERCAPNIA Status: Acute Comment: extubated now, likely due to alcohol and Xanax overdose (2) Suicide attempt by benzodiazepine overdose Code(s): T42.4X2A - POISONING BY BENZODIAZEPINES, INTENTIONAL SELF-HARM, INIT Status: Suspected Comment: suicide attempt with Xanax, will be medically clear for [facility] placement today (3) Acute systolic CHF (congestive heart failure) Code(s): I50.21 - ACUTE SYSTOLIC (CONGESTIVE) HEART FAILURE Status: Acute (4) COPD (chronic obstructive pulmonary disease) Status: Acute (5) Hyperkalemia Code(s): E87.5 - HYPERKALEMIA Status: Acute (6) Hyponatremia Code(s): E87.1 - HYPO-OSMOLALITY AND HYPONATREMIA Status: Acute Comment: Likley due to Beer potomania and CHF.Suspect Chronic - Plan pt medically stable. waiting for inpatient psy bed * . Review of Systems - Review of Systems Respiratory: negative: Cough, Dry, Shortness of Breath, Hemoptysis, SOB with Excertion, Pleuritic Pain, Sputum, Wheezing Cardiovascular: negative: chest pain, palpitations, orthopnea, paroxysmal nocturnal dyspnea, edema, light headedness, other Gastrointestinal: negative: Nausea, Vomiting, Abdominal Pain, Diarrhea, Constipation, Melena, Hematochezia, Other - Medications/Allergies Allergies/Adverse Reactions: Allergies Allergy/AdvReac Type Severity Reaction Status Date / Time No Known Allergies Allergy Verified 05/11/18 03:45 Medications: Current Medications Acetaminophen (Tylenol) 650 mg [place] Q4H PRN PRN Reason: Headache/Fever/Mild Pain (1-3) Acetaminophen (Tylenol) 650 mg PO Q6H PRN PRN Reason: Pain Aspirin (Ecotrin) 81 mg PO DAILY [facility] Last Admin: 11/20/18 08:36 Dose: 81 mg Atorvastatin Calcium (Lipitor) 40 mg PO HS [facility] Last Admin: 11/19/18 20:40 Dose: 40 mg Carvedilol (Coreg) 6.25 mg PO TID [facility] Last Admin: 11/20/18 13:46 Dose: 6.25 mg Cephalexin (Keflex) 500 mg PO QID [facility] Stop: 11/23/18 21:01 Last Admin: 11/20/18 13:46 Dose: 500 mg Diazepam (Valium) 5 mg PO Q4H PRN PRN Reason: FOR ASE 10 OR GREATER Last Admin: 11/18/18 01:30 Dose: 5 mg Docusate Sodium (Colace) 100 mg PO BID [facility] Last Admin: 11/20/18 08:36 Dose: 100 mg Folic Acid (Folvite) 1 mg PO DAILY [facility] Last Admin: 11/20/18 08:37 Dose: 1 mg Furosemide (Lasix) 40 mg PO DAILY-AC [facility] Last Admin: 11/20/18 08:37 Dose: 40 mg Potassium Chloride 40 meq/ (Sodium Chloride) 270 mls @ 135 mls/hr IVPB ASDIR PRN PRN Reason: FOR SERUM K+ 2.5 - 3.5 Last Admin: 11/13/18 15:27 Dose: 270 mls Potassium Chloride 40 meq/ (Device) 100 mls @ 50 mls/hr IVPB ASDIR PRN PRN Reason: FOR SERUM K+ 2.5 - 3.5 Magnesium Sulfate 1 gm/ Sodium (Chloride) 102 mls @ 102 mls/hr IV PRN PRN PRN Reason: MAG LEVEL 1.4 - 2.0 Last Admin: 11/13/18 15:27 Dose: 102 mls Magnesium Sulfate 2 gm/ Device 50 mls @ 50 mls/hr IVPB ASDIR PRN PRN Reason: MAGNESIUM < 1.4 Potassium Phosphate 9 mmol/ (Sodium Chloride) 103 mls @ 25.75 mls/hr IVPB ASDIR PRN PRN Reason: Phosphate 1.0-1.8 Potassium Phosphate 12 mmol/ (Sodium Chloride) 254 mls @ 63.5 mls/hr IV ASDIR PRN PRN Reason: Serum phosphate 0.5-0.9 Potassium Phosphate 15 mmol/ (Sodium Chloride) 255 mls @ 63.75 mls/hr IV ASDIR PRN PRN Reason: Serum Phos < 0.5 Iron/Minerals/Multivitamins (Theragran M) 1 tab PO DAILY [facility] Last Admin: 11/20/18 08:37 Dose: 1 tab Lisinopril (Zestril) 5 mg PO DAILY [facility] Last Admin: 11/20/18 08:39 Dose: Not Given Magnesium Oxide (Magnesium Oxide) 400 mg PO BIDPRN PRN PRN Reason: FOR SERUM MAG 1.4 - 2.0 Magnesium Oxide (Magnesium Oxide) 800 mg PO PRN PRN PRN Reason: FOR SERUM MAG < 1.4 Magnesium Oxide (Magnesium Oxide) 400 mg PO DAILY [facility] Last Admin: 11/20/18 08:37 Dose: 400 mg Miscellaneous (Ase Protocol) 1 each FS ASDIR [facility] Miscellaneous Medication (Ccu Electrolyte Replacement) 1 each IVPB ASDIR [facility] Miscellaneous Medication (Phos-Nak) 1 pkt PO TIDPRN PRN PRN Reason: FOR PHOS LEVEL 1.0 - 1.8 Miscellaneous Medication (Phos-Nak) 2 pkt PO TIDPRN PRN PRN Reason: FOR PHOS LEVEL 0.5 - 1.0 Nicotine (Nicoderm Patch) 21 mg TOP Q24HR [facility] Last Admin: 11/19/18 20:41 Dose: Not Given Ccu Electrolyte (Replacement Protocol) 0 each FS PRN PRN PRN Reason: FOR ELECTROLYTE REPLACEMENT Potassium Chloride (K-Dur) 40 meq PO ASDIR PRN PRN Reason: FOR SERUM K+ 2.5 - 3.5 Last Admin: 11/17/18 05:45 Dose: 40 meq Potassium Chloride (Klor-Con) 40 meq PER TUBE ASDIR PRN PRN Reason: FOR SERUM K+ 2.5-3.5 Senna/Docusate Sodium (Senokot S) 2 tab PO BID PRN PRN Reason: Constipation Last Admin: 11/17/18 15:50 Dose: 2 tab Sodium Chloride (Flush - Normal Saline) 10 ml IVF Q12HR [facility] Last Admin: 11/20/18 08:39 Dose: 10 ml Sodium Chloride (Flush - Normal Saline) 10 ml IVF PRN PRN PRN Reason: Saline Flush Sodium Chloride (Flush - Normal Saline) 10 ml IVF PRN PRN PRN Reason: Saline Flush Thiamine HCl (Thiamine) 100 mg PO DAILY [facility] Last Admin: 11/20/18 08:36 Dose: 100 mg Tizanidine HCl (Zanaflex) 4 mg PO HS PRN PRN Reason: Moderate Pain (4-6) Last Admin: 11/19/18 23:29 Dose: 4 mg
--- NOTE | 2018-11-20 16:24 | PRG ---
DATE OF SERVICE: 11/20/2018 SUBJECTIVE: He has no complaints. OBJECTIVE: GENERAL: He is in no distress. VITAL SIGNS: He is afebrile. Heart rate 76, blood pressure 119/72, respiratory rate 18, oximetry is 95%. LUNGS: Clear. HEART: Regular rhythm. ABDOMEN: Soft. EXTREMITIES: Without edema. IMPRESSION AND PLAN: 1. Status post intentional overdose with ongoing suicidal ideation. 2. Alcohol abuse. 3. Depression. We are still trying to get him into an inpatient psychiatric facility. Since he is medically stable, we will sign off. Job ID: [id number]
[2018-11-20] MEDS: Atorvastatin Calcium 40 MG TAB PO SCH (21:48)
[2018-11-20] MEDS: Nicotine 21 MG PATCH TOP SCH (21:49)
[2018-11-20] MEDS: tiZANidine HCl 4 MG TAB PO PRN (23:27)
[2018-11-21 07:27] LABS: ALT (SGPT) 31 U/L (8-55); AST (SGOT) 30 U/L (5-34); Albumin 3.9 g/dL (3.4-4.8); Alkaline Phosphatase 82 U/L (40-150); Anion Gap 9 mmol/L (10-20); BUN (Urea Nitrogen) 8 mg/dL (8.4-25.7); Bilirubin, Total 0.9 mg/dL (0.2-1.2); Calc. Creatinine Clearance 99 mL/min (70-130); Calcium 9.4 mg/dL (7.8-10.44); Carbon Dioxide 29 mmol/L (23-31); Chloride 103 mmol/L (98-107); Estimated GFR-MDRD 88; Globulin 2.6 g/dL (2.4-3.5); Glucose 116 mg/dL (80-115); Potassium 4.5 mmol/L (3.5-5.1); Protein, Total 6.5 g/dL (5.8-8.1); Sodium 136 mmol/L (136-145)
[2018-11-21 07:33] LABS: Mean Corpuscular HGB CONC 35.2 g/dL (32.0-36.0); Mean Corpuscular Volume 90.9 fL (78.0-98.0); Mean Platelet Volume 8.2 fL (7.4-10.4); Platelet Count 167 thou/uL (130-400); RBC Distribution Width 12.4 % (11.5-14.5); Red Blood Cell (RBC) Count 3.44 mill/uL (4.70-6.10); White Blood Cell (WBC) Count 5.8 thou/uL (4.8-10.8)
[2018-11-21] MEDS: Lisinopril 5 MG TAB PO SCH (08:14)
[2018-11-21] MEDS: Cephalexin 250 MG CAP PO SCH ×3 (08:14→16:47)
[2018-11-21] MEDS: Folic Acid 1 MG TAB PO SCH (08:15)
[2018-11-21] MEDS: Thiamine 100 MG TAB PO SCH (08:15)
[2018-11-21] MEDS: Docusate 100 MG CAP PO SCH (08:15)
[2018-11-21] MEDS: Carvedilol 6.25 MG TAB PO SCH ×2 (08:15→15:33)
[2018-11-21] MEDS: Aspirin 81 mg Enteric Coated Tablet PO SCH (08:15)
[2018-11-21] MEDS: Furosemide 40 MG TAB PO SCH (08:15)
[2018-11-21] MEDS: Magnesium Oxide 400 MG TAB PO SCH (08:15)
[2018-11-21] MEDS: Multivitamin W/ Minerals 1 TAB PO SCH (08:15)
[2018-11-21 08:39] LABS: Band 4 % (5-11); Eosinophils 2 % (0-10); Lymphocytes 24 % (21-51); MDiff Complete? YES; Monocytes 8 % (0-10); Neutrophil 58 % (42-75); Platelet Morphology Comment Appears Adequate; Polychromasia SLIGHT = 2-3 cells (100X) (0-2/hpf); Reactive Lymphocytes 2 % (0-10)
--- NOTE | 2018-11-21 12:44 | PDOC.PN ---
- Subjective Encounter Start Date: 11/21/18 Encounter Start Time: 12:44 -: pt up in bed no complains - Objective Resuscitation Status - Order Detail: 11/13/18 10:40 Resuscitation Status Routine Resuscitation Status: FULL: Full Resuscitation Discussed with: Currently intubated, will need discussion with family as they are available Vital Signs & Weight: Vital Signs (12 hours) Temp Pulse Resp BP BP BP Pulse Ox 11/21/18 12:24 98.2 F 82 18 113/65 100 11/21/18 08:14 79 11/21/18 08:01 98.1 F 79 16 112/75 97 11/21/18 08:00 112/75 97 11/21/18 04:00 97.4 F L 80 18 95/61 97 Weight Weight 184 lb 9 oz Most Recent Monitor Data Heart Rate from ECG 119 NIBP 161/113 NIBP BP-Mean 129 Respiration from ECG 21 SpO2 99 I&O: 11/20/18 11/21/18 11/22/18 06:59 06:59 06:59 Intake Total 1760 940 Balance 1760 940 Result Diagrams: 11/21/18 06:27 11/21/18 06:27 Phys Exam - Physical Examination Neck: no nodes, no JVD, supple, full ROM Respiratory: no wheezing, no rales, no rhonchi, wheezing present, clear to auscultation bilateral Cardiovascular: RRR, no significant murmur, no rub, gallop, irregular Gastrointestinal: soft, non-tender, no distention, positive bowel sounds Dx/Plan (1) Acute respiratory failure with hypoxia and hypercapnia Code(s): J96.01 - ACUTE RESPIRATORY FAILURE WITH HYPOXIA; J96.02 - ACUTE RESPIRATORY FAILURE WITH HYPERCAPNIA Status: Acute Comment: extubated now, likely due to alcohol and Xanax overdose (2) Suicide attempt by benzodiazepine overdose Code(s): T42.4X2A - POISONING BY BENZODIAZEPINES, INTENTIONAL SELF-HARM, INIT Status: Suspected Comment: suicide attempt with Xanax, will be medically clear for [facility] placement today (3) Acute systolic CHF (congestive heart failure) Code(s): I50.21 - ACUTE SYSTOLIC (CONGESTIVE) HEART FAILURE Status: Acute (4) COPD (chronic obstructive pulmonary disease) Status: Acute (5) Hyperkalemia Code(s): E87.5 - HYPERKALEMIA Status: Acute (6) Hyponatremia Code(s): E87.1 - HYPO-OSMOLALITY AND HYPONATREMIA Status: Acute Comment: Likley due to Beer potomania and CHF.Suspect Chronic - Plan medicall clear needs inpatient psy * . Review of Systems - Review of Systems Cardiovascular: negative: chest pain, palpitations, orthopnea, paroxysmal nocturnal dyspnea, edema, light headedness, other Gastrointestinal: negative: Nausea, Vomiting, Abdominal Pain, Diarrhea, Constipation, Melena, Hematochezia, Other - Medications/Allergies Allergies/Adverse Reactions: Allergies Allergy/AdvReac Type Severity Reaction Status Date / Time No Known Allergies Allergy Verified 05/11/18 03:45 Medications: Current Medications Acetaminophen (Tylenol) 650 mg [place] Q4H PRN PRN Reason: Headache/Fever/Mild Pain (1-3) Acetaminophen (Tylenol) 650 mg PO Q6H PRN PRN Reason: Pain Aspirin (Ecotrin) 81 mg PO DAILY [facility] Last Admin: 11/21/18 08:15 Dose: 81 mg Atorvastatin Calcium (Lipitor) 40 mg PO HS [facility] Last Admin: 11/20/18 21:48 Dose: 40 mg Carvedilol (Coreg) 6.25 mg PO TID [facility] Last Admin: 11/21/18 08:15 Dose: 6.25 mg Cephalexin (Keflex) 500 mg PO QID [facility] Stop: 11/23/18 21:01 Last Admin: 11/21/18 08:14 Dose: 500 mg Diazepam (Valium) 5 mg PO Q4H PRN PRN Reason: FOR ASE 10 OR GREATER Last Admin: 11/18/18 01:30 Dose: 5 mg Docusate Sodium (Colace) 100 mg PO BID [facility] Last Admin: 11/21/18 08:15 Dose: 100 mg Folic Acid (Folvite) 1 mg PO DAILY [facility] Last Admin: 11/21/18 08:15 Dose: 1 mg Furosemide (Lasix) 40 mg PO DAILY-AC [facility] Last Admin: 11/21/18 08:15 Dose: 40 mg Potassium Chloride 40 meq/ (Sodium Chloride) 270 mls @ 135 mls/hr IVPB ASDIR PRN PRN Reason: FOR SERUM K+ 2.5 - 3.5 Last Admin: 11/13/18 15:27 Dose: 270 mls Potassium Chloride 40 meq/ (Device) 100 mls @ 50 mls/hr IVPB ASDIR PRN PRN Reason: FOR SERUM K+ 2.5 - 3.5 Magnesium Sulfate 1 gm/ Sodium (Chloride) 102 mls @ 102 mls/hr IV PRN PRN PRN Reason: MAG LEVEL 1.4 - 2.0 Last Admin: 11/13/18 15:27 Dose: 102 mls Magnesium Sulfate 2 gm/ Device 50 mls @ 50 mls/hr IVPB ASDIR PRN PRN Reason: MAGNESIUM < 1.4 Potassium Phosphate 9 mmol/ (Sodium Chloride) 103 mls @ 25.75 mls/hr IVPB ASDIR PRN PRN Reason: Phosphate 1.0-1.8 Potassium Phosphate 12 mmol/ (Sodium Chloride) 254 mls @ 63.5 mls/hr IV ASDIR PRN PRN Reason: Serum phosphate 0.5-0.9 Potassium Phosphate 15 mmol/ (Sodium Chloride) 255 mls @ 63.75 mls/hr IV ASDIR PRN PRN Reason: Serum Phos < 0.5 Iron/Minerals/Multivitamins (Theragran M) 1 tab PO DAILY [facility] Last Admin: 11/21/18 08:15 Dose: 1 tab Lisinopril (Zestril) 5 mg PO DAILY [facility] Last Admin: 11/21/18 08:14 Dose: 5 mg Magnesium Oxide (Magnesium Oxide) 400 mg PO BIDPRN PRN PRN Reason: FOR SERUM MAG 1.4 - 2.0 Magnesium Oxide (Magnesium Oxide) 800 mg PO PRN PRN PRN Reason: FOR SERUM MAG < 1.4 Magnesium Oxide (Magnesium Oxide) 400 mg PO DAILY [facility] Last Admin: 11/21/18 08:15 Dose: 400 mg Miscellaneous (Ase Protocol) 1 each FS ASDIR [facility] Miscellaneous Medication (Ccu Electrolyte Replacement) 1 each IVPB ASDIR [facility] Miscellaneous Medication (Phos-Nak) 1 pkt PO TIDPRN PRN PRN Reason: FOR PHOS LEVEL 1.0 - 1.8 Miscellaneous Medication (Phos-Nak) 2 pkt PO TIDPRN PRN PRN Reason: FOR PHOS LEVEL 0.5 - 1.0 Nicotine (Nicoderm Patch) 21 mg TOP Q24HR [facility] Last Admin: 11/20/18 21:49 Dose: Not Given Ccu Electrolyte (Replacement Protocol) 0 each FS PRN PRN PRN Reason: FOR ELECTROLYTE REPLACEMENT Potassium Chloride (K-Dur) 40 meq PO ASDIR PRN PRN Reason: FOR SERUM K+ 2.5 - 3.5 Last Admin: 11/17/18 05:45 Dose: 40 meq Potassium Chloride (Klor-Con) 40 meq PER TUBE ASDIR PRN PRN Reason: FOR SERUM K+ 2.5-3.5 Senna/Docusate Sodium (Senokot S) 2 tab PO BID PRN PRN Reason: Constipation Last Admin: 11/17/18 15:50 Dose: 2 tab Sodium Chloride (Flush - Normal Saline) 10 ml IVF Q12HR [facility] Last Admin: 11/21/18 08:17 Dose: 10 ml Sodium Chloride (Flush - Normal Saline) 10 ml IVF PRN PRN PRN Reason: Saline Flush Sodium Chloride (Flush - Normal Saline) 10 ml IVF PRN PRN PRN Reason: Saline Flush Thiamine HCl (Thiamine) 100 mg PO DAILY [facility] Last Admin: 11/21/18 08:15 Dose: 100 mg Tizanidine HCl (Zanaflex) 4 mg PO HS PRN PRN Reason: Moderate Pain (4-6) Last Admin: 11/20/18 23:27 Dose: 4 mg
[2018-11-21 17:05] VITALS: BP 130/68; TEMP 97.7
--- NOTE | 2018-11-22 01:18 | DIS ---
DATE OF ADMISSION: 11/13/2018 DATE OF DISCHARGE: 11/21/2018 DISCHARGE DIAGNOSES: As of the followin. Acute respiratory failure with hypoxia and hypercapnia. 2. Suicide attempt with benzodiazepine, overdose Xanax. 3. Acute systolic heart failure. 4. Chronic obstructive pulmonary disease. 5. Hyperkalemia. 6. Hyponatremia. HOSPITAL COURSE: The patient is a 68-year-old male, who initially presented to the hospital for altered mentation and also respiratory distress on 11/13. At this time, he was intubated and he was admitted to the ICU. The patient's family later on stated that the patient had most likely overdosed on benzodiazepine due to some financial issues including the loss of his home. The patient also has been drinking heavy dose of alcohol. The patient had a LifeVest on due to his low ejection fraction of 15% to 20% and there were plans of getting AICD as an outpatient. The patient was extubated a few days after he was admitted. He tolerated the procedure well. He continued to improve. The patient underwent an AICD placement on 11/16 by Electrophysiology. The patient also was evaluated by [facility] for inpatient psychiatric eval. PHYSICAL EXAMINATION: VITAL SIGNS: On discharge were as of the following; temperature of 98.8, heart rate of 81, 100% on room air, 115/60. GENERAL: He is awake, alert, and oriented x3. Does not appear in any distress. CV: S1 and S2 present. No murmurs, rubs, or gallops. ABDOMEN: Soft and nontender. Bowel sounds are present x2. EXTREMITIES: No edema. HOME MEDICATIONS: Home medications will be as of the followin. Plavix 75 mg daily. 2. Lasix 40 mg daily. 3. Lisinopril 5 mg daily. 4. Thiamine 100 mg daily. 5. Atorvastatin 40 at bedtime. 6. Carvedilol 6.25 t.i.d. 7. Keflex 500 mg q.i.d. for the next 2 doses, date end will be 11/23. 8. Magnesium oxide 400 mg daily. 9. Nicotine patch 21 mg topical q.24 hours. He was advised not to smoke with this. The patient will be discharged to inpatient psych. He will follow up with Cardiology as an outpatient. Job ID: [id number]
== END 2018-11-21 17:04 | DRG 981 ==
LOC: ERS 07:09 → CCU 09:31 → T4-A 11-18 16:01
PROVIDERS: ADMIT Family Medicine; ATTEND Family Medicine
PROC: 5A1935Z Respiratory Ventilation, Less than 24 Consecutive Hours (ICD-10-PCS; principal; 2018-11-13)
PROC: 0BH17EZ Insertion of Endotracheal Airway into Trachea, Via Natural or Artificial Opening (ICD-10-PCS; 2018-11-13)
PROC: 0JH608Z Insertion of Defibrillator Generator into Chest Subcutaneous Tissue and Fascia, Open Approach (ICD-10-PCS; 2018-11-16)
PROC: 02HK3KZ Insertion of Defibrillator Lead into Right Ventricle, Percutaneous Approach (ICD-10-PCS; 2018-11-16)
DX: T42.4X2A Poisoning by benzodiazepines, intentional self-harm, initial encounter (principal); J96.02 Acute respiratory failure with hypercapnia; J96.01 Acute respiratory failure with hypoxia; I50.23 Acute on chronic systolic (congestive) heart failure; G92 Toxic encephalopathy; E87.1 Hypo-osmolality and hyponatremia; I25.5 Ischemic cardiomyopathy; J44.9 Chronic obstructive pulmonary disease, unspecified; I11.0 Hypertensive heart disease with heart failure; F17.210 Nicotine dependence, cigarettes, uncomplicated; E78.5 Hyperlipidemia, unspecified; I45.81 Long QT syndrome; F32.9 Major depressive disorder, single episode, unspecified; F10.10 Alcohol abuse, uncomplicated; I25.10 Atherosclerotic heart disease of native coronary artery without angina pectoris; I73.9 Peripheral vascular disease, unspecified; I25.2 Old myocardial infarction; Y90.1 Blood alcohol level of 20-39 mg/100 ml; Z79.02 Long term (current) use of antithrombotics/antiplatelets; Z79.82 Long term (current) use of aspirin; Z79.899 Other long term (current) drug therapy
CPT/HCPCS: 31500; 33249; 36005; 36415; 51702; 70450; 71045; 75820; 80053; 80061; 80306; 80307; 81003; 82533; 82553; 82805; 83605; 83735; 83880; 84100; 84443; 84484; 85007; 85025; 85027; 85610; 85730; 93005; 93306; 93640; 93798; 94002; 94003; 94760; 96360; 96365; 96372; C1722; C1777; J0690; J1650; J2060; J2704; J3010; J3411; J3475; J3480; J3490; J7050; J7620; Q9967; S0028

== ENCOUNTER 2019-04-04 15:38 | Emergency (ER) | payer MEDICARE ==
[2019-04-04] MEDS ORDERED: HYDROcodone/Acetaminophen 5/325 mg Tablet ONE (16:23)
[2019-04-04] MEDS ORDERED: Lidocaine 1% (PF) 30 ML VIAL ONE (16:23)
[2019-04-04] MEDS ORDERED: Ondansetron ODT 4 MG TAB ONE (16:23)
--- NOTE | 2019-04-04 16:48 | RAD ---
3 views right hand: 04/04/2019 COMPARISON: None HISTORY: Injury FINDINGS: There is mild contour irregularity at the base of the fifth metacarpal. There is soft tiss ue irregularity at the medial aspect of the distal tip of the index finger. There is also mild soft tissue irregularity involving the lateral aspect at the tip of the fourth finger. There is probable s oft tissue swelling involving the fifth finger. No displaced fracture. No dislocation. IMPRESSION: Findings suggesting distal soft tissue injury involving the index finger and ring finger. There is mild contour irregularity at the base of the fifth metacarpal which could represent an age i ndeterminant buckle type fracture in the proper clinical setting. Clinical correlation is essential.
== END 2019-04-04 19:25 | disposition home or self-care (01) ==
LOC: ERS 15:38
DX: S61.210A Laceration without foreign body of right index finger without damage to nail, initial encounter (principal); S61.212A Laceration without foreign body of right middle finger without damage to nail, initial encounter; S61.214A Laceration without foreign body of right ring finger without damage to nail, initial encounter; I10 Essential (primary) hypertension; E78.5 Hyperlipidemia, unspecified; I25.2 Old myocardial infarction; F41.9 Anxiety disorder, unspecified; Z79.82 Long term (current) use of aspirin; Z79.899 Other long term (current) drug therapy; Z79.891 Long term (current) use of opiate analgesic; W26.8XXA Contact with other sharp object(s), not elsewhere classified, initial encounter
CPT/HCPCS: 12002; J2001; Q0162

== ENCOUNTER 2019-04-12 13:18 | Emergency (ER) | payer MEDICARE | END 2019-04-12 14:00 | disposition home or self-care (01) | LOC: ERS 13:18 | DX: S61.210D Laceration without foreign body of right index finger without damage to nail, subsequent encounter (principal); S61.212D Laceration without foreign body of right middle finger without damage to nail, subsequent encounter; S61.214D Laceration without foreign body of right ring finger without damage to nail, subsequent encounter; I50.9 Heart failure, unspecified; E78.5 Hyperlipidemia, unspecified; I25.2 Old myocardial infarction; F41.9 Anxiety disorder, unspecified; F17.210 Nicotine dependence, cigarettes, uncomplicated; Z79.891 Long term (current) use of opiate analgesic; Z79.82 Long term (current) use of aspirin ==

== ENCOUNTER 2019-04-15 19:17 | Emergency (ER) | payer MEDICARE ==
[2019-04-15] MEDS ORDERED: Bacitracin 1 PK ONE (21:33)
== END 2019-04-15 21:30 | disposition home or self-care (01) ==
LOC: ERS 19:17
DX: S61.210D Laceration without foreign body of right index finger without damage to nail, subsequent encounter (principal); S61.212D Laceration without foreign body of right middle finger without damage to nail, subsequent encounter; S61.214D Laceration without foreign body of right ring finger without damage to nail, subsequent encounter; E78.5 Hyperlipidemia, unspecified; I10 Essential (primary) hypertension; E78.00 Pure hypercholesterolemia, unspecified; I25.2 Old myocardial infarction; F41.9 Anxiety disorder, unspecified; F17.220 Nicotine dependence, chewing tobacco, uncomplicated; Z79.891 Long term (current) use of opiate analgesic; Z79.899 Other long term (current) drug therapy; Z79.82 Long term (current) use of aspirin; X58.XXXD Exposure to other specified factors, subsequent encounter
CPT/HCPCS: 99282

== ENCOUNTER 2020-09-06 10:50 | Inpatient (IN) | payer MEDICARE ==
[2020-09-06 11:49] LABS: #Basophils 0.1 thou/uL (0.0-0.2); #Lymphocytes 0.2 thou/uL (1.20-3.40); #Neutrophils 6.8 thou/uL (1.40-6.50); %Basophils 1.5 % (0.0-1.0); %Eosinophils 0.1 % (0.0-10.0); %Lymphocytes 2.5 % (21.0-51.0); %Monocytes 12.2 % (0.0-10.0); %Neutrophils 83.8 % (42.0-75.0); Hemoglobin 10.3 g/dL (14.0-18.0); Mean Corpuscular Hemoglobin 34.5 pg (27.0-31.0); Mean Corpuscular Volume 98.4 fL (78.0-98.0); Mean Platelet Volume 9.4 fL (7.4-10.4); Platelet Count 63 thou/uL (130-400); RBC Distribution Width 13.8 % (11.5-14.5); White Blood Cell (WBC) Count 8.2 thou/uL (4.8-10.8)
[2020-09-06 12:08] LABS: ALT (SGPT) 50 U/L (8-55); AST (SGOT) 50 U/L (5-34); Albumin 4.1 g/dL (3.4-4.8); Alkaline Phosphatase 144 U/L (40-110); Anion Gap 18 mmol/L (10-20); BUN (Urea Nitrogen) 15 mg/dL (8.4-25.7); Bilirubin, Total 2.8 mg/dL (0.2-1.2); Calc. Creatinine Clearance 0 mL/min (70-130); Calcium 8.6 mg/dL (7.8-10.44); Carbon Dioxide 26 mmol/L (23-31); Chloride 80 mmol/L (98-107); Globulin 2.5 g/dL (2.4-3.5); Glucose 136 mg/dL (80-115); Protein, Total 6.6 g/dL (5.8-8.1); Sodium 120 mmol/L (136-145)
--- NOTE | 2020-09-06 12:33 | RAD ---
EXAM: Two views chest PROVIDED CLINICAL HISTORY: Syncopal episode and weakness. COMPARISON: 04/30/2019 FINDINGS: Single lead left subclavian AICD device is again noted in place. Cardiac silhouette is enlarged. Pulm onary vasculature is mildly increased. Calcified granuloma again overlies right upper lung zone. Lungs are otherwise clear. No consolidation or pleural fluid is seen. Nodular appearing density is se en throughout at the right lung base thought to most likely be related to superimposition of structures. Multilevel degenerative changes are seen in the thoracic spine. Vascular calcifications a re seen in the thoracic aorta. IMPRESSION: Cardiomegaly and mild pulmonary vascular congestion. Correlation for mild CHF is recommended.
[2020-09-06 12:50] LABS: CK (CPK) 71 U/L (30-200); Lipase 25 U/L (8-78)
[2020-09-06] MEDS ORDERED: Furosemide 40 MG/4 ML VIAL ONE (13:18)
[2020-09-06 15:06] LABS: Troponin I 0.024 ng/mL (< 0.028)
[2020-09-06] MEDS ORDERED: Ondansetron PF 4 MG/2 ML Vial IVP PRN (15:19)
[2020-09-06] MEDS ORDERED: Acetaminophen 325 MG TAB PO PRN (15:19)
--- NOTE | 2020-09-06 15:54 | CON ---
DATE OF CONSULTATION: REASON FOR CONSULTATION: Hyponatremia. HISTORY OF PRESENT ILLNESS: This is a very pleasant 70-year-old gentleman, who presented to the hospital with weakness, was noted to have a sodium of 120. I was consulted. The patient drinks beer excessively and excessive amount of fluids. The patient denies any symptoms related to hyponatremia. PAST MEDICAL HISTORY: Significant for hypertension, coronary artery disease, cardiomyopathy, peripheral vascular disease. SOCIAL HISTORY: FAMILY HISTORY: Negative for ESRD. ALLERGIES: REVIEWED. HOME MEDICATIONS: List reviewed. HOSPITAL MEDICATIONS: List reviewed. REVIEW OF SYSTEMS: A 15-point review of system was performed, negative except for positives noted above. HEENT: Eyes intact, no diplopia. Ears: No hearing loss or earache. Nose: No discharge or bleeding. Chest: No cough or phlegm. Abdomen: No nausea or vomiting. Genitourinary: No hematuria. No Bailey catheter. Musculoskeletal: No low back pain. No joint swelling or pain. Neurological: No syncope. No seizures. Skin: No complaints of rash or itching. Psychiatric: No depression. Constitutional: No weight loss or loss of appetite. PHYSICAL EXAMINATION: General: The patient is awake and alert. Vital Signs: Reviewed. HEENT: Head normocephalic and atraumatic. Eyes intact, no ulcers. Nose intact, no ulcers. Ears intact, no ulcers. Neck: Supple. No JVD. Chest: Symmetrical and clear. Cardiovascular: Shows S1 and S2, no rub, no murmur. Gastrointestinal: Abdomen is soft, bowel sounds positive. Extremities: Show no edema or ulcers. Skin: Shows no rash or petechiae. Musculoskeletal: Shows no joint swelling or stiffness. Genitourinary: Shows no Bailey or CVA tenderness. Neurologic: Motor intact. Cranial nerves intact. LABORATORY DATA: Show hemoglobin is 10.3. Sodium 120. ASSESSMENT AND RECOMMENDATION: 1. Hyponatremia most likely because of beer potomania. Recommend fluid restriction. We will recheck sodium every 3 to 4 hours. 2. Congestive heart failure. 3. Anemia, stable. 4. Chronic kidney disease stage 2, stable. No indication for dialysis. Job ID: [id number]
[2020-09-06 16:35] LABS: Anion Gap 16 mmol/L (10-20); BUN (Urea Nitrogen) 15 mg/dL (8.4-25.7); Calc. Creatinine Clearance 0 mL/min (70-130); Calcium 8.7 mg/dL (7.8-10.44); Carbon Dioxide 25 mmol/L (23-31); Chloride 80 mmol/L (98-107); Glucose 130 mg/dL (80-115); Potassium 3.9 mmol/L (3.5-5.1)
[2020-09-06 16:43] LABS: Sodium 117 mmol/L (136-145)
[2020-09-06] MEDS ORDERED: Diazepam 5 MG TAB PO PRN (16:48)
[2020-09-06] MEDS ORDERED: Thiamine HCl 200 MG/2 ML VIAL IM SCH (17:00)
[2020-09-06] MEDS ORDERED: Diazepam 5 MG TAB PO SCH (17:00)
[2020-09-06 18:49] LABS: Troponin I 0.031 ng/mL (< 0.028)
--- NOTE | 2020-09-06 19:45 | PDOC.HHP ---
Hospitalist JER JOEL, Passed out History of Present Illness: Patient is 70 year-old male with PMH of chronic systolic CHF (AICD in place), CAD, HTN, HLD, and alcohol abuse who presents to the ED with SOB and syncope. Patient's says patient was laying on bed last night, he suddenly started vomiting and was unresponsive for about 2-3 minutes, no seizure like activities. Patient felt better shortly after so he did not come to the ED. Patient reports SOB for the past few days. He also has chronic cough which he think is worse. Has chronic leg swelling which is stable. Has orthopnea sometimes. He denies chest pain. No recent AICD shock. Allergies/Adverse Reactions: Allergy/AdvReac Type Severity Reaction Status Date / Time No Known Allergies Allergy Verified 05/11/18 03:45 Home Medications: Medication Instructions Recorded Confirmed Type Clopidogrel Bisulfate [Plavix] 75 mg PO QAM #90 tab 05/13/18 11/14/18 Rx Furosemide [Lasix] 40 mg PO DAILY #90 tab 05/13/18 11/14/18 Rx Nitroglycerin [Nitrostat] 0.4 mg SL Q5MIN PRN #30 tab 05/13/18 11/14/18 Rx Atorvastatin Calcium [Lipitor] 40 mg PO HS #30 tab 11/21/18 Rx Carvedilol [Coreg] 6.25 mg PO TID #90 tab 11/21/18 Rx Cephalexin [Keflex] 500 mg PO QID #10 cap 11/21/18 Rx Lisinopril [Zestril] 5 mg PO DAILY #30 tab 11/21/18 11/14/18 Rx Magnesium Oxide 400 mg PO DAILY tab 11/21/18 Rx Nicotine [Nicoderm CQ] 21 mg TOP Q24HR patch 11/21/18 Rx Thiamine 100 mg PO DAILY tab 11/21/18 Rx Past History: PMhx: chronic systolic CHF (AICD in place), CAD, HTN, HLD, and alcohol abuse PShx: AICD placement FHs: Mother: CHF, DM Social hx: former smoker. Has been drinking 8-18 beer per day for many years. Denies drug use. Hospitalist JER MENJIVAR Constitutional: denies: fever, chills Eyes: reports: vision change (intermittent, chronic) ENT: denies: throat pain Respiratory: reports: cough, shortness of breath Cardiovascular: reports: orthopnea. denies: chest pain Gastrointestinal: reports: nausea, vomiting. denies: melena, hematochezia Genitourinary: denies: dysuria, frequency Musculoskeletal: reports: back pain (chronic) Skin: denies: rash Other: Negative for TAYLOR Hospitalist Exam Vitals: Vital Signs (12 hours) Temp Pulse Resp BP Pulse Ox 09/06/20 18:53 98.2 F 81 20 101/69 96 General Appearance: NAD, awake alert Eye: PERRL ENT: moist mucosa Neck: JVD Heart: RRR, no murmur Respiratory: no tachypnea Respiratory - other findings: crackles on the RLL otherwise CTAB Gastrointestinal: soft, non-tender, non-distended, normal bowel sounds Extremities - other findings: 3+ edema on the LE bilaterally Skin - other findings: face appears a littel flushed Neurological: normal sensation to touch, no weakness Neurological - other findings: no facial droop, no slurred speech, has decreased hearing Musculoskeletal: normal strength Psychiatric: A&O x 3 Hospitalist Results Result Diagrams: 09/06/20 11:31 09/06/20 14:23 Lab results: Laboratory Last Values WBC 8.2 thou/uL (4.8-10.8) 09/06/20 11:31 RBC 3.00 mill/uL (4.70-6.10) L 09/06/20 11:31 Hgb 10.3 g/dL (14.0-18.0) L 09/06/20 11:31 Hct 29.5 % (42.0-52.0) L 09/06/20 11:31 MCV 98.4 fL (78.0-98.0) H 09/06/20 11:31 MCH 34.5 pg (27.0-31.0) H 09/06/20 11:31 MCHC 35.0 g/dL (32.0-36.0) 09/06/20 11:31 RDW 13.8 % (11.5-14.5) 09/06/20 11:31 Plt Count 63 thou/uL (130-400) L 09/06/20 11:31 MPV 9.4 fL (7.4-10.4) 09/06/20 11:31 Neutrophils % 83.8 % (42.0-75.0) H 09/06/20 11:31 Lymphocytes % 2.5 % (21.0-51.0) L 09/06/20 11:31 Monocytes % 12.2 % (0.0-10.0) H 09/06/20 11:31 Eosinophils % 0.1 % (0.0-10.0) 09/06/20 11: Basophils % 1.5 % (0.0-1.0) H 09/06/20 11:31 Neutrophils # 6.8 thou/uL (1.40-6.50) H 09/06/20 11:31 Lymphocytes # 0.2 thou/uL (1.20-3.40) L 09/06/20 11:31 Monocytes # 1.0 thou/uL (0.11-0.59) H 09/06/20 11: Eosinophils # 0.0 thou/uL (0.0-0.7) 09/06/20 11: Basophils # 0.1 thou/uL (0.0-0.2) 09/06/20 11:31 Sodium 117 mmol/L (136-145) L* 09/06/20 14:23 Potassium 3.9 mmol/L (3.5-5.1) 09/06/20 14:23 Chloride 80 mmol/L (98-107) L 09/06/20 14:23 Carbon Dioxide 25 mmol/L (23-31) 09/06/20 14:23 Anion Gap 16 mmol/L (10-20) 09/06/20 14:23 BUN 15 mg/dL (8.4-25.7) 09/06/20 14:23 Creatinine 0.90 mg/dL (0.7-1.3) 09/06/20 14:23 Estimated GFR (MDRD) 84 09/06/20 14:23 Glucose 130 mg/dL (80-115) H 09/06/20 14:23 POC Glucose 168 mg/dL (70-100) H 09/06/20 18:49 Calcium 8.7 mg/dL (7.8-10.44) 09/06/20 14:23 Total Bilirubin 2.8 mg/dL (0.2-1.2) H 09/06/20 11:31 AST 50 U/L (5-34) H 09/06/20 11:31 ALT 50 U/L (8-55) 09/06/20 11:31 Alkaline Phosphatase 144 U/L (40-110) H 09/06/20 11:31 Creatine Kinase 71 U/L (30-200) 09/06/20 11:31 Troponin I 0.031 ng/mL (< 0.028) H 09/06/20 17:51 B-Natriuretic Peptide 2722.4 pg/mL (0-100) H 09/06/20 11:29 Serum Total Protein 6.6 g/dL (5.8-8.1) 09/06/20 11:31 Albumin 4.1 g/dL (3.4-4.8) 09/06/20 11:31 Globulin 2.5 g/dL (2.4-3.5) 09/06/20 11:31 Albumin/Globulin Ratio 1.6 g/dL (1.2-2.2) 09/06/20 11:31 Lipase 25 U/L (8-78) 09/06/20 11:31 Chest x-ray Status: image reviewed by me Additional Comments: EXAM: Two views chest PROVIDED CLINICAL HISTORY: Syncopal episode and weakness. COMPARISON: 04/30/2019 FINDINGS: Single lead left subclavian AICD device is again noted in place. Cardiac silhouette is enlarged. Pulmonary vasculature is mildly increased. Calcified granuloma again overlies right upper lung zone. Lungs are otherwise clear. No consolidation or pleural fluid is seen. Nodular appearing density is seen throughout at the right lung base thought to most likely be related to superimposition of structures. Multilevel degenerative changes are seen in the thoracic spine. Vascular calcifications are seen in the thoracic aorta. IMPRESSION: Cardiomegaly and mild pulmonary vascular congestion. Correlation for mild CHF is recommended. Hospitalist H&P A/P (1) Acute on chronic systolic (congestive) heart failure Code(s): I50.23 - ACUTE ON CHRONIC SYSTOLIC (CONGESTIVE) HEART FAILURE Status: Acute Assessment and Plan: Patient has signs and symptoms of volume overload. BNP level highly elevated. CXR showed mild congestion. Spo2 in the low 90's on RA. Plan: -O2 supplement prn -I&O, daily weight -Lasix 40 mg iv bid (2) Syncope Code(s): R55 - SYNCOPE AND COLLAPSE Status: Acute Assessment and Plan: Family report, patient had a syncopal episode lasts night. No seizure like activities. EKG showed NSR. Plan: -Telemetry -Echo -AICD interrogation (3) Hyponatremia Code(s): E87.1 - HYPO-OSMOLALITY AND HYPONATREMIA Status: Acute Assessment and Plan: Patient has hx of chronic hyponatremia (basline 125-130), his level today is lower than baseline. Plan: -fluid restriction per nephrology recs -nephrology consulted (4) Alcohol abuse Code(s): F10.10 - ALCOHOL ABUSE, UNCOMPLICATED Status: Chronic Assessment and Plan: Patient is a heavy drinker. Las drink was last night. Plan: -ASE protocol -monitor for withdrawal (5) Thrombocytopenia Code(s): D69.6 - THROMBOCYTOPENIA, UNSPECIFIED Status: Acute Assessment and Plan: Patient has chronic thrombocytopenia, however level is lower than his baseline today. Plan: -repeat lab in AM
[2020-09-06] MEDS ORDERED: Sodium Chloride 3% 100 ML IVPB SCH ×2 (20:00→21:00)
--- NOTE | 2020-09-06 20:35 | PDOC.BPN ---
- Brief Progress Note Encounter Date: 09/06/20 Around 6:45 PM I was notified by nurse that shortly after patient arrived to the floor from the ED, he started having jerking movements, his face was flushed and was unresponsive for a short time. He did not seem to have postictal state. On my arrival to the floor, few minutes after his seizure episodes patient was alert and oriented x3, and was following commands. His Seizure episodes could be from his hyponatremia and/or alcohol withdrawal. Plan: -I talked to . We will start patient on 3% hypertonic saline. Will check BMP in 2 hrs. -cont ASE protocol
[2020-09-06 20:40] VITALS: BMI 30.2
[2020-09-06 22:21] LABS: SARS-CoV-2 PCR by NAA Not Detected (NotDetected)
[2020-09-06 22:45] LABS: Anion Gap 15 mmol/L (10-20); BUN (Urea Nitrogen) 16 mg/dL (8.4-25.7); Calc. Creatinine Clearance 105 mL/min (70-130); Calcium 8.4 mg/dL (7.8-10.44); Carbon Dioxide 25 mmol/L (23-31); Chloride 85 mmol/L (98-107); Glucose 123 mg/dL (80-115); Potassium 3.6 mmol/L (3.5-5.1); Sodium 121 mmol/L (136-145)
[2020-09-06 23:01] LABS: Troponin I 0.041 ng/mL (< 0.028)
[2020-09-07] MEDS ORDERED: ADMIXTURE FEE IVPB SCH (00:30)
[2020-09-07] MEDS ORDERED: SODIUM CHLORIDE 3% IVPB SCH (00:30)
[2020-09-07] MEDS ORDERED: Diazepam 5 MG TAB PO PRN (04:00)
[2020-09-07 05:08] LABS: Anion Gap 13 mmol/L (10-20); BUN (Urea Nitrogen) 15 mg/dL (8.4-25.7); Calc. Creatinine Clearance 110 mL/min (70-130); Calcium 8.2 mg/dL (7.8-10.44); Carbon Dioxide 26 mmol/L (23-31); Chloride 86 mmol/L (98-107); Glucose 103 mg/dL (80-115); Potassium 3.3 mmol/L (3.5-5.1); Sodium 122 mmol/L (136-145)
[2020-09-07 05:33] LABS: Band 10 % (5-11); Hemoglobin 9.5 g/dL (14.0-18.0); Lymphocytes 20 % (21-51); MDiff Complete? YES; Mean Corpuscular HGB CONC 34.9 g/dL (32.0-36.0); Mean Corpuscular Hemoglobin 34.1 pg (27.0-31.0); Mean Corpuscular Volume 97.7 fL (78.0-98.0); Mean Platelet Volume 9.8 fL (7.4-10.4); Monocytes 7 % (0-10); Neutrophil 63 % (42-75); Platelet Count 65 thou/uL (130-400); Platelet Morphology Comment Appears Decreased; RBC Distribution Width 14.1 % (11.5-14.5); Red Blood Cell (RBC) Count 2.78 mill/uL (4.70-6.10); White Blood Cell (WBC) Count 4.7 thou/uL (4.8-10.8)
[2020-09-07] MEDS ORDERED: Furosemide 40 MG/4 ML VIAL SLOW IVP SCH (06:00)
[2020-09-07 06:35] LABS: Anion Gap 13 mmol/L (10-20); BUN (Urea Nitrogen) 15 mg/dL (8.4-25.7); Calc. Creatinine Clearance 108 mL/min (70-130); Calcium 8.2 mg/dL (7.8-10.44); Carbon Dioxide 27 mmol/L (23-31); Chloride 85 mmol/L (98-107); Glucose 104 mg/dL (80-115); Potassium 3.3 mmol/L (3.5-5.1); Sodium 122 mmol/L (136-145)
[2020-09-07] MEDS: Thiamine 100 MG TAB PO SCH (08:15)
[2020-09-07] MEDS: Multivitamin W/ Minerals 1 TAB PO SCH (08:15)
[2020-09-07] MEDS: Magnesium Oxide 400 MG TAB PO SCH (08:15)
[2020-09-07] MEDS: Folic Acid 1 MG TAB PO SCH (08:15)
[2020-09-07] MEDS ORDERED: Thiamine 100 MG TAB PO SCH (09:00)
[2020-09-07] MEDS ORDERED: Folic Acid 1 MG TAB PO SCH (09:00)
[2020-09-07] MEDS ORDERED: FLU VACC QS2020-21(65YR UP)/PF 240 MCG/0.7 ML SYRINGE IM ONE (09:00)
[2020-09-07 09:50] LABS: Anion Gap 14 mmol/L (10-20); BUN (Urea Nitrogen) 15 mg/dL (8.4-25.7); Calc. Creatinine Clearance 105 mL/min (70-130); Calcium 8.3 mg/dL (7.8-10.44); Carbon Dioxide 25 mmol/L (23-31); Chloride 85 mmol/L (98-107); Glucose 134 mg/dL (80-115); Magnesium 1.4 mg/dL (1.6-2.6); Potassium 3.2 mmol/L (3.5-5.1); Sodium 121 mmol/L (136-145)
--- NOTE | 2020-09-07 10:27 | PRG ---
DATE OF SERVICE: 09/07/2020 SUBJECTIVE: A 70-year-old gentleman, being seen for hyponatremia. The patient denied any nausea, vomiting, or chest pain. PHYSICAL EXAMINATION: General: The patient is awake and alert. Vital Signs: Afebrile, pulse 77, breathing at 16, blood pressure 122/80. HEENT: Head normocephalic and atraumatic. Eyes intact, no ulcers. Nose intact, no ulcers. Ears intact, no ulcers. Neck: Supple. No JVD. Chest: Symmetrical and clear. Cardiovascular: Shows S1 and S2, no rub, no murmur. Gastrointestinal: Abdomen is soft, bowel sounds positive. Extremities: Show no edema or ulcers. Skin: Shows no rash or petechiae. Musculoskeletal: Shows no joint swelling or stiffness. Genitourinary: Shows no Bailey or CVA tenderness. Neurologic: Motor intact. Cranial nerves intact. LABORATORY DATA: Showed hemoglobin 9.5. Sodium is 122. ASSESSMENT AND RECOMMENDATIONS: 1. Hyponatremia, improved. We will recommend 800 mL fluid restriction. The patient is nonoliguric. 2. Alcohol abuse. 3. Hypokalemia. Recommend potassium replacement. 4. Anemia, stable. Medication based on GFR, appropriate. Job ID: [id number]
[2020-09-07] MEDS ORDERED: Potassium Chloride 20 MEQ TAB PO SCH (11:00)
[2020-09-07 13:29] LABS: Anion Gap 15 mmol/L (10-20); BUN (Urea Nitrogen) 17 mg/dL (8.4-25.7); Calc. Creatinine Clearance 105 mL/min (70-130); Calcium 8.5 mg/dL (7.8-10.44); Carbon Dioxide 25 mmol/L (23-31); Chloride 86 mmol/L (98-107); Glucose 146 mg/dL (80-115); Potassium 3.6 mmol/L (3.5-5.1); Sodium 122 mmol/L (136-145)
[2020-09-07 18:06] LABS: AST (SGOT) 38 U/L (5-34); Anion Gap 15 mmol/L (10-20); BUN (Urea Nitrogen) 16 mg/dL (8.4-25.7); Calc. Creatinine Clearance 109 mL/min (70-130); Calcium 8.5 mg/dL (7.8-10.44); Carbon Dioxide 25 mmol/L (23-31); Chloride 87 mmol/L (98-107); Glucose 132 mg/dL (80-115); Sodium 123 mmol/L (136-145)
[2020-09-07] MEDS ORDERED: Tolvaptan 15 MG TAB PO SCH (18:45)
[2020-09-07] MEDS ORDERED: TOLVAPTAN 30 MG TAB PO SCH (19:00)
--- NOTE | 2020-09-07 19:22 | PDOC.HOSPP ---
- Subjective Subjective: Patient was seen examined at bedside. No acute events overnight. His sodium trended up nicely. No evidence of seizure activity. Discussed with his at bedside. Patient was counseled extensively with regard to alcohol cessation. - Objective Vital Signs & Weight: Vital Signs (12 hours) Temp Pulse Pulse Pulse Resp BP BP 09/07/20 16:00 98.4 F 84 16 09/07/20 11:01 97.5 F L 95 82 87 18 118/71 157/63 H 09/07/20 08:00 97.9 F 80 18 BP Pulse Ox 09/07/20 16:00 99/63 99 09/07/20 11:01 107/59 L 95 09/07/20 08:00 122/80 94 L Weight Weight 211 lb 1.6 oz Result Diagrams: 09/07/20 04:03 09/07/20 17:13 Radiology Reviewed by me: Yes EKG Reviewed by me: Yes Hospitalist ROS - Medication Medications: Active Medications Generic Name Dose Route Start Last Admin Trade Name Freq PRN Reason Stop Dose Admin Folic Acid 1 mg 09/07/20 09:00 09/07/20 08:15 Folic Acid 1 Mg Tab PO 1 mg DAILY MEDARDO Administration Magnesium Sulfate 1 gm/ Sodium 102 mls @ 102 mls/hr 09/06/20 17:00 09/07/20 18:41 Chloride IVPB 102 mls 1700 MEDARDO Administration Iron/Minerals/Multivitamins 1 tab 09/07/20 09:00 09/07/20 08:15 Multivitamin W/ Minerals 1 Tab PO 1 tab DAILY MEDARDO Administration Magnesium Oxide 400 mg 09/07/20 09:00 09/07/20 08:15 Magnesium Oxide 400 Mg Tab PO 400 mg DAILY MEDARDO Administration Thiamine HCl 100 mg 09/07/20 09:00 09/07/20 08:15 Thiamine 100 Mg Tab PO 100 mg DAILY MEDARDO Administration Tolvaptan 15 mg 09/07/20 19:00 09/07/20 19:03 Tolvaptan 30 Mg Tab PO 09/07/20 21:00 15 mg NOW MEDARDO Administration Hospitalist Exam Vitals: Vital Signs (12 hours) Temp Pulse Pulse Pulse Resp BP BP 09/07/20 16:00 98.4 F 84 16 09/07/20 11:01 97.5 F L 95 82 87 18 118/71 157/63 H 09/07/20 08:00 97.9 F 80 18 BP Pulse Ox 09/07/20 16:00 99/63 99 09/07/20 11:01 107/59 L 95 09/07/20 08:00 122/80 94 L Weight Weight 211 lb 1.6 oz General Appearance: NAD Eye: PERRL ENT: normocephalic atraumatic Neck: supple Heart: RRR Respiratory: CTAB Gastrointestinal: soft Skin: normal turgor Neurological: cranial nerve grossly intact Musculoskeletal: normal tone Psychiatric: normal affect, normal behavior, A&O x 3 Hosp A/P - Plan (1) Acute on chronic systolic (congestive) heart failure Code(s): I50.23 - ACUTE ON CHRONIC SYSTOLIC (CONGESTIVE) HEART FAILURE Status: Acute Assessment and Plan: He is appears euvolemic, will restart his home medication medications (2) Syncope Code(s): R55 - SYNCOPE AND COLLAPSE Status: Acute Assessment and Plan: Echo showed EF 25%, which improved from 2019, 15% at that time, pending AICD interrogation (3) Hyponatremia Code(s): E87.1 - HYPO-OSMOLALITY AND HYPONATREMIA Status: Acute Assessment and Plan: s/p hypertonic saline. Na trending up appropriately. Nephrology started on Tolvaptan and fluid restriction (4) Alcohol abuse Code(s): F10.10 - ALCOHOL ABUSE, UNCOMPLICATED Status: Chronic Assessment and Plan: Patient is a heavy drinker. Las drink was last 09/06. Plan: -[facility] protocol -monitor for withdrawal (5) Thrombocytopenia Code(s): D69.6 - THROMBOCYTOPENIA, UNSPECIFIED Status: Acute Assessment and Plan: Follow daily CBC, no evidence of bleeding. likely d/t chronic alcohol used.
[2020-09-07] MEDS: Atorvastatin Calcium 40 MG TAB PO SCH (22:08)
[2020-09-07] MEDS: busPIRone HCl 10 MG TAB PO SCH (22:08)
[2020-09-07 22:43] LABS: Chloride 88 mmol/L (98-107); Potassium 3.8 mmol/L (3.5-5.1); Sodium 123 mmol/L (136-145)
[2020-09-07 22:44] LABS: Calcium 8.3 mg/dL (7.8-10.44); Glucose 120 mg/dL (80-115)
[2020-09-07 22:46] LABS: Anion Gap 13 mmol/L (10-20); Carbon Dioxide 26 mmol/L (23-31)
[2020-09-07 22:48] LABS: BUN (Urea Nitrogen) 17 mg/dL (8.4-25.7); Calc. Creatinine Clearance 111 mL/min (70-130)
[2020-09-08 05:18] LABS: Band 2 % (5-11); Eosinophils 1 % (0-10); Hemoglobin 9.8 g/dL (14.0-18.0); Lymphocytes 19 % (21-51); MDiff Complete? YES; Mean Corpuscular HGB CONC 34.8 g/dL (32.0-36.0); Mean Corpuscular Hemoglobin 34.6 pg (27.0-31.0); Mean Corpuscular Volume 99.4 fL (78.0-98.0); Mean Platelet Volume 9.6 fL (7.4-10.4); Monocytes 14 % (0-10); Neutrophil 64 % (42-75); Platelet Count 72 thou/uL (130-400); Platelet Morphology Comment Appears Decreased; RBC Distribution Width 14.5 % (11.5-14.5); Red Blood Cell (RBC) Count 2.83 mill/uL (4.70-6.10); White Blood Cell (WBC) Count 5.3 thou/uL (4.8-10.8)
[2020-09-08 06:36] LABS: Anion Gap 14 mmol/L (10-20); BUN (Urea Nitrogen) 14 mg/dL (8.4-25.7); Calc. Creatinine Clearance 121 mL/min (70-130); Calcium 8.6 mg/dL (7.8-10.44); Carbon Dioxide 26 mmol/L (23-31); Chloride 91 mmol/L (98-107); Glucose 112 mg/dL (80-115); Potassium 3.7 mmol/L (3.5-5.1); Sodium 127 mmol/L (136-145)
[2020-09-08] MEDS: Clopidogrel Bisulfate 75 MG TAB PO SCH (08:34)
[2020-09-08] MEDS: Thiamine 100 MG TAB PO SCH (08:34)
[2020-09-08] MEDS: Multivitamin W/ Minerals 1 TAB PO SCH (08:34)
[2020-09-08] MEDS: Carvedilol 6.25 MG TAB PO SCH ×3 (08:34→17:38)
[2020-09-08] MEDS: busPIRone HCl 10 MG TAB PO SCH ×2 (08:34→21:59)
[2020-09-08] MEDS: Magnesium Oxide 400 MG TAB PO SCH (08:35)
[2020-09-08] MEDS: Folic Acid 1 MG TAB PO SCH (08:35)
[2020-09-08] MEDS: FLUoxetine HCl 20 MG CAP PO SCH (08:36)
--- NOTE | 2020-09-08 11:55 | PRG ---
DATE OF SERVICE: 09/08/2020 SUBJECTIVE: A 70-year-old gentleman being seen for hyponatremia. The patient denied nausea, vomiting, or chest pain. OBJECTIVE: GENERAL: The patient is awake and alert. Vital signs: Reviewed. HEENT: Head normocephalic and atraumatic. Eyes intact, no ulcers. Nose intact, no ulcers. Ears intact, no ulcers. Neck: Supple. No JVD. Chest: Symmetrical and clear. Cardiovascular: Shows S1 and S2, no rub, no murmur. Gastrointestinal: Abdomen is soft, bowel sounds positive. Extremities: Show no edema or ulcers. Skin: Shows no rash or petechiae. Musculoskeletal: Shows no joint swelling or stiffness. Genitourinary: Shows no Bailey or CVA tenderness. Neurologic: Motor intact. Cranial nerves intact. LABORATORY DATA: Show hemoglobin 9.8, sodium 127. ASSESSMENT AND RECOMMENDATIONS: Hyponatremia, improved. Continue fluid restriction . Anemia, stable. Medication based on GFR appropriate. Job ID: [id number]
--- NOTE | 2020-09-08 16:04 | PDOC.HOSPP ---
- Subjective Subjective: Patient was seen examined at bedside. No acute events overnight. His sodium level trended up nicely from 23 - 1 24 overnight. Patient was given a dose of tolvaptan yesterday. Discussed with Dr. Jade, will continue with fluid restriction today, repeat labs in AM. - Objective Vital Signs & Weight: Vital Signs (12 hours) Temp Pulse Pulse Pulse Resp BP BP 09/08/20 12:08 110/66 09/08/20 11:40 97.5 F L 80 18 09/08/20 11:02 90 75 103/69 09/08/20 07:24 98.1 F 78 18 BP BP BP Pulse Ox Pulse Ox Pulse Ox 09/08/20 12:08 09/08/20 11:40 121/70 98 09/08/20 11:02 109/74 92 L 95 09/08/20 07:24 108/73 94 L Weight Weight 205 lb 4.8 oz Result Diagrams: 09/08/20 03:26 09/08/20 06:02 Hospitalist ROS - Medication Medications: Active Medications Generic Name Dose Route Start Last Admin Trade Name Freq PRN Reason Stop Dose Admin Atorvastatin Calcium 40 mg 09/07/20 21:00 09/07/20 22:08 Atorvastatin Calcium 40 Mg Tab PO 40 mg HS MEDARDO Administration Buspirone HCl 10 mg 09/07/20 21:00 09/08/20 08:34 Buspirone Hcl 10 Mg Tab PO 10 mg BID MEDARDO Administration Carvedilol 12.5 mg 09/08/20 08:00 09/08/20 12:08 Carvedilol 6.25 Mg Tab PO 12.5 mg TID-WM MEDARDO Administration Clopidogrel Bisulfate 75 mg 09/08/20 09:00 09/08/20 08:34 Clopidogrel Bisulfate 75 Mg Tab PO 75 mg QAM MEDARDO Administration Fluoxetine HCl 40 mg 09/08/20 09:00 09/08/20 08:36 Fluoxetine Hcl 20 Mg Cap PO 40 mg DAILY MEDARDO Administration Folic Acid 1 mg 09/07/20 09:00 09/08/20 08:35 Folic Acid 1 Mg Tab PO 1 mg DAILY MEDARDO Administration Magnesium Sulfate 1 gm/ Sodium 102 mls @ 102 mls/hr 09/06/20 17:00 09/07/20 18:41 Chloride IVPB 102 mls 1700 MEDARDO Administration Iron/Minerals/Multivitamins 1 tab 09/07/20 09:00 09/08/20 08:34 Multivitamin W/ Minerals 1 Tab PO 1 tab DAILY MEDARDO Administration Magnesium Oxide 400 mg 09/07/20 09:00 09/08/20 08:35 Magnesium Oxide 400 Mg Tab PO 400 mg DAILY MEDARDO Administration Thiamine HCl 100 mg 09/07/20 09:00 09/08/20 08:34 Thiamine 100 Mg Tab PO 100 mg DAILY MEDARDO Administration Hospitalist Exam Vitals: Vital Signs (12 hours) Temp Pulse Pulse Pulse Resp BP BP 09/08/20 12:08 110/66 09/08/20 11:40 97.5 F L 80 18 09/08/20 11:02 90 75 103/69 09/08/20 07:24 98.1 F 78 18 BP BP BP Pulse Ox Pulse Ox Pulse Ox 09/08/20 12:08 09/08/20 11:40 121/70 98 09/08/20 11:02 109/74 92 L 95 09/08/20 07:24 108/73 94 L Weight Weight 205 lb 4.8 oz General Appearance: NAD Eye: PERRL ENT: normocephalic atraumatic Neck: supple Heart: RRR Respiratory: CTAB Gastrointestinal: soft, non-tender Extremities: no cyanosis Skin: normal turgor Neurological: cranial nerve grossly intact Musculoskeletal: normal tone Psychiatric: normal affect, normal behavior, A&O x 3 Hosp A/P - Plan (1) Acute on chronic systolic (congestive) heart failure Code(s): I50.23 - ACUTE ON CHRONIC SYSTOLIC (CONGESTIVE) HEART FAILURE Status: Acute Assessment and Plan: He is appears euvolemic, resumed home meds (2) Syncope Code(s): R55 - SYNCOPE AND COLLAPSE Status: Acute Assessment and Plan: Echo showed EF 25%, which improved from 2019, 15% at that time, pending AICD interrogation (3) Hyponatremia Code(s): E87.1 - HYPO-OSMOLALITY AND HYPONATREMIA Status: Acute Assessment and Plan: s/p hypertonic saline. Na trending up appropriately. s/p Tolvaptan x 1 cont fluid restriction. rpt BMP in AM (4) Alcohol abuse Code(s): F10.10 - ALCOHOL ABUSE, UNCOMPLICATED Status: Chronic Assessment and Plan: Patient is a heavy drinker. Las drink was last 09/06. Plan: -ASE protocol -monitor for withdrawal (5) Thrombocytopenia Code(s): D69.6 - THROMBOCYTOPENIA, UNSPECIFIED Status: Acute Assessment and Plan: Follow daily CBC, no evidence of bleeding. likely d/t chronic alcohol used.
[2020-09-08] MEDS ORDERED: Carvedilol 6.25 MG TAB PO SCH (21:00)
[2020-09-08] MEDS: Atorvastatin Calcium 40 MG TAB PO SCH (21:59)
[2020-09-09 04:55] LABS: #Basophils 0.1 thou/uL (0.0-0.2); #Eosinphils 0.1 thou/uL (0.0-0.7); #Monocytes 0.8 thou/uL (0.11-0.59); #Neutrophils 3.4 thou/uL (1.40-6.50); %Eosinophils 1.7 % (0.0-10.0); %Lymphocytes 18.4 % (21.0-51.0); %Monocytes 14.5 % (0.0-10.0); %Neutrophils 64.3 % (42.0-75.0); Hemoglobin 9.5 g/dL (14.0-18.0); Mean Corpuscular HGB CONC 33.2 g/dL (32.0-36.0); Mean Corpuscular Hemoglobin 33.4 pg (27.0-31.0); Mean Platelet Volume 9.5 fL (7.4-10.4); Platelet Count 85 thou/uL (130-400); RBC Distribution Width 14.7 % (11.5-14.5); Red Blood Cell (RBC) Count 2.84 mill/uL (4.70-6.10); White Blood Cell (WBC) Count 5.3 thou/uL (4.8-10.8)
[2020-09-09 04:56] LABS: Anion Gap 13 mmol/L (10-20); BUN (Urea Nitrogen) 12 mg/dL (8.4-25.7); Calc. Creatinine Clearance 114 mL/min (70-130); Calcium 8.6 mg/dL (7.8-10.44); Carbon Dioxide 28 mmol/L (23-31); Chloride 94 mmol/L (98-107); Glucose 119 mg/dL (80-115); Potassium 3.7 mmol/L (3.5-5.1); Sodium 131 mmol/L (136-145)
[2020-09-09] MEDS: FLUoxetine HCl 20 MG CAP PO SCH (08:15)
[2020-09-09] MEDS: Clopidogrel Bisulfate 75 MG TAB PO SCH (08:15)
[2020-09-09] MEDS: Thiamine 100 MG TAB PO SCH (08:15)
[2020-09-09] MEDS: Folic Acid 1 MG TAB PO SCH (08:15)
[2020-09-09] MEDS: busPIRone HCl 10 MG TAB PO SCH ×2 (08:15→20:11)
[2020-09-09] MEDS: Magnesium Oxide 400 MG TAB PO SCH (08:15)
[2020-09-09] MEDS: Multivitamin W/ Minerals 1 TAB PO SCH (08:15)
--- NOTE | 2020-09-09 15:17 | PRG ---
DATE OF SERVICE: 09/09/2020 SUBJECTIVE: Patient was seen and examined at bedside and overnight events noted. Patient denies any shortness of breath or chest pain or palpitation. No history of nausea or vomiting or diarrhea or fever or chills or cramps. OBJECTIVE: GENERAL: This is a well-built male, in no apparent distress. VITAL SIGNS: Temperature 97.8. Heart Rate 81. Respiratory rate 18. Blood pressure 116/78. HEENT: Atraumatic, normocephalic. Oral mucosa is moist. NECK: Supple. CARDIOVASCULAR: S1, S2 heard. Rate and rhythm regular. RESPIRATORY: Clear to auscultation. GASTROINTESTINAL: Abdomen is soft. MUSCULOSKELETAL: No tenderness. No edema. DERMATOLOGIC: No skin rash. NEUROLOGIC: Alert and awake and oriented x3. No focal neurologic deficits. Moving all the extremities. PSYCHIATRIC: Mood and affect normal. LABORATORY DATA: Sodium is 131, potassium 3.7, BUN is 12, creatinine is 0.8. ASSESSMENT AND PLAN: 1. 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 Sodium level better with fluid restriction. The patient wants to quit drinking. 2. Alcohol abuse, counseled. 3. Hypochloremia. 4. Edema, controlled. 5. Anemia of chronic disease. Sodium level is improved. Continue fluid restriction. We will follow. Job ID: [id number]
[2020-09-09 16:44] LABS: Anion Gap 14 mmol/L (10-20); BUN (Urea Nitrogen) 10 mg/dL (8.4-25.7); Calc. Creatinine Clearance 106 mL/min (70-130); Calcium 9.2 mg/dL (7.8-10.44); Carbon Dioxide 29 mmol/L (23-31); Chloride 94 mmol/L (98-107); Glucose 132 mg/dL (80-115); Potassium 4.2 mmol/L (3.5-5.1); Sodium 133 mmol/L (136-145)
--- NOTE | 2020-09-09 17:33 | PDOC.HOSPP ---
- Subjective Encounter Date: 09/09/20 Subjective: Patient is feeling well. Clinical update given to patient and . - Objective Vital Signs & Weight: Vital Signs (12 hours) Temp Pulse Resp BP BP Pulse Ox 09/09/20 15:57 97.8 F 83 17 117/84 100 09/09/20 12:00 97.8 F 81 17 116/78 97 09/09/20 08:00 98.4 F 83 18 106/69 106/69 96 Weight Weight 203 lb 12.8 oz I&O: 09/08/20 09/09/20 09/10/20 06:59 06:59 06:59 Intake Total 120 Output Total 930 Balance -810 Result Diagrams: 09/09/20 03:37 09/09/20 15:58 Hospitalist ROS - Medication Medications: Active Medications Generic Name Dose Route Start Last Admin Trade Name Freq PRN Reason Stop Dose Admin Atorvastatin Calcium 40 mg 09/07/20 21:00 09/08/20 21:59 Atorvastatin Calcium 40 Mg Tab PO 40 mg HS MEDARDO Administration Buspirone HCl 10 mg 09/07/20 21:00 09/09/20 08:15 Buspirone Hcl 10 Mg Tab PO 10 mg BID MEDARDO Administration Clopidogrel Bisulfate 75 mg 09/08/20 09:00 09/09/20 08:15 Clopidogrel Bisulfate 75 Mg Tab PO 75 mg QAM MEDARDO Administration Fluoxetine HCl 40 mg 09/08/20 09:00 09/09/20 08:15 Fluoxetine Hcl 20 Mg Cap PO 40 mg DAILY MEDARDO Administration Folic Acid 1 mg 09/07/20 09:00 09/09/20 08:15 Folic Acid 1 Mg Tab PO 1 mg DAILY MEDARDO Administration Magnesium Sulfate 1 gm/ Sodium 102 mls @ 102 mls/hr 09/06/20 17:00 09/09/20 16:48 Chloride IVPB 102 mls 1700 MEDARDO Administration Iron/Minerals/Multivitamins 1 tab 09/07/20 09:00 09/09/20 08:15 Multivitamin W/ Minerals 1 Tab PO 1 tab DAILY MEDARDO Administration Magnesium Oxide 400 mg 09/07/20 09:00 09/09/20 08:15 Magnesium Oxide 400 Mg Tab PO 400 mg DAILY MEDARDO Administration Thiamine HCl 100 mg 09/07/20 09:00 09/09/20 08:15 Thiamine 100 Mg Tab PO 100 mg DAILY MEDARDO Administration Hospitalist Exam Vitals: Vital Signs (12 hours) Temp Pulse Resp BP BP Pulse Ox 09/09/20 15:57 97.8 F 83 17 117/84 100 09/09/20 12:00 97.8 F 81 17 116/78 97 09/09/20 08:00 98.4 F 83 18 106/69 106/69 96 Weight Weight 203 lb 12.8 oz General Appearance: NAD, awake alert Eye: anicteric sclera ENT: normocephalic atraumatic Heart: RRR, no murmur, no gallops, no rubs Respiratory: CTAB, no wheezes, no rales, no ronchi Extremities: no clubbing, no edema Neurological: cranial nerve grossly intact Musculoskeletal: normal tone, normal strength Psychiatric: normal affect, normal behavior Hosp A/P (1) Acute on chronic systolic (congestive) heart failure Code(s): I50.23 - ACUTE ON CHRONIC SYSTOLIC (CONGESTIVE) HEART FAILURE Status: Acute (2) Syncope Code(s): R55 - SYNCOPE AND COLLAPSE Status: Acute (3) Thrombocytopenia Code(s): D69.6 - THROMBOCYTOPENIA, UNSPECIFIED Status: Acute (4) Acute respiratory failure with hypoxia and hypercapnia Code(s): J96.01 - ACUTE RESPIRATORY FAILURE WITH HYPOXIA; J96.02 - ACUTE RESPIRATORY FAILURE WITH HYPERCAPNIA Status: Acute (5) COPD (chronic obstructive pulmonary disease) Status: Acute (6) Hyperkalemia Code(s): E87.5 - HYPERKALEMIA Status: Acute (7) Hyponatremia Code(s): E87.1 - HYPO-OSMOLALITY AND HYPONATREMIA Status: Acute (8) NSTEMI (non-ST elevated myocardial infarction) Code(s): I21.4 - NON-ST ELEVATION (NSTEMI) MYOCARDIAL INFARCTION Status: Acute (9) Alcohol abuse Code(s): F10.10 - ALCOHOL ABUSE, UNCOMPLICATED Status: Chronic (10) CAD (coronary artery disease) Code(s): I25.10 - ATHSCL HEART DISEASE OF [place] CORONARY ARTERY W/O ANG PCTRS Status: Chronic Qualifiers: Coronary Disease-Associated Artery/Lesion type: [place] artery (11) Cardiomyopathy Code(s): I42.9 - CARDIOMYOPATHY, UNSPECIFIED Status: Chronic Qualifiers: Cardiomyopathy type: ischemic Qualified Code(s): I25.5 - Ischemic cardiomyopathy (12) DM2 (diabetes mellitus, type 2) Status: Chronic (13) HLD (hyperlipidemia) Code(s): E78.5 - HYPERLIPIDEMIA, UNSPECIFIED Status: Chronic (14) HTN (hypertension) Code(s): I10 - ESSENTIAL (PRIMARY) HYPERTENSION Status: Chronic (15) Tobacco abuse Code(s): Z72.0 - TOBACCO USE Status: Chronic - Plan Assessment This is a 70-year-old male past medical history of hypertension, hyperlipidemia, type 2 diabetes mellitus and alcohol abuse. Presented to the hospital with a syncopal episode. Work-up revealed several abnormalities including severe hyponatremia and decompensated heart failure. Received tolvaptan and hypertonic saline during the stay. Syncope work-up included AICD interrogation, which did not reveal any abnormalities. 2D echo revealed an EF of 25% but no valvular abnormalities. Syncope Acute on chronic systolic CHF Severe hyponatremia Alcohol abuse Hypertension Hyperlipidemia Plan: Patient is back to baseline I offered to discharge him this afternoon but patient and declined due to heavy rain outside. Will most likely be discharged tomorrow Continue atorvastatin and Plavix Continue Coreg Continue folic acid, thiamine and multivitamins Patient has been cleared by physical therapy
[2020-09-09] MEDS: Atorvastatin Calcium 40 MG TAB PO SCH (20:10)
[2020-09-09] MEDS: Carvedilol 6.25 MG TAB PO SCH (20:11)
[2020-09-10 07:42] VITALS: BP 127/88; TEMP 98.5
[2020-09-10] MEDS: Clopidogrel Bisulfate 75 MG TAB PO SCH (08:06)
[2020-09-10] MEDS: Carvedilol 6.25 MG TAB PO SCH (08:06)
[2020-09-10] MEDS: Folic Acid 1 MG TAB PO SCH (08:06)
[2020-09-10] MEDS: Multivitamin W/ Minerals 1 TAB PO SCH (08:06)
[2020-09-10] MEDS: FLUoxetine HCl 20 MG CAP PO SCH (08:06)
[2020-09-10] MEDS: Magnesium Oxide 400 MG TAB PO SCH (08:07)
[2020-09-10] MEDS: busPIRone HCl 10 MG TAB PO SCH (08:07)
[2020-09-10] MEDS: Thiamine 100 MG TAB PO SCH (08:07)
--- NOTE | 2020-09-10 10:34 | PDOC.DS.DS ---
Provider Date of Admission: 09/06/20 13:57 Date of Discharge: 09/10/20 Admitting Provider: Jose Alfredo Marie MD Primary Care Physician: Jalen Davies MD Course Hospital Course: This is a 70-year-old male past medical history of hypertension, hyperlipidemia, type 2 diabetes mellitus and chronic alcoholism. He presented to the hospital with a syncopal episode. Work-up revealed several abnormalities including severe hyponatremia, and decompensated heart failure. Received tolvaptan and hypertonic saline during the stay. Chart reviewed showed that he was having jerking, seizure-like movements shortly after presentation. Syncope work-up included AICD interrogation, which did not reveal any abnormalities. 2D echo revealed an EF of 25% but no valvular abnormalities. Patient takes torsemide and entresto at home.. He will also be discharged on coreg, atorvastatin and plavix. His LVEF is now 25%, an improvement from 15%. Resuscitation Status: 09/06/20 15:19 Resuscitation Status Routine Resuscitation Status: FULL: Full Resuscitation Discussed with: Patient Lab Results: 09/09/20 03:37 09/09/20 15:58 Abnormal Lab Results - Last 48 hrs 09/09/20 03:37: Sodium 131 L, Chloride 94 L 09/09/20 03:37: RBC 2.84 L, Hgb 9.5 L, Hct 28.6 L, MCV 101.0 H, MCH 33.4 H, RDW 14.7 H, Plt Count 85 L, Lymphocytes % 18.4 L, Monocytes % 14.5 H, Lymphocytes # 1.0 L, Monocytes # 0.8 H 09/09/20 15:58: Sodium 133 L, Chloride 94 L Vitals: Vital Signs (12 hours) Temp Pulse Resp BP BP BP Pulse Ox 09/10/20 07:41 98.5 F 95 17 127/88 97 09/10/20 04:20 98.6 F 78 12 99/63 99/63 95 09/10/20 00:50 97 Weight Weight 203 lb 1.6 oz Physical Exam: The patient was seen and examined on the day of discharge. General Appearance: NAD, awake alert Eye: anicteric sclera ENT: normocephalic atraumatic Neck: supple Respiratory: CTAB, no wheezes, no rales, no ronchi Cardiovascular: RRR, no murmur, no gallops, no rubs Cardiovascular - other findings: AICD Extremities: no clubbing, no edema Musculoskeletal: normal tone, normal strength PSYCH: normal affect, normal behavior Problem (1) Acute on chronic systolic (congestive) heart failure Code(s): I50.23 - ACUTE ON CHRONIC SYSTOLIC (CONGESTIVE) HEART FAILURE Status: Acute (2) Syncope Code(s): R55 - SYNCOPE AND COLLAPSE Status: Acute (3) Thrombocytopenia Code(s): D69.6 - THROMBOCYTOPENIA, UNSPECIFIED Status: Acute (4) Acute respiratory failure with hypoxia and hypercapnia Code(s): J96.01 - ACUTE RESPIRATORY FAILURE WITH HYPOXIA; J96.02 - ACUTE RESPIRATORY FAILURE WITH HYPERCAPNIA Status: Acute (5) COPD (chronic obstructive pulmonary disease) Status: Acute (6) Hyperkalemia Code(s): E87.5 - HYPERKALEMIA Status: Acute (7) Hyponatremia Code(s): E87.1 - HYPO-OSMOLALITY AND HYPONATREMIA Status: Acute (8) NSTEMI (non-ST elevated myocardial infarction) Code(s): I21.4 - NON-ST ELEVATION (NSTEMI) MYOCARDIAL INFARCTION Status: Acute (9) Alcohol abuse Code(s): F10.10 - ALCOHOL ABUSE, UNCOMPLICATED Status: Chronic (10) CAD (coronary artery disease) Code(s): I25.10 - ATHSCL HEART DISEASE OF [place] CORONARY ARTERY W/O ANG PCTRS Status: Chronic Qualifiers: Coronary Disease-Associated Artery/Lesion type: [place] artery (11) Cardiomyopathy Code(s): I42.9 - CARDIOMYOPATHY, UNSPECIFIED Status: Chronic Qualifiers: Cardiomyopathy type: ischemic Qualified Code(s): I25.5 - Ischemic cardiomyopathy (12) DM2 (diabetes mellitus, type 2) Status: Chronic (13) HLD (hyperlipidemia) Code(s): E78.5 - HYPERLIPIDEMIA, UNSPECIFIED Status: Chronic (14) HTN (hypertension) Code(s): I10 - ESSENTIAL (PRIMARY) HYPERTENSION Status: Chronic (15) Tobacco abuse Code(s): Z72.0 - TOBACCO USE Status: Chronic Plan Prescriptions: Folic Acid [Folvite] 1 mg PO DAILY #30 tab Magnesium Oxide 400 mg PO DAILY #30 tab Multivitamin W/ Minerals [Theragran M] 1 tab PO DAILY #30 tab Thiamine 100 mg PO DAILY #30 tab Home Medications: Medication Instructions Recorded Confirmed Type Clopidogrel Bisulfate [Plavix] 75 mg PO QAM #90 tab 05/13/18 09/07/20 Rx Furosemide [Lasix] 40 mg PO DAILY #90 tab 05/13/18 09/07/20 Rx Nitroglycerin [Nitrostat] 0.4 mg SL Q5MIN PRN #30 tab 05/13/18 09/07/20 Rx Atorvastatin Calcium [Lipitor] 40 mg PO HS #30 tab 11/21/18 09/07/20 Rx Carvedilol [Coreg] 2 tab PO TID-WM 09/07/20 09/07/20 History FLUoxetine HCl [Prozac] 40 mg PO DAILY 09/07/20 09/07/20 History Torsemide 20 mg PO BID 09/07/20 09/07/20 History busPIRone HCl [Buspirone HCl] 10 mg PO BID 09/07/20 09/07/20 History Apixaban [Eliquis] 5 mg PO BID 09/09/20 09/09/20 History Folic Acid [Folvite] 1 mg PO DAILY #30 tab 09/10/20 Rx Magnesium Oxide 400 mg PO DAILY #30 tab 09/10/20 Rx Multivitamin W/ Minerals 1 tab PO DAILY #30 tab 09/10/20 Rx [Theragran M] Thiamine 100 mg PO DAILY #30 tab 09/10/20 Rx Allergies: No Known Allergies Allergy (Verified 09/07/20 03:00) Referrals: Cardiac Rehab - [place] [Outside] (Your doctor has ordered outpatient cardiac rehab for you to begin within 1-2 weeks after you go home from the hospital. The location nearest to you is the [facility]. The front office in [place] will call you in 1-2 days to get you scheduled for your evaluation. Should you have any trouble or need assistance, please call the cardiac rehab main line in [place] at [phone]. ) Jalen Davies MD [Primary Care Provider] - 7 Days (Call the office to schedule an appointment within the next 7 days) Disposition: HOME Quality CORE MEASURES:: N/A Did you prescribe antithrombotic therapy?: Yes
--- NOTE | 2020-09-10 11:47 | PRG ---
DATE OF SERVICE: 09/10/2020 SUBJECTIVE: Patient was seen and examined at bedside and overnight events noted. Patient denies any shortness of breath or chest pain or palpitation. No history of nausea or vomiting or diarrhea or fever or chills or cramps. OBJECTIVE: General: This is a well-built male, in no apparent distress. Vital Signs: Temperature . Heart Rate 95. Respiratory rate 17. blood pressure 127/88. HEENT: Atraumatic, normocephalic. Oral mucosa is moist. Neck: Supple. Cardiovascular: S1, S2 heard. Rate and rhythm regular. Respiratory: Clear to auscultation. Gastrointestinal: Abdomen is soft. Musculoskeletal: No tenderness. No edema. Dermatologic: No skin rash. Neurologic: Alert and awake and oriented x3. No focal neurologic deficits. Moving all the extremities. Psychiatric: Mood and affect normal. LABORATORY DATA: Sodium 133, creatinine is 0.9. ASSESSMENT AND PLAN: 1. 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 Sodium level is better. The patient was encouraged to quit drinking and is motivated to do so. 2. Alcohol abuse. 3. Edema. 4. Anemia of chronic disease. Follow up with Dr. Jade in 1 to 2 weeks. Job ID: [id number]
== END 2020-09-10 11:32 | disposition home or self-care (01) | DRG 280 ==
LOC: ERS 10:50 → ERHOLD 13:57 → 2NO 18:51
PROVIDERS: ADMIT Internal Medicine; ATTEND Internal Medicine
DX: I13.0 Hypertensive heart and chronic kidney disease with heart failure and stage 1 through stage 4 chronic kidney disease, or unspecified chronic kidney disease (principal); I21.4 Non-ST elevation (NSTEMI) myocardial infarction; I50.23 Acute on chronic systolic (congestive) heart failure; J96.01 Acute respiratory failure with hypoxia; J96.02 Acute respiratory failure with hypercapnia; E87.1 Hypo-osmolality and hyponatremia; F10.280 Alcohol dependence with alcohol-induced anxiety disorder; Z20.822 Contact with and (suspected) exposure to COVID-19; E78.5 Hyperlipidemia, unspecified; E78.00 Pure hypercholesterolemia, unspecified; I25.10 Atherosclerotic heart disease of native coronary artery without angina pectoris; I73.9 Peripheral vascular disease, unspecified; D63.1 Anemia in chronic kidney disease; N18.2 Chronic kidney disease, stage 2 (mild); D69.6 Thrombocytopenia, unspecified; I25.5 Ischemic cardiomyopathy; E87.6 Hypokalemia; E87.5 Hyperkalemia; I25.2 Old myocardial infarction; Z79.01 Long term (current) use of anticoagulants; Z79.82 Long term (current) use of aspirin; Z79.899 Other long term (current) drug therapy; Z95.810 Presence of automatic (implantable) cardiac defibrillator; Z87.891 Personal history of nicotine dependence
CPT/HCPCS: 36415; 36416; 71046; 80048; 80053; 82550; 83690; 83735; 83880; 83930; 83935; 84450; 84484; 85025; 87635; 93005; 93306; 93798; 96374; J1940; J3411; J3475; J3490; J7131; U0003; U0005

== ENCOUNTER 2020-11-22 17:10 | Outpatient (CLI) | payer MEDICARE ==
[2020-11-22 18:30] LABS: Hemoglobin 10.7 g/dL (13.5-17.5); Mean Corpuscular HGB CONC 34.1 g/dL (32.0-36.0); Mean Corpuscular Hemoglobin 32.7 pg (27.0-33.0); Mean Platelet Volume 10.7 fl (7.4-10.4); Platelet Count 130 10x3/uL (150-450); RBC Distribution Width 13.8 % (11.5-14.5); Red Blood Cell (RBC) Count 3.27 10x6/uL (4.32-5.72)
[2020-11-22 18:37] LABS: Anion Gap 15 mmol/L (10-20); BUN (Urea Nitrogen) 25 mg/dL (8.4-25.7); Calc. Creatinine Clearance 0 mL/min (70-130); Calcium 9.4 mg/dL (7.8-10.44); Carbon Dioxide 26 mmol/L (23-31); Chloride 98 mmol/L (98-107); Glucose 102 mg/dL (80-115); Potassium 4.7 mmol/L (3.5-5.1); Sodium 134 mmol/L (136-145)
[2020-11-22 19:00] LABS: Band 4 % (5-11); Eosinophils 4 % (0-10); Lymphocytes 12 % (21-51); Monocytes 20 % (0-10); Neutrophil 60 % (42-75)
[2020-11-22 19:05] LABS: MDiff Complete? YES; Manual Diff?? YES
[2020-11-22 19:06] LABS: RBC Morphology Normal
[2020-11-23 00:46] LABS: SARS-CoV-2 PCR by NAA Not Detected (NotDetected)
== END 2020-11-22 17:11 | disposition home or self-care (01) ==
LOC: LABBT 17:10
PROVIDERS: ATTEND Surgery
DX: Z01.818 Encounter for other preprocedural examination (principal); K42.9 Umbilical hernia without obstruction or gangrene; Z20.822 Contact with and (suspected) exposure to COVID-19
CPT/HCPCS: 80048; 85025; 93005; U0003; U0005; 87635; 93010

== ENCOUNTER 2020-11-27 09:15 | Day surgery (SDC) | payer MEDICARE ==
[2020-11-25 16:38] VITALS: BMI 29.2
[2020-11-27] MEDS ORDERED: Bupivacaine 0.25% HCL 30 ML VIAL ONE (11:09)
[2020-11-27] MEDS ORDERED: Lidocaine 1% w/Epinephrine 1:100K 20 ML VIAL ONE (11:09)
[2020-11-27] MEDS ORDERED: Lidocaine 1% PF 5 ML VIAL ONE (11:49)
[2020-11-27] MEDS ORDERED: PROPOFOL 200 MG/20 ML VIAL ONE (11:49)
[2020-11-27] MEDS ORDERED: Rocuronium Bromide 10 MG/ML (10ML VIAL) ONE (11:49)
[2020-11-27] MEDS ORDERED: SUGAMMADEX SODIUM 200 MG/2 ML VIAL ONE (12:18)
== END 2020-11-27 16:20 | disposition home or self-care (01) ==
LOC: SDC 09:15
PROVIDERS: ATTEND Surgery
PROC: 0WUF0JZ Supplement Abdominal Wall with Synthetic Substitute, Open Approach (ICD-10-PCS; principal; 2020-11-27)
DX: K42.9 Umbilical hernia without obstruction or gangrene (principal); I25.2 Old myocardial infarction; E78.5 Hyperlipidemia, unspecified; J44.9 Chronic obstructive pulmonary disease, unspecified; F10.11 Alcohol abuse, in remission; I11.0 Hypertensive heart disease with heart failure; I50.9 Heart failure, unspecified; Z87.891 Personal history of nicotine dependence; Z79.01 Long term (current) use of anticoagulants; Z79.02 Long term (current) use of antithrombotics/antiplatelets; Z79.899 Other long term (current) drug therapy
CPT/HCPCS: J0690; J2704; S0020

== ENCOUNTER 2022-10-12 15:02 | Outpatient (CLI) | payer MEDICARE | END 2022-10-12 15:03 | disposition home or self-care (01) | LOC: BICRAD 15:02 | PROVIDERS: ATTEND Internal Medicine Cardiovascular Disease | DX: I50.22 Chronic systolic (congestive) heart failure (principal); I25.5 Ischemic cardiomyopathy | CPT/HCPCS: 36415; 71046; 80048; 83880 ==